=== PATIENT | female | born 1960 | race Caucasian/White ===

== ENCOUNTER 2019-04-14 18:55 | Emergency (ER) | payer SELFPAY ==
[2019-04-14 19:23] VITALS: BP 157/83; PULSE 76; RESP 16; TEMP 37; O2SAT 96; BMI 31.9
[2019-04-14 19:53] VITALS: BP 144/82; PULSE 73; RESP 16; TEMP 36.7; O2SAT 95
--- NOTE | 2019-04-14 19:58 | XR_ITS ---
WS: [id number] Chest with right rib detail, 04/14/2019 Clinical Data: pain, s/p injury Comparison: PA and lateral chest, 04/26/2013. Findings: The lungs show no nodules, masses, or effusions. The heart is normal. No pneumonia or pneumothorax is seen. The patient has had an anterior cervical disc fusion The ribs are intact. No rib fractures seen. No subcutaneous emphysema is present. The patient has had a posterior lumbar fusion with pedicle screws attached with rods at L5-S1. XR/XR ribs RT mn 3V w CXR1V [id number] Impression: Negative chest with right rib detail.
--- NOTE | 2019-04-14 20:11 | ED_ITS ---
HPI - Fall General: Chief Complaint: Fall Stated Complaint: RIB PAIN Time Seen by Provider: 04/14/19 19:45 Source: patient Mode of arrival: ambulatory Limitations: no limitations History of Present Illness: HPI Narrative: Patient comes in today with complaints of right anterior rib pain. Patient reports falling about 10 days ago while getting up to help her father. Patient reports landing on her right side. Patient reports the pain was significant but continues to persist so she was concerned that she may have a fractured rib and she should not be caring for her father the way she is. Patient appears well. Patient appears in mild pain at rest. Review of Systems General: Reports: 10 or more systems reviewed and unremarkable except in HPI and below Musc: Reports: other (right anterior rib pain) PFSH ED PFSH: Statuses (acute, chronic, etc) shown below reflect problem list status as previously entered and may not be historically accurate Social History Smoking and tobacco status: former smoker Physical Exam Const: COMMON NORMALS: no apparent distress and oriented x3 GENERAL APPEARANCE: cooperative HENMT: COMMON NORMALS: normocephalic, external ears normal, EAC's normal, TM's normal bilaterally and external nose normal HEAD & SCALP: normal to inspection and normocephalic FACE & SINUS: normal facial exam NOSE: external nose normal GENERAL EAR: hearing not grossly impaired EXTERNAL EAR: Yes external ears normal EXTERNAL AUDITORY CANAL: EAC's normal TYMPA [place] MEMBRANE: TM's normal bilaterally MOUTH: oral and palatal mucosa normal THROAT: posterior oropharynx normal Eye: COMMON NORMALS: PERRL and EOMs intact bilaterally PUPIL: Yes PERRL Neck/C-Spine: COMMON NORMALS: full ROM and no lymphadenopathy Lymph: LYMPHATIC: no lymphedema noted Chest: COMMONS NORMALS: inspection of chest normal CHEST: Yes symmetrical chest wall rise, No crepitus and Yes other (right anterior rib pain on palpation) Resp: COMMON NORMALS: normal respiratory effort and clear to auscultation bilaterally AUSCULTATION: clear to auscultation bilaterally Cardio: COMMON NORMALS: regular rate and regular rhythm RATE: regular rate RHYTHM: regular rhythm GI: COMMON NORMALS: normal to inspection, nondistended, normoactive bowel sounds and non-tender : COMMON NORMALS: Yes no CVA tenderness BLADDER/KIDNEY EXAM: Yes no CVA tenderness Back/Pelvis: COMMON NORMALS: no CVA tenderness and thoracic and lumbar spine normal to inspection Extremity: COMMON NORMALS: normal to inspection GENERAL: No edema Neuro: COMMON NORMALS: oriented x3, moves all extremities and no focal motor deficits Psych: COMMON NORMALS: mental status grossly normal and cooperative Skin: COMMON NORMALS: no rashes or lesions noted GENERAL SKIN EXAM: no rashes or lesions noted Course Vital Signs: Vital signs: Vital Signs Temperature 98.0 F 04/14/19 19:53 Pulse Rate 73 04/14/19 19:53 Respiratory Rate 16 04/14/19 19:53 Blood Pressure 144/82 04/14/19 19:53 Pulse Oximetry 95 04/14/19 19:53 MDM - Fall MDM Narrative: Medical decision making narrative: Patient comes in today with complaints of right rib pain. Patient is concerned that she may have a fracture there. Exam notes tenderness to the right lateral lower ribs. Differential diagnosis includes fracture, costochondritis, sprain. X-ray of the did no acute fracture that was obvious. Reviewed exam with patient with recommendations for treatment and follow-up. Patient reports understanding. Discharge Plan Discharge Patient Disposition: Home, Self-Care Clinical Impression: Contusion of rib on right side Qualifiers: Encounter type: initial encounter Qualified Code(s): S20.211A - Contusion of right front wall of thorax, initial encounter Condition: Stable Prescriptions: New naproxen 500 mg tablet 500 mg PO BID Qty: 30 RF: 0 Discharge Orders: Discharge Order (Routine); Ordered 04/14/19 Ordered By: Corey Paiz Discharge Diet: Usual diet Discharge Activity: Increase activity as tolerated Patient Instructions: Thoracic Pain (ED) Activity Restrictions/Additional Instructions: Activity as tolerated Drink plenty of water with medications Follow-up with primary care Return as needed for new concerns Coding Level of Care Code ED Security Sales Manager for Sulma Fwsandra Exam Problem Focused
[2019-04-14 21:12] VITALS: BP 177/93; PULSE 70; RESP 16; TEMP 36.9; O2SAT 100
== END 2019-04-14 21:13 | disposition home or self-care (01) ==
PROVIDERS: Emergency Provider Nurse Practitioner Family
DX: S20.211A Contusion of right front wall of thorax, initial encounter (principal); W19.XXXA Unspecified fall, initial encounter; Z87.891 Personal history of nicotine dependence
CPT/HCPCS: 71101; 99281

== ENCOUNTER 2019-10-28 14:12 | Outpatient (CLI) | payer SELFPAY ==
--- NOTE | 2019-10-28 14:29 | XR_ITS ---
WS: [id number] Right ankle, 3 views, 10/28/2019 Clinical Data: ANKLE PAIN Comparison: None. Findings: No fractures or dislocations are seen. The ankle mortise is normal. The talus and calcaneus are unrem arkable. No soft tissue swelling over the medial or lateral malleolus is seen. There is a small plantar spur and an Achilles spur. XR/XR ankle RT min 3V* [id number] Impression: Negative right ankle.
--- NOTE | 2019-10-28 14:29 | XR_ITS ---
WS: [id number] Right leg including the tibia and fibula, 10/28/2019 Clinical Data: LEG PAIN Comparison: None. Findings: No fractures or dislocations are seen. The tibia and fibula are intact. The soft tissues are normal. XR/XR tibia fibula RT 2V [id number] Impression: Negative for fracture.
== END 2019-10-28 14:13 | disposition home or self-care (01) ==
LOC: RADWPI 14:18
PROVIDERS: PCP Nurse Practitioner Family; Visit Provider Nurse Practitioner Family
DX: M79.604 Pain in right leg (principal); M25.571 Pain in right ankle and joints of right foot
CPT/HCPCS: 73590; 73610

== ENCOUNTER 2020-01-05 15:11 | Outpatient (CLI) | payer SELFPAY ==
--- NOTE | 2020-01-05 15:19 | MM_ITS ---
WS: [id number] BILATERAL DIGITAL SCREENING MAMMOGRAPHY WITH CAD CLINICAL INFORMATION: SCREENING HISTORY: 6 COMPARISON: January 13, 2017 TECHNIQUE: Bilateral CC and MLO views. FINDINGS: The breasts are composed of heterogeneous fibroglandular density tissue, which can limit the detectio n of small underlying mass lesions. No suspicious mass, asymmetry, calcifications, or architectural d istortion. No evidence of malignancy. Incidental axillary tail lymph nodes. A few punctate calcificat ions. Vascular calcification. MM/[place] [id number] IMPRESSION: BI-RADS: 2-Benign FOLLOW UP: 1 Year Follow-up Recommend return to annual screening mammography.
== END 2020-01-05 15:12 | disposition home or self-care (01) ==
LOC: RADSHAW 15:16
PROVIDERS: PCP Nurse Practitioner Family; Visit Provider Internal Medicine
DX: Z12.31 Encounter for screening mammogram for malignant neoplasm of breast (principal)
CPT/HCPCS: 77067

== ENCOUNTER 2020-01-05 15:30 | Outpatient (CLI) | payer SELFPAY ==
--- NOTE | 2020-01-05 15:45 | US_ITS ---
WS: [id number] Pelvic ultrasound, 01/05/2020 Clinical Data: DUB Comparison: None. Findings: The uterus measures 9.6 cm x 4.8 cm x 4.2 cm. There are small fibroids in the uterus. Largest measure s 1.31 x 1.81 x 1.96 cm. The endometrium is 0.8 cm. No intrauterine or abnormal intrauterin e mass is seen. The cervical length is 4.8 cm. The ovaries were not imaged. There is no fluid in the cul-de-sac. US/US pelvic with transvaginal Impression: 1. Uterine leiomyomas. 2. Thickened endometrium. 3. Ovaries not imaged.
== END 2020-01-05 15:31 | disposition home or self-care (01) ==
PROVIDERS: PCP Nurse Practitioner Family; Visit Provider Nurse Practitioner Family
DX: N93.9 Abnormal uterine and vaginal bleeding, unspecified (principal); D25.9 Leiomyoma of uterus, unspecified; R93.89 Abnormal findings on diagnostic imaging of other specified body structures
CPT/HCPCS: 76830; 76856

== ENCOUNTER → 2020-01-25 15:10 | Outpatient (BNVA) | payer SELFPAY | PROVIDERS: PCP Nurse Practitioner Family; Visit Provider Obstetrics & Gynecology | DX: R32 Unspecified urinary incontinence (principal); N95.0 Postmenopausal bleeding | CPT/HCPCS: 80053; 88305 ==

== ENCOUNTER → 2020-02-23 15:55 | Outpatient (BNVA) | payer OTHER, SELFPAY | PROVIDERS: PCP Internal Medicine; Visit Provider Nurse Practitioner Family | DX: Z20.828 Contact with and (suspected) exposure to other viral communicable diseases (principal); J06.9 Acute upper respiratory infection, unspecified; R43.0 Anosmia | CPT/HCPCS: 87635 ==

== ENCOUNTER 2020-02-27 13:56 | Outpatient (CLI) | payer SELFPAY ==
--- NOTE | 2020-02-27 14:00 | XR_ITS ---
WS: [id number] Chest 2 views, 02/27/2020 Clinical Data: COUGH Comparison: PA chest, 04/14/2019. Findings: No nodules, masses or effusions are seen. The heart is normal. The pulmonary vascularity is not increased. No pneumonia or pneumothorax is seen. The aortic arch shows minimal calcification. Th e patient has had an anterior cervical disc fusion. XR/XR chest 2V* [id number] Impression: Negative chest.
== END 2020-02-27 13:57 | disposition home or self-care (01) ==
LOC: RADWPI 13:58
PROVIDERS: PCP Internal Medicine; Visit Provider Nurse Practitioner Family
DX: R05 Cough (principal)
CPT/HCPCS: 71046

== ENCOUNTER → 2020-03-02 14:43 | Outpatient (BNVA) | payer SELFPAY | PROVIDERS: PCP Internal Medicine; Visit Provider Internal Medicine | DX: Z01.812 Encounter for preprocedural laboratory examination (principal); Z20.828 Contact with and (suspected) exposure to other viral communicable diseases | CPT/HCPCS: 87635 ==

== ENCOUNTER 2020-03-06 14:06 | Outpatient (CLI) | payer SELFPAY ==
--- NOTE | 2020-03-06 14:19 | CT_ITS ---
WS: [id number] LDCT LUNG CANCER SCREENING HISTORY: NICOTINE DEPENDENCE TECHNIQUE: Axial imaging performed from the apices to 1 cm below the costophrenic angles. Coronal and sagittal reformats are submitted with axial MIP series. All CT scans at [facility] use at least one of these dose optimization techniques: automated exposure control; mA and/or kV adjustment per patient size (includes targeted exams where dose is matched to clinical indication); or iterativ e reconstruction. DLP: 57.75 mGy.cm DIvol: 1.58 mGy COMPARISON: None available. Diagnostic quality: Limited by body habitus. Lung Nodules: Partially calcified 3 mm nodule medial LEFT upper lobe on image 61 of series 3. Otherwi se interstitial thickening bilaterally with thickening of the distal airways. No endobronchial lesion s. Lungs: Upper expanded lungs with emphysema. Heart: Mild enlargement of the heart. Other findings: Pulmonary artery size is slightly enlarged. Small hiatal hernia. CT/CT lung screening [id number] IMPRESSION: LUNG-RADS: 1-Negative FOLLOW UP: 12 Month: Continue annual screening with LDCT OTHER FINDINGS (S MODIFIER): None.
== END 2020-03-06 14:07 | disposition home or self-care (01) ==
LOC: RAD 14:15
PROVIDERS: PCP Internal Medicine; Visit Provider Internal Medicine
DX: Z12.2 Encounter for screening for malignant neoplasm of respiratory organs (principal); F17.200 Nicotine dependence, unspecified, uncomplicated; K44.9 Diaphragmatic hernia without obstruction or gangrene
CPT/HCPCS: G0297

== ENCOUNTER 2020-03-07 13:15 | Outpatient (CLI) | payer SELFPAY ==
--- NOTE | 2020-03-07 09:06 | PFTS_ITS ---
Date of Study:03/07/20 Date of Dictation: 03/07/20 MECHANICS: Forced vital capacity (FVC) is normal. Forced expiratory volume in one second (FEV1) is normal. FEV1/FVC is normal. FLOW VOLUME LOOP: normal. . LUNG VOLUMES: Not measured DIFFUSING CAPACITY FOR CARBON MONOXIDE: Not measured . INTERPRETATION: The spirometry is normal. MTDD
--- NOTE | 2020-03-07 14:36 | PFTS_ITS ---
Date of Study:03/07/20 Date of Dictation: MECHANICS: Forced vital capacity (FVC) is . Forced expiratory volume in one second (FEV1) is . FEV1/FVC is . FLOW VOLUME LOOP: . LUNG VOLUMES: Total lung capacity (TLC) is . Residual volume (RV) is . DIFFUSING CAPACITY FOR CARBON MONOXIDE: . INTERPRETATION: The pulmonary function tests are . mechanics and lung volumes. Gas exchange (DLCO) is . MTDD
== END 2020-03-07 13:16 | disposition home or self-care (01) ==
LOC: RT 13:16
PROVIDERS: PCP Internal Medicine; Visit Provider Internal Medicine
DX: R05 Cough (principal)
CPT/HCPCS: 94010

== ENCOUNTER → 2020-03-21 15:42 | Outpatient (BNVA) | payer SELFPAY | PROVIDERS: Absent Provider Internal Medicine; PCP Internal Medicine; Referring Provider Obstetrics & Gynecology; Visit Provider Nurse Practitioner Family | DX: N39.46 Mixed incontinence (principal) | CPT/HCPCS: 81003; 87086 ==

== ENCOUNTER → 2020-04-05 12:57 | Outpatient (BNVA) | payer SELFPAY | PROVIDERS: PCP Internal Medicine; Visit Provider Nurse Practitioner Family | DX: R32 Unspecified urinary incontinence (principal); N39.46 Mixed incontinence | CPT/HCPCS: 81003 ==

== ENCOUNTER 2020-04-25 11:27 | Outpatient (CLI) | payer SELFPAY ==
--- NOTE | 2020-04-25 11:33 | US_ITS ---
WS: [id number] ULTRASOUND RENAL TECHNIQUE: Ultrasound examination of both kidneys. CLINICAL INFORMATION: CKD STAGE 3 COMPARISON: None. FINDINGS: RIGHT: Right kidney is normal in size and appearance. Echogenicity: Normal. Cortical thickness: 1.5 cm; Normal. Hydronephrosis: None. Perinephric fluid: None. Right kidney measures: 10.6 cm x 5.8 cm x 4.8 cm. LEFT: Left kidney is normal in size and appearance. Echogenicity: Normal. Cortical thickness: 1.4 cm; Normal. Hydronephrosis: None. Perinephric fluid: None. Left kidney measures: 10.7 cm x 6.1 cm x 6.8 cm. Normal visualized aorta. US/US renal BI* [id number] IMPRESSION: Normal renal ultrasound
== END 2020-04-25 11:28 | disposition home or self-care (01) ==
LOC: US 11:29
PROVIDERS: PCP Internal Medicine; Visit Provider Registered Nurse
DX: N18.32 Chronic kidney disease, stage 3b (principal)
CPT/HCPCS: 76770

== ENCOUNTER 2020-04-26 14:16 | Outpatient (CLI) | payer SELFPAY ==
[2020-04-26 15:05] LABS: Basophils # 0.1 10^3/uL (0.0-0.1); Basophils % 0.9 %; Eosinophils # 0.2 10^3/uL (0.0-0.8); Eosinophils % 2.3 %; Hematocrit 42.3 % (37.0-47.0); Hemoglobin 13.8 g/dL (11.5-15.3); Lymphocytes # 2.3 10^3/uL (0.8-4.8); Lymphocytes % 30.4 %; Mean Corpuscular HGB Conc 32.6 g/dL (30.0-36.0); Mean Corpuscular Hemoglobin 32.1 pg (28.0-34.0); Mean Corpuscular Volume 98.4 fL (81-99); Mean Platelet Volume 9.7 fL (7.4-10.4); Monocytes # 0.5 10^3/uL (0.2-0.9); Monocytes % 6.9 %; Neutrophils # 4.54 10^3/uL (1.8-7.7); Neutrophils % 59.2 %; Nucleated Red Blood Cells % 0 %; Platelet Count 282 10^3/cmm (130-400); Red Cell Distribution Width 13.8 % (12.1-15.1); White Blood Count 7.7 10^3/uL (4.0-10.0)
[2020-04-26 15:16] LABS: Albumin Level 4.3 g/dL (3.5-5.2); Anion Gap 11.6 (5-19); Blood Urea Nitrogen 18 mg/dL (6-20); Calcium 9.7 mg/dL (8.5-10.5); Carbon Dioxide 29 mmol/L (22-29); Chloride 103 mmol/L (98-107); Glomerular Filtration Rate 73.4 mL/min (90-130); Glucose 166 mg/dL (65-115); Phosphorus 3.5 mg/dL (2.5-4.5); Potassium 4.6 mmol/L (3.5-5.1); Sodium 139 mmol/L (136-145)
== END 2020-04-26 14:17 | disposition home or self-care (01) ==
LOC: LAB 14:20
PROVIDERS: PCP Internal Medicine; Visit Provider Internal Medicine Nephrology
DX: N18.32 Chronic kidney disease, stage 3b (principal)
CPT/HCPCS: 36415; 80069; 85025

== ENCOUNTER → 2020-04-28 17:16 | Outpatient (BNVA) | payer OTHER, SELFPAY | PROVIDERS: PCP Internal Medicine; Visit Provider Nurse Practitioner | DX: Z20.828 Contact with and (suspected) exposure to other viral communicable diseases (principal); B34.9 Viral infection, unspecified | CPT/HCPCS: 87635 ==

== ENCOUNTER 2020-05-03 15:38 | Inpatient (IN) | payer SELFPAY ==
[2020-05-03] VITALS (8 sets, daily range): BP systolic 116–158; BP diastolic 63–82; PULSE 61–91; RESP 14–18; TEMP 36.7–37; O2SAT 91–98; BMI 30.4
--- NOTE | 2020-05-03 16:06 | ECG_ITS ---
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
--- NOTE | 2020-05-03 16:06 | XRR_ITS ---
PROCEDURE INFORMATION: Exam: XR Chest, 1 View Exam date and time: 05/03/2020 4:13 PM Age: 59 years old Clinical indication: Type not specified; Prior surgery; Surgery type: Breast; Patient HX: Central chest pain , achy pain in upper abd TECHNIQUE: Imaging protocol: XR of the chest Views: 1 view. COMPARISON: CR XR chest 2V* [id number] 02/27/2020 2:07 PM FINDINGS: Lungs: No consolidation. Pleural spaces: Unremarkable. No pleural effusion. No pneumothorax. Heart/Mediastinum: No cardiomegaly. Bones/joints: No acute fracture. Surgical hardware noted in the lower cervical spine. XR/XR chest 1V portable [id number] IMPRESSION: No acute findings.
[2020-05-03 16:30] LABS: Basophils # 0.1 10^3/uL (0.0-0.1); Basophils % 0.8 %; Eosinophils # 0.2 10^3/uL (0.0-0.8); Eosinophils % 2.1 %; Hematocrit 41.6 % (37.0-47.0); Hemoglobin 13.9 g/dL (11.5-15.3); Lymphocytes # 2.4 10^3/uL (0.8-4.8); Lymphocytes % 29.1 %; Mean Corpuscular HGB Conc 33.4 g/dL (30.0-36.0); Mean Corpuscular Volume 98.8 fL (81-99); Mean Platelet Volume 9.4 fL (7.4-10.4); Monocytes # 0.5 10^3/uL (0.2-0.9); Monocytes % 5.6 %; Neutrophils % 62.2 %; Nucleated Red Blood Cells % 0 %; Platelet Count 252 10^3/cmm (130-400); Red Blood Count 4.21 10^6/uL (4.1-5.3); Red Cell Distribution Width 13.7 % (12.1-15.1); White Blood Count 8.4 10^3/uL (4.0-10.0)
[2020-05-03] MEDS: aspirin 81 mg Chew Tablet 324 MG PO (16:33)
[2020-05-03 16:57] LABS: Alanine Aminotransferase 19 U/L (0-33); Albumin Level 4.2 g/dL (3.5-5.2); Alkaline Phosphatase 79 IU/L (35-105); Anion Gap 15.2 (5-19); Aspartate Amino Transferase 21 U/L (0-32); Blood Urea Nitrogen 19 mg/dL (6-20); Calcium 9.2 mg/dL (8.5-10.5); Carbon Dioxide 25 mmol/L (22-29); Chloride 103 mmol/L (98-107); Globulin 3.2 g/dL (1.3-4.6); Glomerular Filtration Rate 73.4 mL/min (90-130); Glucose 177 mg/dL (65-115); Osmolality Calculated 295 mOsm/kg (285-295); Potassium 4.2 mmol/L (3.5-5.1); Sodium 139 mmol/L (136-145); Total Bilirubin 0.5 mg/dL (0.15-1.2); Total Protein 7.4 g/dL (6.6-8.7)
[2020-05-03 16:58] LABS: Troponin(5th) Baseline 6 ng/L (0-10)
[2020-05-03 17:15] LABS: D Dimer 0.29 ug/mIFEU (0-0.59)
[2020-05-03 17:30] LABS: SARS Covid-2 Antigen Negative (Negative)
--- NOTE | 2020-05-03 17:49 | W.ED.CHESTPA ---
HPI - Chest Pain General: Chief Complaint: Chest Pain Stated Complaint: CHEST PAIN, SOB, MUSCLE ACHES Time Seen by Provider: 05/03/20 16:03 History of Present Illness: HPI narrative: This patient is a 59-year-old female who presents today with chest pain and shortness of breath. She reports that 8 days ago she started feeling poorly with cough, subjective fevers, chills, body aches. Thursday she felt worse and went to urgent care where she was tested for Covid. That was a PCR test and it was negative. She was put on a Z-Parker for presumed bronchitis. She is a smoker. She continues to not feel very well. 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 She was able to continue working and went to her next clients house where she developed chest pain. That prompted her to come to the ER. She said even starting a week ago she had pain across her lower ribs in the back which gradually spread across around the front of her chest. This chest pain today is similar but worse. She does have history of being a smoker but said she had some pulmonary function tests and a CT scan fairly recently that were normal. She does not have a history of cardiac disease. She does have a family history of heart disease. She also has high blood pressure and high cholesterol. MD complaint: chest pain Onset (ago): week(s) (1, chest pain for 1 day) Timing of current episode: episodic Prior episodes: No Onset: during exertion Pain location: left chest and right chest Pain radiation: back Severity: severe Quality: tightness, aching and heaviness Relieving factors: nothing Exacerbating factors: exertion and inspiration Context: recent illness Associated symptoms: Reports diaphoresis, dyspnea, fever(s) and nausea Treatment prior to arrival: none Review of Systems General: Reports: 10 or more systems reviewed and unremarkable except in HPI and below Const: Reports: fever(s) and diaphoresis Eyes: Denies: change in vision ENMT: Denies: odynophagia Card: Reports: chest pain, lightheadedness and dyspnea on exertion; Denies: swelling of feet/ankles Resp: Reports: dyspnea, productive cough and change in phlegm color; Denies: non-productive cough GI: Reports: nausea : Denies: flank pain or difficulty voiding Musc: Denies: neck pain or back pain Skin/Breast: Denies: rash Neuro: Denies: headache(s), numbness in extremities or weakness in extremities Dennis/Lymph: Denies: easy bruising or easy bleeding PFS ED PFSH: Medical History Anxiety Back pain, chronic Depression Hypercholesterolemia Hypertension Hypothyroidism Osteoarthritis Urinary incontinence, mixed Surgical History H/O left wrist surgery H/O Spinal surgery ALDF and ACDF. H/O vaginal surgery Urethral sling History of 2 sections S/P colonoscopy S/P excision of lipoma Right buttocks. S/P lumpectomy, left breast S/P tonsillectomy Family History Mother Anemia Alzheimer disease Father Heart disease Hypertension Kidney disease COPD (chronic obstructive pulmonary disease) Social History Smoking and tobacco status: current every day smoker cigarettes Packs smoked per day: 0.75 [ Other cigarette details: started age 15 ] and e-cigarettes E-Cigarette Details: vaporizer device Quit status (tobacco): has tried quititng Alcohol intake: current Alcohol intake frequency: 0-2 Drinks per Day Substance/Drug Use: never Physical Exam Const: COMMON NORMALS: patient oriented x3, no limitations and alert GENERAL APPEARANCE: cooperative and anxious NUTRITIONAL APPEARANCE: overweight ORIENTATION/CONSCIOUSNESS: Yes awake, Yes oriented to person, Yes oriented to place and Yes oriented to time HENMT: HEAD & SCALP: normal to inspection FACE & SINUS: normal facial exam Eye: GENERAL EYE: appearance normal, both eyes and all related structures Neck/C-Spine: COMMON NORMALS: supple, no meningeal signs and no JVD Chest: COMMONS NORMALS: normal inspection of the chest Resp: COMMON NORMALS: normal respiratory effort and No use of accessory muscles AUSCULTATION: crackles Laterality: bilateral Cardio: COMMON NORMALS: no JVD, regular rate, regular rhythm and No murmurs present (Cardio) RATE: regular rate RHYTHM: regular rhythm GI: COMMON NORMALS: Normal to inspection, nondistended, normoactive bowel sounds present, Soft to palpation and non-tender INSPECTION: Yes normal to inspection AUSCULTATION: Yes normoactive bowel sounds PALPATION: Yes Soft to palpation Back/Pelvis: COMMON NORMALS: thoracic and lumbar spine normal to inspection Extremity: COMMON NORMALS: normal to inspection Neuro: COMMON NORMALS: patient oriented x3, moves all extremities, no focal motor deficits and no sensory deficits noted SENSORIUM/ORIENTATION: Yes alert, Yes oriented to person, Yes oriented to place and Yes oriented to time MENINGEAL SIGNS: Yes no meningeal signs Psych: COMMON NORMALS: mental status grossly normal, cooperative and normal affect Skin: COMMON NORMALS: no rashes or lesions noted and turgor normal GENERAL SKIN EXAM: no rashes or lesions noted and turgor normal Course ED course: Patient presents with chest pain, shortness of breath. This was exertional but she also describes symptoms of a viral URI going on for about a week. She had a negative Covid test but I did repeat that here. The antigen was negative but I have sent a PCR as well. Chest x-ray and other work-up does not really suggest Covid. She has a left bundle branch block on her EKG and I do not have an old EKG for comparison. She tells me that in the past when she has had EKGs she has been told that they were completely normal. She does not have a PE. There is no evidence of pneumonia. She does have multiple risk factors for cardiac disease including cholesterol, hypertension, family history, smoking and she also had an elevated blood sugar today which she did not anticipate. She is never had a cardiac work-up. I think it is reasonable to bring her in to do that given the exertional nature of her chest pain and shortness of breath today. Vital Signs: Vital signs: Vital Signs Temperature 98.6 F 05/03/20 23:00 Pulse Rate 61 05/03/20 23:00 Respiratory Rate 18 05/03/20 23:00 Blood Pressure 147/68 05/03/20 23:00 Pulse Oximetry 96 05/03/20 23:00 MDM - Chest Pain MDM Narrative: Medical decision making narrative: Covid, viral URI, PE, pneumonia, bronchitis, NM, unstable angina, aortic dissection, dehydration, electrolyte abnormality. Lab Data: Labs: Lab Results 05/03/20 05/03/20 05/03/20 Range/Units 16:22 16:22 16:22 WBC 8.4 (4.0-10.0) 10^3/ uL RBC 4.21 (4.1-5.3) 10^6/u L Hgb 13.9 (11.5-15.3) g/dL Hct 41.6 (37.0-47.0) % MCV 98.8 (81-99) fL MCH 33.0 (28.0-34.0) pg MCHC 33.4 (30.0-36.0) g/dL RDW 13.7 (12.1-15.1) % Plt Count 252 (130-400) 10^3/c mm MPV 9.4 (7.4-10.4) fL Neut % (Auto) 62.2 % Lymph % (Auto) 29.1 % Wilkinson % (Auto) 5.6 % Eos % (Auto) 2.1 % Baso % (Auto) 0.8 % Neut # (Auto) 5.20 (1.8-7.7) 10^3/u L Lymph # (Auto) 2.4 (0.8-4.8) 10^3/u L Wilkinson # (Auto) 0.5 (0.2-0.9) 10^3/u L Eos # (Auto) 0.2 (0.0-0.8) 10^3/u L Baso # (Auto) 0.1 (0.0-0.1) 10^3/u L Nucleated RBC % (a uto) 0 % Nucleated RBCs # 0.0 /100WBC D-Dimer 0.29 (0-0.59) ug/mIFE U Sodium 139 (136-145) mmol/L Potassium 4.2 (3.5-5.1) mmol/L Chloride 103 (98-107) mmol/L Carbon Dioxide 25 (22-29) mmol/L Anion Gap 15.2 (5-19) BUN 19 (6-20) mg/dL Creatinine 0.8 (0.5-0.9) mg/dL GFR Calculation 73.4 L (90-130) mL/min Glucose 177 H (65-115) mg/dL Calculated Osmolal ity 295 (285-295) mOsm/k g Calcium 9.2 (8.5-10.5) mg/dL Total Bilirubin 0.5 (0.15-1.2) mg/dL AST 21 (0-32) U/L ALT 19 (0-33) U/L Alkaline Phosphata se 79 (35-105) IU/L Troponin T Baselin e (0-10) ng/L Troponin T 120 Min shaka (0-10) ng/L Delta Troponin T (0-10) ABS# Total Protein 7.4 (6.6-8.7) g/dL Albumin 4.2 (3.5-5.2) g/dL Globulin 3.2 (1.3-4.6) g/dL SARS-CoV-2 Ag (Rap id) (Negative) 05/03/20 05/03/20 05/03/20 Range/Units 16:22 16:36 18:15 WBC (4.0-10.0) 10^3/ uL RBC (4.1-5.3) 10^6/u L Hgb (11.5-15.3) g/dL Hct (37.0-47.0) % MCV (81-99) fL MCH (28.0-34.0) pg MCHC (30.0-36.0) g/dL RDW (12.1-15.1) % Plt Count (130-400) 10^3/c mm MPV (7.4-10.4) fL Neut % (Auto) % Lymph % (Auto) % Wilkinson % (Auto) % Eos % (Auto) % Baso % (Auto) % Neut # (Auto) (1.8-7.7) 10^3/u L Lymph # (Auto) (0.8-4.8) 10^3/u L Wilkinson # (Auto) (0.2-0.9) 10^3/u L Eos # (Auto) (0.0-0.8) 10^3/u L Baso # (Auto) (0.0-0.1) 10^3/u L Nucleated RBC % (a uto) % Nucleated RBCs # /100WBC D-Dimer (0-0.59) ug/mIFE U Sodium (136-145) mmol/L Potassium (3.5-5.1) mmol/L Chloride (98-107) mmol/L Carbon Dioxide (22-29) mmol/L Anion Gap (5-19) BUN (6-20) mg/dL Creatinine (0.5-0.9) mg/dL GFR Calculation (90-130) mL/min Glucose (65-115) mg/dL Calculated Osmolal ity (285-295) mOsm/k g Calcium (8.5-10.5) mg/dL Total Bilirubin (0.15-1.2) mg/dL AST (0-32) U/L ALT (0-33) U/L Alkaline Phosphata se (35-105) IU/L Troponin T Baselin e 6 (0-10) ng/L Troponin T 120 Min shaka 6.00 (0-10) ng/L Delta Troponin T 0 (0-10) ABS# Total Protein (6.6-8.7) g/dL Albumin (3.5-5.2) g/dL Globulin (1.3-4.6) g/dL SARS-CoV-2 Ag (Rap id) Negative (Negative) Discharge Plan Discharge Admit Provider: Salvatore Geronimo Coding Level of Care Code ED Medicaid Service Coordinator for Chg Fwd Exam Comprehensive
--- NOTE | 2020-05-03 18:06 | ECG_ITS ---
[facility] Test Date: 2020-05-03 Pat Name: Ryan Sanchez Department: Room: Gender: Female Visual Supervisor: : 1960 Requested By: Marquita Lima Order Number: [id number] Reading MD: WOODROW DOTY Measurements Intervals [place] Rate: 74 P: 62 TN: 146 QRS: 64 QRSD: 152 T: 46 QT: 424 QTc: 473 Interpretive Statements SINUS RHYTHM LEFT BUNDLE BRANCH BLOCK [120+ ms QRS DURATION, 80+ ms Q/S IN V1/V2, 85+ ms R IN I/aVL/V5/V6] Compared to ECG 05/03/2020 15:57:24 Left bundle-branch block now present Electronically Signed On 05-03-2020 18:19:01 HOMOGENIZER OPERATOR by WOODROW DOTY [id number]
--- NOTE | 2020-05-03 18:39 | CTR_ITS ---
PROCEDURE INFORMATION: Exam: CT Chest With Contrast; Diagnostic Exam date and time: 05/03/2020 7:12 PM Age: 59 years old Clinical indication: Prior surgery; Surgery type: Breast; Patient HX: Central chest pain, SOB TECHNIQUE: Imaging protocol: Diagnostic computed tomography of the chest with contrast. Radiation optimization: All CT scans at this facility use at least one of these dose optimization techniques: automated exposure control; mA and/or kV adjustment per patient size (includes targeted exams where dose is matched to clinical indication); or iterative reconstruction. Contrast material: OMNI 300; Contrast volume: 95 ml; Contrast route: INTRAVENOUS (IV); COMPARISON: CR XR chest 1V portable [id number] 05/03/2020 4:23 PM RADIATION DOSE METRICS: Total DLP (mGy-cm): 747.98 FINDINGS: There are degenerative changes of the spine. There is atelectasis and scarring within the lung bases. There is no focal consolidation. There is no pleural effusion. There is no pneumothorax. There are no suspicious pulmonary nodules. The central airways are normal in caliber. The thyroid gland is unremarkable. Prominent mediastinal lymph nodes are present. There is no hilar adenopathy. The aorta is normal in caliber with no evidence for aneurysm or dissection. The heart is normal in size. The upper abdominal structures are unremarkable. CT/CT chest w con* [id number] IMPRESSION: 1. The scarring atelectasis within the lung bases. No focal infiltrates. Findings appear similar to the recent CT lung cancer screening. 2. Prominent mediastinal lymph nodes similar to the old exam. Radiation Dose CTDIVOL = (mGy): DLP = 747.98 (mGy-cm)
[2020-05-03 18:44] LABS: Troponin 5 2HR Delta 0 ABS# (0-10)
[2020-05-03] MEDS: iohexol 300 mg/mL 100 mL Btl IV (19:25)
[2020-05-03] MEDS: aspirin 325 mg Tablet PO (21:37)
[2020-05-03] MEDS: HYDROcodone-acetaminophen 10-325 mg Tablet 1 TAB PO (21:38)
--- NOTE | 2020-05-03 21:41 | P.HP_ITS ---
Providers/Chief Complaint Primary Care Provider: Veronica Dial MD Chief Complaint: CHEST PAIN, SOB, MUSCLE ACHES History of Present Illness Ryan Sanchez is a 59 year old female who carries history of hypothyroidism, depression/anxiety presented today with chief complaint of chest discomfort. 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 She experienced diaphoresis with mild exertion however denied nausea, vomiting, diarrhea orthopnea and PND. She is describing her chest discomfort as constant which gets worse on movement. Diagnostics in the ER revealed normal CBC, BMP hemodynamics, troponin 6x2 Covid antigen negative, EKG showed new left bundle branch block, patient was chest pain-free at the time of my evaluation She is an active smoker smokes half pack to 1 pack a day, decision was made to admit her and do a stress test Review of Systems Const: Reports: body aches, fatigue and malaise; Denies: fever(s) Eyes: Denies: change in vision ENMT: Denies: throat pain Card: Reports: chest pain; Denies: edema, swelling of feet/ankles or orthopnea Resp: Denies: dyspnea GI: Denies: abdominal pain : Denies: flank pain Musc: Denies: neck pain Skin/Breast: Denies: rash Neuro: Denies: headache(s) Psych: Denies: anxiety Endo: Denies: polyuria Dennis/Lymph: Denies: easy bruising All/Imm: Denies: urticaria Medications/Allergies Home Medications Medication Instructions Recorded Confirmed Last Taken Type atorvastatin 40 mg tablet 40 mg PO .COMPLEX 01/16/20 04/05/20 Unknown History cyclobenzaprine 5 mg tablet See Rx Instructions PO TID PRN 01/16/20 04/05/20 Unknown History gabapentin 300 mg capsule 300 mg PO .COMPLEX PRN 01/16/20 04/05/20 Unknown History levothyroxine 75 mcg capsule 75 mcg PO DAILY 01/16/20 04/05/20 Unknown History sertraline 100 mg tablet 100 mg PO DAILY 01/16/20 04/05/20 Unknown History lorazepam 0.5 mg tablet 0.5 mg PO DAILY PRN 01/25/20 04/05/20 Unknown History amlodipine 2.5 mg tablet 2.5 mg PO DAILY 04/05/20 04/05/20 Unknown History azithromycin 250 mg tablet See Rx Instructions PO .COMPLEX #6 04/28/20 04/28/20 Unknown Rx tab meloxicam 15 mg tablet 15 mg PO DAILY 04/28/20 04/28/20 Unknown History Allergies Allergy/AdvReac Type Severity Reaction Status Date / Time No Known Allergies Allergy Verified 04/28/20 16:36 PFSH Acute PFSH: Medical History Anxiety Back pain, chronic Depression Hypercholesterolemia Hypertension Hypothyroidism Osteoarthritis Urinary incontinence, mixed Surgical History H/O left wrist surgery H/O Spinal surgery ALDF and ACDF. H/O vaginal surgery Urethral sling History of 2 sections S/P colonoscopy S/P excision of lipoma Right buttocks. S/P lumpectomy, left breast S/P tonsillectomy Family History Mother Anemia Alzheimer disease Father Heart disease Hypertension Kidney disease COPD (chronic obstructive pulmonary disease) Social History Smoking and tobacco status: current every day smoker cigarettes Packs smoked per day: 0.75 [ Other cigarette details: started age 15 ] and e-cigarettes E- Cigarette Details: vaporizer device Quit status (tobacco): has tried quititng Alcohol intake: current Alcohol intake frequency: 0-2 Drinks per Day Substance/Drug Use: never Vitals/I&O/Wt Last Vital Signs Temp 98.0 F 05/03/20 15:48 Pulse 78 05/03/20 20:22 Resp 16 05/03/20 20:22 BP 116/67 05/03/20 20:22 Pulse Ox 91 05/03/20 20:22 Weight last 48 hrs Weight 90.718 kg Physical Exam Narrative: EXAM NARRATIVE: Very pleasant middle-aged female No active chest pain shortness of breath Appears stated age No active CHF presentation S1, S2 no signs of murmur or CHF Abdomen soft nontender bowel sound present Bilateral breath sounds without adventitious rhonchi or crackles Bilateral lower extremity without any edema gangrene or ulcer Patient does depict signs of anxiety with pressured speech No neurological deficit awake alert oriented x3 GCS 15 No joint swelling Her pain is not reproducible Data : 05/03/20 16:22 05/03/20 16:22 A&P Assessment and plan (1) Unstable angina: Unstable angina with multiple risk factors for coronary disease such as smoking, age, hypothyroidism, hypertension Would request Lexiscan stress test in the morning Echo, serial troponin and EKG Patient is chest pain-free troponin 6x2 EKG showing new left bundle branch block D-dimer unremarkable, her pain is not reproducible She is also describing pain in her shoulders bilaterally We will keep her n.p.o. and follow-up with Lexiscan stress test results Follow-up with TSH Status: Acute Additional A&P Information Hypothyroidism: Continue levothyroxine 75 mcg, follow-up with TSH N.p.o., start cardiac diet after stress test DVT prophylaxis: Lovenox Full code Anxiety/depression: I am holding her cyclobenzaprine, sertraline and lorazepam for now. Attestations Medical Necessity Statement*: Anticipating discharge in less than 48 hours continued Lexiscan stress test to rule out coronary ischemia for unstable angina Time Spent in Patient Care: (>than 50% of time spent in counselling and/or direct pt care on unit) . 50mins Coding Level of Care Code Acute [employer] for Chg Fwd Diagnoses Unstable angina I20.0
[2020-05-03] MEDS: doxycycline 100 mg Tablet PO (21:43)
--- NOTE | 2020-05-03 22:06 | ECG_ITS ---
[facility] [place] Test Date: 2020-05-03 Pat Name: Ryan Sanchez Department: Room: 259 Gender: Female Clinic Md Associate: : 1960 Requested By: Marquita Lima Order Number: [id number] Nick MD: Divya Antonio M.D. Measurements Intervals [place] Rate: 70 P: 66 VA: 144 QRS: 47 QRSD: 151 T: 55 QT: 442 QTc: 477 Interpretive Statements SINUS RHYTHM LEFT BUNDLE BRANCH BLOCK [120+ ms QRS DURATION, 80+ ms Q/S IN V1/V2, 85+ ms R IN I/aVL/V5/V6] Compared to ECG 05/03/2020 16:33:16 No significant changes Electronically Signed On 05-04-2020 16:10:56 INSURANCE LICENSING SUPERVISOR by Divya Atnonio M.D. [email or web address]
[2020-05-04] VITALS (11 sets, daily range): BP systolic 101–137; BP diastolic 53–82; PULSE 62–78; RESP 18–20; TEMP 36.3–37; O2SAT 96–98
--- NOTE | 2020-05-04 02:12 | NMCV_ITS ---
NM omega perf SPECT r/s* [id number] Ryan Sanchez Age: 59 Gender: F : 1960 Exam Date: 05/04/2020 11:32 Ordering Phys: Salvatore Geronimo MD Technologist: SOFIE Burnett Exam Location: [facility] Indications: Chest pain, SOB, muscle aches STRESS TEST Please see separate stress test report in [facility] for full findings IMAGE PROTOCOL Rest/Stress 1 Lexiscan Day Radiopharmaceutical Dose (mCi) Administration Site Administered by Rest: Tc-99m 11.0 IV SOFIE Burnett Sestamibi Stress:Tc-99m 33.0 IV SOFIE Burnett Sestamibi Rest: 04-May-2020 60 Discovery 630 Stress: 04-May-2020 45 Discovery 630 0.4mg Lexiscan. Images obtained in supine and prone position. SPECT RESULTS Technical Quality: Good Raw Data Analysis: Breast attenuation Image Corrections: No attenuation or motion correction applied Summed Stress Score: 7 Summed Rest Score: 13 Summed Difference Score: 0 PERFUSION FINDINGS Large area of patchy reduced tracer uptake with fixed perfusion defect noted in basal to distal anterior wall suggestive of old myocardial infarction versus scarring in the LAD territory. Large area of fixed perfusion defect noted in basal inferior and inferio-septal wall suggestive of old myocardial infarction versus scarring in the RCA territory. No ischemia noted. FUNCTIONAL RESULTS (calculated via Gated SPECT) Stress Image LV EF (%): 30 Stress EDV (mL):144 TID: 1.05 Stress ESV (mL):101 Rest Image LV EF (%): 39 FUNCTIONAL FINDINGS: Anterior wall hypokinesis, inferior wall akinesis IMPRESSIONS Large area of patchy reduced tracer uptake with fixed perfusion defect noted in basal to distal anterior wall suggestive of old myocardial infarction versus scarring in the LAD territory. Large area of fixed perfusion defect noted in basal inferior and inferio-septal wall suggestive of old myocardial infarction versus scarring in the RCA territory. No ischemia noted. Salvatore Seay MD (Electronically Signed) Final Date: 04 May 2020 15:11 S
--- NOTE | 2020-05-04 02:12 | USCV_ITS ---
Ryan Sanchez Age: 59 Gender: F : 1960 Exam Date: 05/04/2020 06:04 Ordering Phys: Salvatore Geronimo MD Technologist: Yamilet Mercedes Exam Location: [facility] [place] Indication: UNSTABLE ANGINA BP: 128 / 73 HR: 69 Rhythm: Sinus Technical Quality: Adequate MEASUREMENTS (Male / Female) Normal Values 2D ECHO LV Diastolic Diameter PLAX 4.2 cm 4.2 - 5.9 / 3.9 - 5.3 cm LV Systolic Diameter PLAX 2.8 cm LV Chamber Size 2.6 cm IVS Diastolic Thickness 1.4 cm 0.6 - 1.0 / 0.6 - 0.9 cm IVS Systolic Thickness 1.8 cm LVPW Diastolic Thickness 2.1 cm 0.6 - 1.0 / 0.6 - 0.9 cm LVPW Systolic Thickness 2.0 cm RV Chamber Size 2.5 cm LVOT Diameter 2.0 cm LV Ejection Fraction 2D Teich 63.8 % LV Ejection Fraction MOD 2C 66.0 % LV Ejection Fraction 2C AL 65.2 % LA Diameter 3.3 cm LA Width 3.1 cm LA Height 4.5 cm RA Width 3.4 cm RA Height 3.9 cm M-MODE LV Diastolic Diameter MM 6.1 cm 4.2 - 5.9 / 3.9 - 5.3 cm LV Systolic Diameter MM 5.0 cm LV Ejection Fraction MM Teich 36.0 % IVS Diastolic Thickness MM 0.8 cm 0.6 - 1.0 / 0.6 - 0.9 cm IVS Systolic Thickness MM 1.4 cm LVPW Diastolic Thickness MM 1.0 cm 0.6 - 1.0 / 0.6 - 0.9 cm LVPW Systolic Thickness MM 1.3 cm Aortic Annulus Diameter 2.6 cm LA Ao Ratio MM 1.4 MV E Point Septal Separation 1.7 cm DOPPLER AV Peak Velocity 179.0 cm/s LVOT Peak Velocity 109.0 cm/s AV Area Cont Eq vti 1.8 cm squared AV Area Cont Eq pk 1.9 cm squared MV Area PHT 3.7 cm squared Mitral E to A Ratio 0.8 MV E' Velocity 60.0 cm/s Mitral E to MV E' Ratio 13.9 Mitral E to LV E' Lateral Ratio 12.7 Mitral E to LV E' Septal Ratio 15.2 TR Peak Velocity 108.0 cm/s TR Peak Gradient 4.7 mmHg TV Peak E Velocity 37.0 cm/s Right Atrial Pressure 3.0 mmHg Pulmonary Artery Systolic Pressu 7.7 mmHg PV Peak Velocity 66.0 cm/s RV Acceleration Time 0.1 s RV Ejection Time 0.4 s RV AcT/ET 0.3 FINDINGS Left Ventricle Mildly increased left ventricular cavity size. Moderately decreased left ventricular systolic function. Left ventricular ejection fraction is estimated at 35 %. There is hypokinesis of basal to mid anteroseptal, basal to mid inferoseptal and apical septal pulido. Abnormal septal motion consistent with conduction abnormality. Normal diastolic function. Right Ventricle Normal right ventricular size and systolic function. Right ventricular systolic pressure 7.7 mmHg. Right Atrium Normal right atrial size. Right atrial pressure estimated at 3 mm Hg. Left Atrium Normal left atrial size. Mitral Valve Structurally normal mitral valve. No mitral valve stenosis. Trace mitral valve regurgitation. Aortic Valve Aortic valve not well visualized. No aortic valve stenosis. No aortic valve regurgitation. Tricuspid Valve Structurally normal tricuspid valve. Trace tricuspid valve regurgitation. Pulmonic Valve Pulmonic valve not well visualized. Pericardium No pericardial effusion. Aorta Normal sized aortic root. Normal sized inferior vena cava with normal respiratory variation. CONCLUSIONS 1. Mildly increased left ventricular cavity size. Moderately decreased left ventricular systolic function. Left ventricular ejection fraction is estimated at 35 %. There is hypokinesis of basal to mid anteroseptal, basal to mid inferoseptal and apical septal pulido. Normal diastolic function. 2. Normal right ventricular size and systolic function. 3. No significant valvular abnormality. 4. No prior similar studies to compare. Roxy Fregoso MD (Electronically Signed) Final Date: 04 May 2020 19:10 S
[2020-05-04] MEDS: enoxaparin 40 mg/0.4 mL Syringe SUBCUT (02:50)
[2020-05-04 03:09] LABS: Thyroid Stimulating Hormone 3.86 uIU/mL (0.27-4.20)
[2020-05-04] MEDS: levothyroxine 75 mcg Tablet PO (06:26)
--- NOTE | 2020-05-04 07:10 | ECG_ITS ---
[facility] Test Date: 2020-05-04 Pat Name: Ryan Sanchez Department: Room: 259 Gender: Female Vice President Of Manufacturing: : 1960 Requested By: Salvatore Geronimo Order Number: [id number] Nick MD: SALVATORE DOTY Interpretive Statements NAME OF STUDY: LEXISCAN SESTAMIBI STRESS TEST INDICATION: Angina NOTE: Please note that this is the electrocardiogram portion of the Lexiscan/Sestamibi stress test. The perfusion scan will be documented separately. DATA: Baseline heart rate was 81 beats per minute. Baseline blood pressure was 113/53 millimeters of mercury. Target heart rate was 161. Maximum heart rate achieved was 90. which was 55 % of the predicted target heart rate. Maximum blood pressure was 113/60 millimeters of mercury. The reason for ending the test was completion of the protocol. The patient did not experience any symptoms. ELECTROCARDIOGRAM: BASELINE: Sinus rhythm. Right axis. Left bundle branch block. EXERCISE: After Lexiscan injection, no ST-T changes suggestive of ischemic noted. No arrhythmia noted. CONCLUSION: Please note due to baseline abnormality of the EKG specificity and sensitivity of the EKG portion of LexiScan MIBI stress test will be low 1. EKG not suggestive of ischemia 2. Lexiscan injection unremarkable. 3. Perfusion scan will be documented separately. Electronically Signed On 05-04-2020 16:53:15 SR COMMUNITY MANAGER by SALVATORE DOTY [id number]
[2020-05-04] MEDS: isosorbide mononitrate ER 30 mg Tablet PO (10:28)
[2020-05-04] MEDS: nitroglycerin 0.4 mg sublingual Tablet SUBLINGUAL (10:31)
[2020-05-04] MEDS: regadenoson 0.4 Mg/5 ml Syringe IVP (13:10)
--- NOTE | 2020-05-04 13:24 | PC.CHAP ---
Pastoral Care Encounter/Spiritual Assessment Type of Contact [] Declined elementary reading tutor visit [] Patient/Family/Request visit [] Outpatient visit [xx] Follow-up visit [] Physician referral [] Code/Alert [] Routine visit [] Staff referral [] Actively dying [] Patient sleeping [] Family support [] [] Out of room [] Palliative care [] [xx] Receiving care in room [] Pre-surgical visit [] Trauma [] Long length of stay [] ICU visit [] Other: Relational/Emotional Strength [] Patient feels connected with others/family/visitors/staff [] Distress [] Loneliness/isolation [] Abandonment Spirituality of Patient [] Person of Karen [] Attends Sabianist of their Karen [] Believes in Prayer [] Reads Bible or Sikh materials [] There are Spiritual issues to be addressed Reception Interviewer Interventions [] Prayer [] Active listening [] Non-anxious presence [] Spiritual/emotional support [] Crisis/trauma care [] Spiritual counseling [] Bereavement support [] Provided bereavement packet [] Provided Bible/devotional materials [] Provided toy/stuffed animal, coloring book to patient or family member [] Provided Communion [] Anointing/[place] [] Salvation [] Completed spiritual assessment [] Other: Impact on Illness or Injury [] Angry [] Fearful [] Anxious [] Often cries [] Exhaustion [] Unable to work [] Unable to attend muslim [] Unable to walk/stand [] Unable to read [] Unable to drive [] Unable to eat/drink [] Unable to sleep [] Unable to be with family [] Patient intubated [] Other: Summary Continuous medical involvement. Visit not possible at this time. Time spent with patient 2 minutes
--- NOTE | 2020-05-04 13:41 | PM.PN ---
Subjective Subjective: Interval history: Patient continues to complain of substernal as well as left-sided chest, radiating across the chest.He had a similar episode of chest pain today in the morning also. At that time she was started on nitro and Imdur, to which she responded fairly well. She denied any nausea vomiting, palpitation diaphoresis. Her other vitals and labs have been reviewed. Vitals/I&O/Wt Last Vital Signs Temp 97.4 F L 05/04/20 08:00 Pulse 66 05/04/20 13:15 Resp 20 H 05/04/20 08:00 BP 101/53 05/04/20 13:15 Pulse Ox 96 05/04/20 09:29 05/03/20 05/04/20 05/04/20 22:59 06:59 14:59 Intake Total 480 / 480 Balance 480 / 480 Weight last 48 hrs Weight 90.718 kg Physical Exam Const: COMMON NORMALS: patient oriented x3 HENMT: COMMON NORMALS: normocephalic, atraumatic, hearing grossly normal bilaterally and external ears normal HEAD & SCALP: normocephalic and atraumatic EXTERNAL EAR: Yes external ears normal Eye: COMMON NORMALS: no scleral icterus GENERAL EYE: appearance normal, both eyes and all related structures Chest: COMMONS NORMALS: normal inspection of the chest and normal palpation of entire chest wall CHEST: Yes Symmetrical chest wall rise Resp: COMMON NORMALS: normal respiratory effort, No retractions, No use of accessory muscles and clear to auscultation bilaterally EFFORT & INSPECTION: Yes symmetric chest movement AUSCULTATION: clear to auscultation bilaterally Cardio: COMMON NORMALS: regular rate, regular rhythm, S1 normal heart sound present, S2 normal heart sound present, No gallops present (Cardio), No murmurs present (Cardio), No rub (Cardio) and Peripheral pulses 2+ throughout RATE: regular rate RHYTHM: regular rhythm HEART SOUNDS: S1 normal heart sound present and S2 normal heart sound present PERIPHERAL PULSES: Peripheral pulses 2+ throughout GI: COMMON NORMALS: Normal to inspection, nondistended, normoactive bowel sounds present, Soft to palpation, non-tender, No hepatosplenomegaly present and no masses AUSCULTATION: Yes normoactive bowel sounds PALPATION: Yes Soft to palpation and Yes No hepatosplenomegaly present RECTAL EXAM: deferred Extremity: COMMON NORMALS: no clubbing, cyanosis or edema and no pedal edema Neuro: COMMON NORMALS: patient oriented x3 Data : 05/03/20 16:22 05/03/20 16:22 A&P Assessment and plan (1) Unstable angina: Patient clinical findings and presentation is consistent with unstable angina. 2D echo:1. Mildly increased left ventricular cavity size. Moderately decreased left ventricular systolic function. Left ventricular ejection fraction is estimated at 35 %. There is hypokinesis of basal to mid anteroseptal, basal to mid inferoseptal and apical septal pulido. Normal diastolic function. 2. Normal right ventricular size and systolic function. 3. No significant valvular abnormality. Nuclear stress test: Large area of patchy reduced tracer uptake with fixed perfusion defect noted in basal to distal anterior wall suggestive of old myocardial infarction versus scarring in the LAD territory. Large area of fixed perfusion defect noted in basal inferior and inferio-septal wall suggestive of old myocardial infarction versus scarring in the RCA territory. No ischemia noted. Aspirin 81 mg p.o. daily Plavix 75 mg p.o. daily Lovenox 90 mg every 12 hours daily Lipitor 40 mg p.o. daily IMDUR 30 mg p.o. daily Sublingual nitro Cardiology consult in a.m. Status: Acute (2) Hypertension: Status: Acute (3) Hypothyroidism: Status: Acute (4) Hypercholesterolemia: Status: Acute Additional A&P Information CODE STATUS: Full code DVT prophylaxsis: On Lovenox Attestations Medical Necessity Statement*: Patient needs to be in hospital for management of unstable angina. Coding Level of Care Code Acute Supervisor Treating And Pumping for Sulma Alonso Diagnoses Unstable angina I20.0 Hypertension I10 Hypothyroidism E03.9 Hypercholesterolemia E78.00
[2020-05-04 17:58] LABS: Coronavirus Lab Test PTC Negative
[2020-05-04] MEDS: enoxaparin 100 mg/mL Syringe 90 MG SUBCUT (21:30)
[2020-05-04] MEDS: HYDROmorphone 1 mg/mL INJ 1 mL IVP (21:41)
[2020-05-05] VITALS (29 sets, daily range): BP systolic 104–159; BP diastolic 56–85; PULSE 61–82; RESP 10–26; TEMP 36.6–36.8; O2SAT 83–100
[2020-05-05] MEDS: LORazepam 0.5 mg Tablet 0.25 MG PO (04:54)
[2020-05-05 05:00] LABS: Basophils # 0.1 10^3/uL (0.0-0.1); Basophils % 1.1 %; Eosinophils # 0.3 10^3/uL (0.0-0.8); Eosinophils % 3.2 %; Hematocrit 42.2 % (37.0-47.0); Hemoglobin 13.6 g/dL (11.5-15.3); Lymphocytes # 2.8 10^3/uL (0.8-4.8); Lymphocytes % 33.4 %; Mean Corpuscular HGB Conc 32.2 g/dL (30.0-36.0); Mean Corpuscular Hemoglobin 32.2 pg (28.0-34.0); Mean Platelet Volume 9.4 fL (7.4-10.4); Monocytes # 0.7 10^3/uL (0.2-0.9); Monocytes % 7.8 %; Neutrophils # 4.55 10^3/uL (1.8-7.7); Neutrophils % 54.3 %; Nucleated Red Blood Cells % 0 %; Platelet Count 241 10^3/cmm (130-400); Red Blood Count 4.22 10^6/uL (4.1-5.3); Red Cell Distribution Width 13.7 % (12.1-15.1); White Blood Count 8.4 10^3/uL (4.0-10.0)
[2020-05-05] MEDS: levothyroxine 75 mcg Tablet PO (06:38)
--- NOTE | 2020-05-05 09:24 | P.CONIM_ITS ---
Providers/Reason For Consult Consulting Physican/Specialty*: Dr. Fregoso, cardiology Reason for Consult*: Chest pain, abnormal stress test Attending Physician: Nixon Jordan MD Primary Care Provider: Veronica Dial MD History of Present Illness History of Present Illness Ryan Sanchez is a 59 year old female with past medical history of hypertension, obesity, obstructive sleep apnea on CPAP, hypothyroidism, chronic active smoker (1 pack/day since 15 years of age), anxiety/depression presented on 03 May 2020 with complaints of chest discomfort. 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 Patient states for the past few months she has been experiencing dyspnea on exertion as well as feeling of tired and fatigued. On the day of arrival she started having retrosternal chest discomfort described as sharp and stabbing about 6/10 in intensity that was different from intermittent back pain/pain of side of her ribs bilaterally for last few days. EKG on arrival showed sinus rhythm, normal axis and LBBB. No prior EKG to compare. She underwent stress test and echocardiogram yesterday. She continues to have some heaviness in her chest on and off since admission. She denies any URI or UTI-like symptoms. Review of Systems General: Reports: 10 or more systems reviewed and unremarkable except in HPI and below Const: Reports: diaphoresis Eyes: Denies: change in vision ENMT: Denies: odynophagia Card: Reports: chest pain, lightheadedness and dyspnea on exertion; Denies: swelling of feet/ankles Resp: Reports: dyspnea, productive cough and change in phlegm color; Denies: non-productive cough GI: Reports: nausea : Denies: flank pain or difficulty voiding Musc: Denies: neck pain or back pain Skin/Breast: Denies: rash Neuro: Denies: headache(s), numbness in extremities or weakness in extremities Dennis/Lymph: Denies: easy bruising or easy bleeding Meds/Allergies Home Medications and Allergies Home Medications Medication Instructions Recorded Confirmed Last Taken Type atorvastatin 40 mg tablet 40 mg PO DAILY@0730 01/16/20 05/04/20 05/03/20 History cyclobenzaprine 5 mg tablet 5 mg PO TID PRN 01/16/20 05/04/20 Unknown History gabapentin 300 mg capsule 300 mg PO TID@0730,22 PRN 01/16/20 05/04/20 05/03/20 History levothyroxine 75 mcg capsule 75 mcg PO DAILY@72901/16/20 05/04/20 05/03/20 History sertraline 100 mg tablet 100 mg PO DAILY@72901/16/20 05/04/20 05/02/20 History lorazepam 0.5 mg tablet 0.5 mg PO DAILY PRN 01/25/20 05/04/20 Unknown History amlodipine 2.5 mg tablet 2.5 mg PO DAILY@72904/05/20 05/04/20 05/03/20 History meloxicam 15 mg tablet 15 mg PO DAILY@72904/28/20 05/04/20 05/03/20 History One-A-Day Women's 50 Plus 1 tab PO DAILY@72905/04/20 05/04/20 05/03/20 History aspirin [Aspir-81] 81 mg PO DAILY@72905/04/20 05/04/20 05/03/20 History calcium carbonate-vitamin D3 1 tab PO DAILY@72905/04/20 05/04/20 05/03/20 History [Calcium + D] cinnamon bark [Cinnamon] 500 mg PO DAILY@72905/04/20 05/04/20 05/03/20 History turmeric 400 mg PO DAILY@72905/04/20 05/04/20 05/03/20 History vitamin B complex [Super B Complex] 1 tab PO DAILY@72905/04/20 05/04/20 05/03/20 History Allergies Allergy/AdvReac Type Severity Reaction Status Date / Time No Known Allergies Allergy Verified 04/28/20 16:36 Current Medications Current Medications Generic Name Dose Route Start Last Admin Trade Name Freq PRN Reason Stop Dose Admin Enoxaparin Sodium 90 mg 05/04/20 20:45 05/04/20 21:30 Enoxaparin 100 Mg/Ml Syringe SUBCUT 90 mg Q12H JANETT Administration Isosorbide Mononitrate 30 mg 05/04/20 10:00 05/04/20 10:28 Isosorbide Mononitrate Er 30 Mg Tablet PO 30 mg DAILY JANETT Administration Levothyroxine Sodium 75 mcg 05/04/20 06:00 05/05/20 06:38 Levothyroxine 75 Mcg Tablet PO 75 mcg QAM JANETT Administration Levothyroxine Sodium 75 mcg 05/05/20 07:30 05/05/20 08:49 Levothyroxine 75 Mcg Tablet PO Not Given DAILY@0730 [facility] Lorazepam 0.25 mg 05/04/20 02:15 05/05/20 04:54 Lorazepam 0.5 Mg Tablet PO 0.25 mg BID PRN Administration ANXIETY Nitroglycerin 0.4 mg 05/04/20 09:56 05/04/20 10:31 Nitroglycerin 0.4 Mg Sublingual Tablet SUBLINGUAL 0.4 tab Q5M PRN Administration CHEST PAIN Non-Formulary Medication 1 tab 05/05/20 07:30 05/05/20 08:47 Calcium Carbonate-Vitamin D3 PO Not Given DAILY@0730 [facility] Non-Formulary Medication 1 tab 05/05/20 07:30 05/05/20 09:04 Vitamin B Complex PO Not Given DAILY@0730 [facility] PFSH Acute PFSH: Medical History Anxiety Back pain, chronic Depression Hypercholesterolemia Hypertension Hypothyroidism Osteoarthritis Urinary incontinence, mixed Surgical History H/O left wrist surgery H/O Spinal surgery ALDF and ACDF. H/O vaginal surgery Urethral sling History of 2 sections S/P colonoscopy S/P excision of lipoma Right buttocks. S/P lumpectomy, left breast S/P tonsillectomy Family History Mother Anemia Alzheimer disease Father Heart disease Hypertension Kidney disease COPD (chronic obstructive pulmonary disease) Social History Smoking and tobacco status: current every day smoker cigarettes Packs smoked per day: 0.75 [ Other cigarette details: started age 15 ] and e-cigarettes E- Cigarette Details: vaporizer device Quit status (tobacco): has tried quititng Alcohol intake: current Alcohol intake frequency: 0-2 Drinks per Day Substance/Drug Use: never Vitals/I&O/Wt Last Vital Signs Temp 97.9 F 05/05/20 07:19 Pulse 65 05/05/20 07:19 Resp 18 05/05/20 07:19 BP 133/76 05/05/20 07:19 Pulse Ox 95 05/05/20 07:19 05/04/20 05/05/20 05/05/20 22:59 06:59 14:59 Intake Total 240 / 720 Balance 240 / 720 Weight last 48 hrs Weight 200 lb Physical Exam Narrative: EXAM NARRATIVE: GENERAL: Obese woman lying in bed in no acute distress HEENT: Extraocular movement intact. Pupils equal round reactive to light. No pallor or icterus. NECK: central trachea, No JVD. No carotid bruit. CARDIOVASCULAR SYSTEM: S1-S2 regular. No S3 or S4 present. No murmur rubs or gallops. RESPIRATORY SYSTEM: Chest clear to auscultation. No wheezes rhonchi or rubs heard. No use of accessory muscles. ABDOMEN: Soft, nontender and nondistended. Normal bowel sounds present. EXTREMITIES: No cyanosis or clubbing. No edema. No signs of chronic venous insufficiency. MDS COORDINATOR: Patient is alert oriented ?3. No focal neurological deficits. Cranial nerves intact. SKIN: Normal turgor and temperature. No breakdown, rash or nail changes noted. PSYCH: Normal insight and judgment. A&P Assessment and plan (1) Chest pain: Patient continues to have intermittent episodes of chest discomfort. She has multiple CAD risk factors. -Stress test with no ischemia but fixed defect in LAD and RCA territory. She also has left bundle branch block of unclear duration, newly diagnosed systolic congestive heart failure with LVEF~35%. -Intermittent episodes of chest discomfort possibly point out towards some viability in the area. -I think she would benefit from coronary angiogram to further delineate her coronary anatomy. -This was discussed with the patient in detail risk and benefit of left heart catheterization were discussed and plan is to proceed with the procedure later today. -Case was discussed with Dr. Land as well. -Continue current medications and further changes based on findings of coronary angiogram. Status: Acute Qualifiers: Chest pain type: unspecified Qualified Code(s): R07.9 - Chest pain, unspecified (2) LBBB (left bundle branch block): Status: Acute (3) CHF (NYHA class III, ACC/AHA stage C): Status: Acute (4) Hypercholesterolemia: Status: Acute (5) Hypertension: Status: Acute Qualifiers: Hypertension type: essential hypertension Qualified Code(s): I10 - Essential (primary) hypertension Additional A&P Information Chronic active smoker: Advised extensively on smoking cessation. Family history of CAD in father Obesity Obstructive sleep apnea on CPAP Hypothyroidism Thank you for allowing me to participate in patient's care. Please feel free to call with questions or concerns Consult Attestations Medical Necessity Statement: Needs hospital stay for management of chest pain, congestive heart failure Time Spent in Patient Care: Greater than 35 minutes (>than 50% of time spent in counselling and/or direct pt care on unit) . 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
--- NOTE | 2020-05-05 09:52 | XACV_ITS ---
Exam Room: [facility] Ht: 168 cm Wt: 91 kg BSA: 2.09 m2 Gender: Female : 1960 Any Known Allergies: No known allergies Exam Priority: Routine Procedure(s): Procedure Description: Diagnostic procedure Procedure Description: Left Heart Catheterization Procedure Description: Coronary Angiography Diagnostic Cath Status: Elective Diagnostic Findings * No significant disease noted in the Left Main, LAD, Circumflex, or RCA coronary arteries. * Coronary angiography shows right dominance. Conclusions 1. Non ischemic cardiomyopathy. 2. No significant disease noted in the Left Main, LAD, Circumflex, or RCA coronary arteries. Recommendations * Guideline directed medical therapy for heart failure. Interventional RX Recommendation: medical therapy and/or counseling Diagnostic RX Recommendation: medical therapy and/or counseling Anticoagulation: Heparin Pressures Phase:Rest AO : 113 / 62 ( 80 ) @ 5:50:00 AM 128 / 59 ( 84 ) @ 5:56:00 AM 124 / 58 ( 83 ) @ 5:56:00 AM 125 / 57 ( 82 ) @ 5:56:00 AM LV : 131 / -15 / @ 5:56:00 AM 132 / -15 / @ 5:56:00 AM Valves Phase:DefaultPhase AV : 3.0 @ 12:07:01 PM AV Mean Gradient: 12.0 @ 12:07:01 PM Clinical Evaluation EBL: 5mL-10mL Procedural Details Procedure Consent Obtained. Pre-Procedure Time Out. Identified patient by full name and date of as verbalized by the patient/guarantor. Does the consent match the physician's order: Yes. Accurate & Complete Informed Consent: Yes. Inpatient/Outpatient History & Physical on Chart: Yes. If H&P is completed, is and addenduem needed: No; If yes, is the addendum complete: N/A. Visualize and Verify Site with Patient/Guarantor: N/A. Relevant Radiology Images available: Yes. Pre-op teaching completed and patient verbalized understanding. The risks, benefits, and alternatives of sedation and/or procedure were discussed by physician. The patient agrees to continue. Procedure started. [facility] Clinical Fraility Score: 3: Managing Well. Radiology Equipment Servicer Indications: LV Dysfunction. Chest Pain Symptom Assessment: Atypical Angina. Correct patient, site and procedure confirmed by cath team. Current diagnosis: Chest Pain. PERRLA. Strong, equal hand sales and in home delivery specialist bilaterally. Lungs clear x 5 lobes. Current Diagnosis : Chest Pain. IV Site on Arrival: 20 gauge in the left anticubital. IV Fluids: 0.9% NaCl at KVO. 0 mL infused prior to laborer brush clearing. Pre Procedural Pulses: bilateral radial was 3+. Oxygen started at 2liters/min via nasal canula. bilateral groins was prepped with chloroprep then draped in the usual sterile fashion. right radial was prepped with chloroprep then draped in the usual sterile fashion. Physician arrived. Equipment: 6F - Radial. Cardiac Cath Pack. ACIST Manifold Kit Model BT 2000. Heparinized Saline (2 units/mL), 1000 mL bag. Baseline sample Acquired. HR: 68 BPM. Physician scrubbed in. Immediate Pre-Procedure Time Out. Correct Patient: Yes; Correct Procedure: Yes; Correct Site: Yes; Correct Patient Position: Yes; Correct Supplies: Yes; Dried Flammable Prep: Yes; Blood Products Available: N/A;. Lidocaine 1% infiltrated to the right radial. Arterial access obtained. A 5 lithuanian TIG catheter in over wire. Multiple views taken of left coronary artery. Catheter redirected to the RCA. Multiple views taken of right coronary artery. EDP Sample taken: LV 131/-16,6; HR: 76 BPM; SpO2: 95%. Pullback taken: LV 132/-16,6; AO 128/59(84); Mean: 12mmHg, Peak to Peak: 3mmHg, SEP: 20sec/min; HR: 75 BPM; SpO2: 95%. Catheter removed over the exchange wire. Physician scrubbed out. A TR Band was successful obtaining hemostatsis at the Right Radial artery insertion site. TR band placed. Hemostasis obtained. Post Procedure: Pulses reassessed and unchanged. PERRLA. Strong, equal hand sales and in home delivery specialist bilaterally. No VTE prophylaxis required. Medication's Wasted: Lidocaine 1% = 18 mL. Medication's Wasted: Nitro = 49.8 mg. Medication's Wasted: Heparin = 1000 units. Total IV fluids: 50 mL. Contrast type used: Omnipaque 300 mgI/mL, 500 mL bottle. Complications: none. Post-op diagnosis: non obstructive CAD. Estimated blood loss: 5mL-10mL. Procedure completed. Patient transferred by wheelchair to ICU. Vital chart was stopped. Access Site Site: Right Radial artery Sheath Size: 6 Fr Hemostasis Method: TR Band Hemostasis Success: Successful Procedure Medications Start: 11:45 AM Stop: 11:45 AM Medication: Versed Amount: 1 mg Route: I.V. Start: 11:45 AM Stop: 11:45 AM Medication: Fentanyl Amount: 50 mcg Route: I.V. Start: 11:47 AM Stop: 11:47 AM Medication: Versed Amount: 1 mg Route: I.V. Start: 11:47 AM Stop: 11:47 AM Medication: Fentanyl Amount: 50 mcg Route: I.V. Start: 11:50 AM Stop: 11:50 AM Medication: Heparin Amount: 5000 units Route: I.V. I, the attending physician, have reviewed and verified all procedure medications. Yes, all medications given per verbal order History/Risk Factors Hypertension: Yes Dyslipidemia: Yes Peripheral Arterial Disease (PAD): No Myocardial Infarction (UT): No Obesity: Yes Renal Disease: No Tobacco Use: Current/Recent(w/in 1 year) Prior Interventions PCI: No CABG: No Valve Surgery: No Report Signatures Finalized by Abdelrahman Land MD on 05/05/2020 12:36 PM
[2020-05-05] MEDS: diphenhydrAMINE 50 mg Capsule PO (10:55)
[2020-05-05] MEDS: aspirin 81 mg Chew Tablet 324 MG PO (10:55)
[2020-05-05] MEDS: sodium chloride 0.9% 1,000 ML 50 ML IV (10:56)
[2020-05-05 11:10] LABS: Alanine Aminotransferase 17 U/L (0-33); Albumin Level 4.1 g/dL (3.5-5.2); Alkaline Phosphatase 72 IU/L (35-105); Anion Gap 15.2 (5-19); Aspartate Amino Transferase 22 U/L (0-32); Blood Urea Nitrogen 17 mg/dL (6-20); Calcium 9.5 mg/dL (8.5-10.5); Carbon Dioxide 25 mmol/L (22-29); Chloride 104 mmol/L (98-107); Globulin 2.9 g/dL (1.3-4.6); Glomerular Filtration Rate 73.4 mL/min (90-130); Glucose 95 mg/dL (65-115); NT Pro B Type Natriuretic Pept 115 pg/mL (0-125); Osmolality Calculated 291 mOsm/kg (285-295); Potassium 4.2 mmol/L (3.5-5.1); Sodium 140 mmol/L (136-145); Total Bilirubin 0.5 mg/dL (0.15-1.2)
--- NOTE | 2020-05-05 11:41 | W.PM.OPSUD ---
Surgery/Procedure H&P Update DATE OF PROCEDURE: May 05, 2020 DATE H&P PERFORMED: 05/05/20 H&P UPDATE INFORMATION: I have reviewed H&P completed within last 30 days, I have examined patient prior to procedure and No changes to prior documentation PREOP DIAGNOSIS: Chest pain/ LV dysfunction PRIMARY INDICATION FOR PROCEDURE: Chest pain/LV dysfunction PLANNED PROCEDURE: Operation Date: 05/05/20 11:30 Proposed Procedures p Cardiac Catheterization(Not Applicable) - Abdelrahman Land M.D PATIENT REASSESSED PRIOR TO SEDATION, WITH NO CHANGE NOTED: No PHYSICAL EXAM: alert, oriented x 3 and clear to auscultation bilaterally AIRWAY EVAL/ANESTHESIA PLAN: ASA III, Risks, benefits & alternatives of sedation and/or procedure discussed and Patient agrees to continue as planned
--- NOTE | 2020-05-05 14:57 | PM.PN ---
Subjective Subjective: Interval history: Patient was complaining of substernal chest pain this morning. Her other vitals and labs have been reviewed. Medications: Reviewed: Yes Vitals/I&O/Wt Last Vital Signs Temp 98.2 F 05/05/20 14:53 Pulse 76 05/05/20 14:53 Resp 19 H 05/05/20 14:53 BP 138/65 05/05/20 14:53 Pulse Ox 84 L 05/05/20 14:53 05/04/20 05/05/20 05/05/20 22:59 06:59 14:59 Intake Total 240 / 720 200 / 200 Balance 240 / 720 200 / 200 Weight last 48 hrs Weight 90.718 kg Physical Exam Const: COMMON NORMALS: patient oriented x3 HENMT: COMMON NORMALS: normocephalic, atraumatic, hearing grossly normal bilaterally and external ears normal HEAD & SCALP: normocephalic and atraumatic EXTERNAL EAR: Yes external ears normal Eye: COMMON NORMALS: no scleral icterus GENERAL EYE: appearance normal, both eyes and all related structures Chest: COMMONS NORMALS: normal inspection of the chest and normal palpation of entire chest wall CHEST: Yes Symmetrical chest wall rise Resp: COMMON NORMALS: normal respiratory effort, No retractions, No use of accessory muscles and clear to auscultation bilaterally EFFORT & INSPECTION: Yes symmetric chest movement AUSCULTATION: clear to auscultation bilaterally Cardio: COMMON NORMALS: regular rate, regular rhythm, S1 normal heart sound present, S2 normal heart sound present, No gallops present (Cardio), No murmurs present (Cardio), No rub (Cardio) and Peripheral pulses 2+ throughout RATE: regular rate RHYTHM: regular rhythm HEART SOUNDS: S1 normal heart sound present and S2 normal heart sound present PERIPHERAL PULSES: Peripheral pulses 2+ throughout GI: COMMON NORMALS: Normal to inspection, nondistended, normoactive bowel sounds present, Soft to palpation, non-tender, No hepatosplenomegaly present and no masses AUSCULTATION: Yes normoactive bowel sounds PALPATION: Yes Soft to palpation and Yes No hepatosplenomegaly present RECTAL EXAM: deferred Extremity: COMMON NORMALS: no clubbing, cyanosis or edema and no pedal edema Neuro: COMMON NORMALS: patient oriented x3 Data : 05/05/20 04:50 05/05/20 04:50 A&P Assessment and plan (1) Unstable angina: Patient clinical findings and presentation is consistent with unstable angina. 2D echo:1. Mildly increased left ventricular cavity size. Moderately decreased left ventricular systolic function. Left ventricular ejection fraction is estimated at 35 %. There is hypokinesis of basal to mid anteroseptal, basal to mid inferoseptal and apical septal pulido. Normal diastolic function. 2. Normal right ventricular size and systolic function. 3. No significant valvular abnormality. Nuclear stress test: Large area of patchy reduced tracer uptake with fixed perfusion defect noted in basal to distal anterior wall suggestive of old myocardial infarction versus scarring in the LAD territory. Large area of fixed perfusion defect noted in basal inferior and inferio-septal wall suggestive of old myocardial infarction versus scarring in the RCA territory. No ischemia noted. Aspirin 81 mg p.o. daily Plavix 75 mg p.o. daily Lovenox 90 mg every 12 hours daily Lipitor 40 mg p.o. daily IMDUR 15 mg p.o. daily M.Succinate: 12.5 mg po daily Sublingual nitro Cardiac Cath Cardiology consult appreciated Status: Acute (2) Hypertension: Status: Acute Qualifiers: Hypertension type: essential hypertension Qualified Code(s): I10 - Essential (primary) hypertension (3) Hypothyroidism: Continue levothyroxine 75 mcg p.o. day Status: Acute (4) Hypercholesterolemia: Status: Acute Additional A&P Information CODE STATUS: Full code DVT prophylaxsis: On Lovenox Attestations Medical Necessity Statement*: Patient needs to be in hospital for management of unstable angina. Coding Level of Care Code Acute Front End Manager for [facility] Fwd Diagnoses Unstable angina I20.0 Hypertension I10 Hypertension type: essential hypertension Hypothyroidism E03.9 Hypercholesterolemia E78.00
[2020-05-05 17:15] LABS: Chol HDL Ratio 2.65 mg/dL (0.0-4.40); Cholesterol 164 mg/dL (0-200); Estmated Average Glucose 117; HDL Cholesterol 62 mg/dL (60-100); Hemoglobin A1C 5.7 % (4.0-6.0); LDL Cholesterol Calculated 84 mg/dL (50-129); LDL HDL Ratio 1.35 RATIO (0.00-3.22); Triglycerides 91 mg/dL (0-150)
[2020-05-05] MEDS: metoprolol succinate ER (24 HR) 25 mg Tablet 12.5 MG PO (17:47)
[2020-05-05] MEDS: acetaminophen 325 mg Tablet 650 MG PO (20:25)
[2020-05-05] MEDS: oxyCODONE 5 mg IR Tab/Cap PO (21:25)
[2020-05-05] MEDS: temazepam 15 mg Capsule PO (22:36)
[2020-05-06] VITALS (13 sets, daily range): BP systolic 126–163; BP diastolic 68–85; PULSE 53–71; RESP 12–33; TEMP 36.8–36.9; O2SAT 80–100
[2020-05-06 04:40] LABS: Basophils # 0.1 10^3/uL (0.0-0.1); Basophils % 1.1 %; Eosinophils # 0.3 10^3/uL (0.0-0.8); Eosinophils % 3.7 %; Lymphocytes # 2.3 10^3/uL (0.8-4.8); Lymphocytes % 32.4 %; Mean Corpuscular HGB Conc 31.8 g/dL (30.0-36.0); Mean Corpuscular Hemoglobin 31.9 pg (28.0-34.0); Mean Corpuscular Volume 100.2 fL (81-99); Mean Platelet Volume 10.5 fL (7.4-10.4); Monocytes # 0.6 10^3/uL (0.2-0.9); Monocytes % 7.9 %; Neutrophils # 3.86 10^3/uL (1.8-7.7); Neutrophils % 54.6 %; Nucleated Red Blood Cells % 0 %; Platelet Count 247 10^3/cmm (130-400); Red Blood Count 4.39 10^6/uL (4.1-5.3); Red Cell Distribution Width 13.4 % (12.1-15.1); White Blood Count 7.1 10^3/uL (4.0-10.0)
[2020-05-06 05:00] LABS: Alanine Aminotransferase 17 U/L (0-33); Albumin Level 3.9 g/dL (3.5-5.2); Alkaline Phosphatase 67 IU/L (35-105); Aspartate Amino Transferase 17 U/L (0-32); Blood Urea Nitrogen 15 mg/dL (6-20); Calcium 9.2 mg/dL (8.5-10.5); Carbon Dioxide 26 mmol/L (22-29); Chloride 104 mmol/L (98-107); Creatinine Clr Calc Pharmacy 101.9461; Glomerular Filtration Rate 85.6 mL/min (90-130); Glucose 98 mg/dL (65-115); Osmolality Calculated 289 mOsm/kg (285-295); Sodium 139 mmol/L (136-145); Total Bilirubin 0.5 mg/dL (0.15-1.2); Total Protein 6.9 g/dL (6.6-8.7)
[2020-05-06] MEDS: pantoprazole DR 40 mg Tablet PO (08:08)
[2020-05-06] MEDS: sertraline 100 mg Tablet PO (08:08)
[2020-05-06] MEDS: isosorbide mononitrate ER 30 mg Tablet 15 MG PO (08:08)
[2020-05-06] MEDS: levothyroxine 75 mcg Tablet PO (08:08)
[2020-05-06] MEDS: atorvastatin 40 mg Tablet PO (08:08)
[2020-05-06] MEDS: metoprolol succinate ER (24 HR) 25 mg Tablet 12.5 MG PO (08:09)
--- NOTE | 2020-05-06 09:30 | P.PN_ITS ---
Subjective Subjective: Interval history: She is upset with her daughter this morning. No chest pain or SOB. She underwent cardiac cathetarization yesterday with Dr. Land. Medications: Reviewed: Yes Medication Review Details: Current Medications Acetaminophen (Acetaminophen 325 Mg Tablet) 650 mg PO Q6H PRN PRN Reason: MILD PAIN Last Admin: 05/05/20 20:25 Dose: 650 mg Documented by: Al Hydrox/Mg Hydrox/Simethicone (Hfcc-Yiu-Yqnjlaphr-Merrick 30 Ml Udc) 30 ml PO Q15M PRN PRN Reason: INDIGESTION Alprazolam (Alprazolam 0.25 Mg Tablet) 0.25 mg PO TID PRN PRN Reason: ANXIETY Atorvastatin Calcium (Atorvastatin 40 Mg Tablet) 40 mg PO DAILY@729 [facility] Last Admin: 05/06/20 08:08 Dose: 40 mg Documented by: Atropine Sulfate (Atropine 1 Mg/Ml Sdv 1 Ml) 0.5 mg IVP PRN PRN PRN Reason: Symptomatic bradycardia Cyclobenzaprine HCl (Cyclobenzaprine 10 Mg Tablet) 5 mg PO TID PRN PRN Reason: muscle spasms Fentanyl (Fentanyl 50 Mcg/Ml Inj 2ml) 50 mcg IVP PRN PRN PRN Reason: Prior to sheath removal Gabapentin (Gabapentin 300 Mg Capsule) 300 mg PO TID@0730,, PRN PRN Reason: Pain Guaifenesin/Dextromethorphan (Guaifenesin-Dextromethorphan Udc 10 Ml) 10 ml PO Q4H PRN PRN Reason: COUGH Isosorbide Mononitrate (Isosorbide Mononitrate Er 30 Mg Tablet) 15 mg PO DAILY [facility] Last Admin: 05/06/20 08:08 Dose: 15 mg Documented by: Levothyroxine Sodium (Levothyroxine 75 Mcg Tablet) 75 mcg PO QAM [facility] Last Admin: 05/05/20 06:38 Dose: 75 mcg Documented by: Levothyroxine Sodium (Levothyroxine 75 Mcg Tablet) 75 mcg PO DAILY@0730 [facility] Last Admin: 05/06/20 08:08 Dose: 75 mcg Documented by: Lorazepam (Lorazepam 0.5 Mg Tablet) 0.25 mg PO BID PRN PRN Reason: ANXIETY Last Admin: 05/05/20 04:54 Dose: 0.25 mg Documented by: Lorazepam (Lorazepam 0.5 Mg Tablet) 0.5 mg PO DAILY PRN PRN Reason: unknown Magnesium Hydroxide (Magnesium Hydroxide 30 Ml Udc) 30 ml PO DAILY PRN PRN Reason: CONSTIPATION Metoprolol Succinate (Metoprolol Succinate Er (24 Hr) 25 Mg Tablet) 12.5 mg PO DAILY [facility] Last Admin: 05/06/20 08:09 Dose: 12.5 mg Documented by: Naloxone HCl (Naloxone 0.4 Mg/Ml Sdv) 0.1 mg IVP Q2M PRN PRN Reason: RESPIRATORY RATE < 8/MIN Nitroglycerin (Nitroglycerin 0.4 Mg Sublingual Tablet) 0.4 mg SUBLINGUAL Q5M PRN PRN Reason: CHEST PAIN Last Admin: 05/04/20 10:31 Dose: 0.4 tab Documented by: Nitroglycerin (Nitroglycerin 0.4 Mg Sublingual Tablet) 0.4 mg SUBLINGUAL Q5M PRN PRN Reason: CHEST PAIN Non-Formulary Medication (Calcium Carbonate-Vitamin D3) 1 tab PO DAILY@729 [facility] Last Admin: 05/06/20 08:23 Dose: Not Given Documented by: Non-Formulary Medication (Vitamin B Complex) 1 tab PO DAILY@729 [facility] Last Admin: 05/06/20 08:23 Dose: Not Given Documented by: Ondansetron HCl (Ondansetron 2 Mg/Ml Sdv 2 Ml) 4 mg IVP Q2M PRN PRN Reason: NAUSEA Oxycodone HCl (Oxycodone 5 Mg Ir Tab/Cap) 5 mg PO Q6H PRN PRN Reason: MODERATE PAIN Last Admin: 05/05/20 21:25 Dose: 5 mg Documented by: Pantoprazole Sodium (Pantoprazole Dr 40 Mg Tablet) 40 mg PO DAILY [facility] Last Admin: 05/06/20 08:08 Dose: 40 mg Documented by: Sertraline HCl (Sertraline 100 Mg Tablet) 100 mg PO DAILY@729 [facility] Last Admin: 05/06/20 08:08 Dose: 100 mg Documented by: Temazepam (Temazepam 15 Mg Capsule) 15 mg PO BEDTIME PRN PRN Reason: INSOMNIA Last Admin: 05/05/20 22:36 Dose: 15 mg Documented by: Vitals/I&O/Wt Last Vital Signs Temp 98.4 F 05/06/20 04:00 Pulse 70 05/06/20 09:00 Resp 24 H 05/06/20 09:00 BP 158/75 05/06/20 07:00 Pulse Ox 80 L 05/06/20 09:00 05/05/20 05/06/20 05/06/20 22:59 06:59 14:59 Intake Total 1450 / 1650 1800 / 3450 300 / 300 Output Total 1250 / 1250 1000 / 2250 Balance 200 / 400 800 / 1200 300 / 300 Physical Exam Narrative: EXAM NARRATIVE: GENERAL: Obese woman lying in bed in no acute distress HEENT: Extraocular movement intact. Pupils equal round reactive to light. No pallor or icterus. NECK: central trachea, No JVD. No carotid bruit. CARDIOVASCULAR SYSTEM: S1-S2 regular. No S3 or S4 present. No murmur rubs or gallops. RESPIRATORY SYSTEM: Chest clear to auscultation. No wheezes rhonchi or rubs heard. No use of accessory muscles. ABDOMEN: Soft, nontender and nondistended. Normal bowel sounds present. EXTREMITIES: No cyanosis or clubbing. No edema. No signs of chronic venous insufficiency. right wrist no hematoma or bruising. 2+ radial. TILE HELPER: Patient is alert oriented ?3. No focal neurological deficits. SKIN: Normal turgor and temperature. No breakdown, rash or nail changes noted. PSYCH: Normal insight and judgment. tearful and depressed Data : 05/06/20 03:01 05/06/20 03:01 Attestation for Other Data: I personally reviewed and interpreted the following: Other data: Coronary angiogram (05/05/20) Diagnostic Findings * No significant disease noted in the Left Main, LAD, Circumflex, or RCA coronary arteries. * Coronary angiography shows right dominance. Conclusions 1. Non ischemic cardiomyopathy. 2. No significant disease noted in the Left Main, LAD, Circumflex, or RCA coronary arteries. A&P Assessment and plan (1) Chest pain: Patient continues to have intermittent episodes of chest discomfort. She has multiple CAD risk factors. -Stress test with no ischemia but fixed defect in LAD and RCA territory. She also has left bundle branch block of unclear duration, newly diagnosed systolic congestive heart failure with LVEF~35%. -Intermittent episodes of chest discomfort possibly point out towards some viability in the area. -I think she would benefit from coronary angiogram to further delineate her coronary anatomy. -This was discussed with the patient in detail risk and benefit of left heart catheterization were discussed and plan is to proceed with the procedure later today. -Case was discussed with Dr. Land as well. -Continue current medications and further changes based on findings of coronary angiogram. 05/06/20 Non ischemic cardiomyopathy. Normal coronaries with LVEDP of 6. -chest pain not anginal in etiology. Emperically treat with protonix. Status: Acute Qualifiers: Chest pain type: unspecified Qualified Code(s): R07.9 - Chest pain, unspecified (2) CHF (NYHA class III, ACC/AHA stage C): newly diagnosed non ischemic cardiomyoapthy. -start on entresto and continue low dose metoprolol. -consider satrting on low dose aldactone basded on labs in 1 week. -stable to be discharged home today. -f/u in 1 week with Ms. Ruffin in 1 week. -BMP in 1 week -f/u with me in 4-6 week Status: Acute (3) LBBB (left bundle branch block): Status: Acute (4) Hypercholesterolemia: Status: Acute (5) Hypertension: Status: Acute Qualifiers: Hypertension type: essential hypertension Qualified Code(s): I10 - Essential (primary) hypertension Additional A&P Information Chronic active smoker: Advised extensively on smoking cessation. Family history of CAD in father Obesity Obstructive sleep apnea on CPAP Hypothyroidism Thank you for allowing me to participate in patient's care. Please feel free to call with questions or concerns Attestations Medical Necessity Statement*: stable to be discharged home. Time Spent in Patient Care: Greater than 35 minutes (>than 50% of time spent in counselling and/or direct pt care on unit) . Coding Level of Care Code Acute Jet Mechanic for Chg Fwd Diagnoses Chest pain R07.9 Chest pain type: unspecified CHF (NYHA class III, ACC/AHA stage C) I50.9 LBBB (left bundle branch block) I44.7 Hypercholesterolemia E78.00 Hypertension I10 Hypertension type: essential hypertension
--- NOTE | 2020-05-06 11:38 | PM.DCS ---
Discharge Providers Date of Admission: 05/04/20 13:41 Date of Discharge: May 06, 2020 Attending Provider at Admission: Salvatore Geronimo MD Attending Provider at Discharge: Nixon Jordan MD Primary Care Provider: Veronica Dial MD Diagnoses at Discharge Discharge Diagnosis (1) Chest pain: Status: Resolved Qualifiers: Chest pain type: unspecified Qualified Code(s): R07.9 - Chest pain, unspecified (2) LBBB (left bundle branch block): (3) CHF (NYHA class III, ACC/AHA stage C): Status: Chronic Permanent problem details: LVEF 35% (4) Hypercholesterolemia: (5) Hypertension: Qualifiers: Hypertension type: essential hypertension Qualified Code(s): I10 - Essential (primary) hypertension Reason for Visit Reason for Visit: CHEST PAIN, SOB, MUSCLE ACHES Hospital Course Hospital Course 59 year old female who carries history of hypothyroidism, depression/anxiety presented today with chief complaint of chest discomfort. 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 She experienced diaphoresis with mild exertion however denied nausea, vomiting, diarrhea orthopnea and PND. She is describing her chest discomfort as constant which gets worse on movement. Diagnostics in the ER revealed normal CBC, BMP hemodynamics, troponin 6x2 Covid antigen negative, EKG showed new left bundle branch block, patient was chest pain-free at the time of my evaluation She is an active smoker smokes half pack to 1 pack a day, decision was made to admit her and do a stress test. She was admitted for the management of chest pain, during the hospital stay Patient continued to have intermittent episodes of chest discomfort. She had multiple CAD risk factors.and hence underwent Stress test with no ischemia but fixed defect in LAD and RCA territory. She also has left bundle branch block of unclear duration, newly diagnosed systolic congestive heart failure with LVEF~35%. Intermittent episodes of chest discomfort possibly point out towards some viability in the area.Based on that cardiology was consulted and she underwent CAG and was diagnosed with Non ischemic cardiomyopathy. Normal coronaries with LVEDP of 6. chest pain not anginal in etiology. She was Emperically started on protonix as well as continued on imdur 15 .CHF (NYHA class III, ACC/AHA stage C): newly diagnosed non ischemic cardiomyoapthy. She was started on entresto and continued low dose metoprolol as well as . Cardiology will consider starting on low dose aldactone basded on labs in 1 week.She responded well to the above medical management and was discharged in stable condition to follow cardiology as outpatient. Physical Exam Const: COMMON NORMALS: patient oriented x3 HENMT: COMMON NORMALS: normocephalic, atraumatic, hearing grossly normal bilaterally and external ears normal HEAD & SCALP: normocephalic and atraumatic EXTERNAL EAR: Yes external ears normal Eye: COMMON NORMALS: no scleral icterus GENERAL EYE: appearance normal, both eyes and all related structures Chest: COMMONS NORMALS: normal inspection of the chest and normal palpation of entire chest wall CHEST: Yes Symmetrical chest wall rise Resp: COMMON NORMALS: normal respiratory effort, No retractions, No use of accessory muscles and clear to auscultation bilaterally EFFORT & INSPECTION: Yes symmetric chest movement AUSCULTATION: clear to auscultation bilaterally Cardio: COMMON NORMALS: regular rate, regular rhythm, S1 normal heart sound present, S2 normal heart sound present, No gallops present (Cardio), No murmurs present (Cardio), No rub (Cardio) and Peripheral pulses 2+ throughout RATE: regular rate RHYTHM: regular rhythm HEART SOUNDS: S1 normal heart sound present and S2 normal heart sound present PERIPHERAL PULSES: Peripheral pulses 2+ throughout GI: COMMON NORMALS: Normal to inspection, nondistended, normoactive bowel sounds present, Soft to palpation, non-tender, No hepatosplenomegaly present and no masses AUSCULTATION: Yes normoactive bowel sounds PALPATION: Yes Soft to palpation and Yes No hepatosplenomegaly present RECTAL EXAM: deferred Extremity: COMMON NORMALS: no clubbing, cyanosis or edema and no pedal edema Neuro: COMMON NORMALS: patient oriented x3 Discharge Data Data Completed and Pending: Completed Studies During Hospitalization Category Date Time Status CT chest w con* [id number] Urgent Cat Scan 05/03/20 18:39 Completed BUSINESS CONTROLLER request for service Urgent Exams 05/05/20 09:52 Completed Sestamibi Stress Test Request Routi ne Exams 05/04/20 07:10 Completed XR chest 1V bruno ble [id number] Stat Exams 05/03/20 16:06 Completed NM omega perf SPECT r/s* [id number] Routin e Nuc Med 05/04/20 02:12 Completed CV echo complete* [id number] Routine Ultrasound 05/04/20 02:12 Completed Pending at discharge Category Date Time Status Sestamibi Stress Test Request Routi ne Exams 05/05/20 06:00 Stop Req Complete Blood Co unt w/Auto AM LABS Lab 05/07/20 04:00 Ordered Comprehensive Met abolic Panel AM LA BS Lab 05/07/20 04:00 Ordered Labs from last 24 hours 05/06/20 05/06/20 05/05/20 03:01 03:01 04:50 WBC 7.1 RBC 4.39 Hgb 14.0 Hct 44.0 MCV 100.2 H MCH 31.9 MCHC 31.8 RDW 13.4 Plt Count 247 MPV 10.5 H Neut % (Auto) 54.6 Lymph % (Auto) 32.4 [place] % (Auto) 7.9 Eos % (Auto) 3.7 Baso % (Auto) 1.1 Neut # (Auto) 3.86 Lymph # (Auto) 2.3 [place] # (Auto) 0.6 Eos # (Auto) 0.3 Baso # (Auto) 0.1 Nucleated RBC % (a uto) 0 Nucleated RBCs # 0.0 Sodium 139 Potassium 4.0 Chloride 104 Carbon Dioxide 26 Anion Gap 13.0 BUN 15 Creatinine 0.7 GFR Calculation 85.6 L Glucose 98 Estimat Average Gl ucose Hemoglobin A1c Calculated Osmolal ity 289 Calcium 9.2 Total Bilirubin 0.5 AST 17 ALT 17 Alkaline Phosphata se 67 Total Protein 6.9 Albumin 3.9 Globulin 3.0 Triglycerides 91 Cholesterol 164 LDL Cholesterol, C alc 84 HDL Cholesterol 62 LDL/HDL Ratio 1.35 Cholesterol/HDL Ra nai 2.65 05/05/20 05/05/20 04:50 04:50 WBC RBC Hgb Hct MCV MCH MCHC RDW Plt Count MPV Neut % (Auto) Lymph % (Auto) [place] % (Auto) Eos % (Auto) Baso % (Auto) Neut # (Auto) Lymph # (Auto) [place] # (Auto) Eos # (Auto) Baso # (Auto) Nucleated RBC % (a uto) Nucleated RBCs # Sodium Potassium Chloride Carbon Dioxide Anion Gap BUN Creatinine GFR Calculation 73.4 L Glucose Estimat Average Gl ucose 117 Hemoglobin A1c 5.7 Calculated Osmolal ity Calcium Total Bilirubin AST ALT Alkaline Phosphata se Total Protein Albumin Globulin Triglycerides Cholesterol LDL Cholesterol, C alc HDL Cholesterol LDL/HDL Ratio Cholesterol/HDL Ra nai Vitals: Last Vital Signs Temp 98.4 F 05/06/20 04:00 Pulse 65 05/06/20 11:00 Resp 15 05/06/20 11:00 BP 158/75 05/06/20 07:00 Pulse Ox 96 05/06/20 11:00 Discharge Plan Discharge Patient Disposition: Home Condition: Stable Prescriptions: New Entresto 24-26 mg tablet 1 tab PO BID Qty: 60 RF: 0 Protonix 20 mg tablet,delayed release (DR/EC) 20 mg PO DAILY Qty: 30 RF: 0 Continued sertraline 100 mg tablet 100 mg PO DAILY@729 RF: 0 levothyroxine 75 mcg capsule 75 mcg PO DAILY@729 RF: 0 gabapentin 300 mg capsule 300 mg PO TID@729,, PRN (Reason: Pain) RF: 0 atorvastatin 40 mg tablet 40 mg PO DAILY@729 RF: 0 cyclobenzaprine 5 mg tablet 5 mg PO TID PRN (Reason: muscle spasms) RF: 0 lorazepam 0.5 mg tablet 0.5 mg PO DAILY PRN (Reason: unknown) RF: 0 meloxicam [Mobic] 15 mg tablet 15 mg PO DAILY@729 RF: 0 calcium carbonate-vitamin D3 600 mg(1,500mg) -200 unit Tablet 1 tab PO DAILY@729 RF: 0 aspirin 81 mg Tablet,Delayed Release (Dr/Ec) 81 mg PO DAILY@729 RF: 0 vitamin B complex Tablet 1 tab PO DAILY@729 RF: 0 Cinnamon 500 mg Capsule 500 mg PO DAILY@729 RF: 0 turmeric 400 mg Capsule 400 mg PO DAILY@729 RF: 0 One-A-Day Women's 50 Plus 1 tab PO DAILY@729 RF: 0 Discontinued amlodipine 2.5 mg tablet 2.5 mg PO DAILY@0730 RF: 0 No Action isosorbide mononitrate 20 mg tablet 20 mg PO BID Qty: 60 RF: 2 metoprolol succinate 25 mg tablet extended release 24 hr 12.5 mg PO DAILY Qty: 30 RF: 3 spironolactone 25 mg tablet 12.5 mg PO DAILY Qty: 30 RF: 3 Discharge Orders: Discharge Order (Routine); Ordered 05/06/20 Ordered By: Nixon Jordan Referrals: Kylee Ruffin FNP [Nurse Practitioner] - 1 week (please call [phone] to make a one week followup appt with Kylee Ruffin) Roxy Fregoso MD [Physician] - 1 month (please call [phone] to make a one month followup appt with Dr Fregoso) Discharge Diet: Low Salt Discharge Activity: Resume usual activity Patient Instructions: Metoprolol (By mouth), Isosorbide Mononitrate (By mouth), Pantoprazole (By mouth), Left Heart Catheterization (DC), Right Heart Catheterization (DC), Low Sodium Diet (DC) Discharge Attestations Time Spent in Discharge Care*: less than 30 min Specific Discharge Activities: educating patient, educating and/or supporting family/caregiver, discussing with pcp/other providers, discussing with nurse case management/social workers/dc planners, documenting/other paperwork and evaluating patient/reviewing data Status at Discharge: Cognitive status at discharge: cognitively intact, Behavioral status at discharge: cooperative, Functional status at discharge: independent ambulation Overall status at discharge: patient is back to baseline Quality Metrics Clinical Quality Measures During this hospital stay, did patient experience: None Coding Level of Care Code Acute 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
--- NOTE | 2020-05-07 18:03 | PC.RESP ---
Smoking Cessation information sent to patient.
== END 2020-05-06 12:45 | disposition home or self-care (01) | DRG 287 ==
LOC: ER 16:05 → MEDSURG 22:07 → ICU 05-05 22:50
PROVIDERS: Internal Medicine; Internal Medicine Cardiovascular Disease; Admitting Provider Internal Medicine; Emergency Provider Emergency Medicine; PCP Internal Medicine; Visit Provider Internal Medicine
PROC: 4A023N7 Measurement of Cardiac Sampling and Pressure, Left Heart, Percutaneous Approach (ICD-10-PCS; principal; 2020-05-05 11:30)
DX: I25.110 Atherosclerotic heart disease of native coronary artery with unstable angina pectoris (principal); I11.0 Hypertensive heart disease with heart failure; I44.7 Left bundle-branch block, unspecified; I42.8 Other cardiomyopathies; G47.33 Obstructive sleep apnea (adult) (pediatric); F17.210 Nicotine dependence, cigarettes, uncomplicated; E78.00 Pure hypercholesterolemia, unspecified; E66.9 Obesity, unspecified; Z68.30 Body mass index [BMI] 30.0-30.9, adult; E03.9 Hypothyroidism, unspecified; I50.9 Heart failure, unspecified; F41.8 Other specified anxiety disorders; G89.29 Other chronic pain; M54.9 Dorsalgia, unspecified; M19.90 Unspecified osteoarthritis, unspecified site; Z82.49 Family history of ischemic heart disease and other diseases of the circulatory system
CPT/HCPCS: 36415; 71045; 71260; 78452; 80053; 80061; 83036; 83735; 83880; 84443; 84484; 85025; 85378; 87426; 87635; 93005; 93017; 93306; 93452; 96372; 99285; A9500; C1769; C1887; C1894; G0378; J1170; J1644; J1650; J2250; J2785; J3010; J3490; J7030; Q0163; Q9967

== ENCOUNTER → 2020-05-14 12:15 | Outpatient (BNVA) | payer SELFPAY | PROVIDERS: PCP Internal Medicine; Visit Provider Nurse Practitioner Family | DX: I50.9 Heart failure, unspecified (principal); R07.9 Chest pain, unspecified | CPT/HCPCS: 80048 ==

== ENCOUNTER 2020-05-22 17:02 | Emergency (ER) | payer SELFPAY ==
[2020-05-22 17:06] VITALS: PULSE 73; RESP 18; TEMP 37.2; O2SAT 97; BMI 29.5
--- NOTE | 2020-05-22 17:35 | ED_ITS ---
HPI - Animal Bite General: Chief Complaint: Animal Bite Stated Complaint: animal bite, right arm, known animal Time Seen by Provider: 05/22/20 17:34 History of Present Illness: HPI narrative: Patient is a 59-year-old female comes to the ED with dog bite possibly getting infected. Patient says on May 20 she was getting a stick away from her dog and it bit at her right arm. Dog is fully vaccinated including rabies vaccination. Patient is up-to-date on all her shots and had tetanus shot last year. The bite campbell already have scabs forming over them but she is concerned because they are increasingly tender and the skin is red around them and warm. She was concerned that maybe there started to get infected. She denies any fever, chills or any other symptoms. Associated symptoms: Deny chills, fever(s) or headache(s) Review of Systems Const: Denies: fever(s), chills or fatigue Eyes: Denies: change in vision or eye discomfort ENMT: Denies: throat pain, odynophagia, nasal discharge or nasal congestion Card: Denies: chest pain, palpitations, edema, swelling of feet/ankles, dyspnea on exertion or orthopnea Resp: Denies: dyspnea, productive cough or non-productive cough GI: Denies: abdominal pain, nausea, vomiting, diarrhea, constipation or hematochezia : Denies: flank pain, dysuria or hematuria Musc: Denies: neck pain, back pain or extremity swelling Skin/Breast: Reports: new lesions (Multiple dog bite puncture wounds on right arm.); Denies: rash Neuro: Denies: headache(s), numbness in extremities or weakness in extremities [facility] ED PFSH: Medical History Anxiety Back pain, chronic Bronchitis Chest pain CHF (NYHA class III, ACC/AHA stage C) LVEF 35% Depression Hypercholesterolemia Hypertension Hypothyroidism LBBB (left bundle branch block) Osteoarthritis Unstable angina Urinary incontinence, mixed Surgical History H/O left wrist surgery H/O Spinal surgery ALDF and ACDF. H/O vaginal surgery Urethral sling History of 2 sections S/P colonoscopy S/P excision of lipoma Right buttocks. S/P lumpectomy, left breast S/P tonsillectomy Family History Mother Anemia Alzheimer disease Father Heart disease Hypertension Kidney disease COPD (chronic obstructive pulmonary disease) Social History Smoking and tobacco status: current every day smoker cigarettes Packs smoked per day: 0.75 [ Other cigarette details: started age 15 ] and e-cigarettes E- Cigarette Details: vaporizer device Quit status (tobacco): has tried quititng Alcohol intake: current Alcohol intake frequency: 0-2 Drinks per Day Physical Exam Const: COMMON NORMALS: no acute distress, patient oriented x3, healthy appearing and alert GENERAL APPEARANCE: cooperative and comfortable HENMT: COMMON NORMALS: normocephalic HEAD & SCALP: normocephalic MOUTH: Normal oral and palatal mucosa present THROAT: posterior oropharynx normal and uvula midline Neck/C-Spine: COMMON NORMALS: supple GENERAL: Yes normal visual inspection Resp: COMMON NORMALS: normal respiratory effort, No retractions, No use of accessory muscles and clear to auscultation bilaterally AUSCULTATION: clear to auscultation bilaterally Cardio: COMMON NORMALS: regular rate, regular rhythm, S1 normal heart sound present, S2 normal heart sound present, No gallops present (Cardio), No clicks present (Cardio), No murmurs present (Cardio) and Peripheral pulses 2+ throughout RATE: regular rate RHYTHM: regular rhythm HEART SOUNDS: S1 normal heart sound present and S2 normal heart sound present PERIPHERAL PULSES: Peripheral pulses 2+ throughout GI: COMMON NORMALS: Normal to inspection, nondistended, normoactive bowel sounds present, Soft to palpation, non-tender and no masses PALPATION: Yes Soft to palpation : COMMON NORMALS: Yes no CVA tenderness BLADDER/KIDNEY EXAM: Yes no CVA tenderness Back/Pelvis: COMMON NORMALS: no CVA tenderness Extremity: NARRATIVE EXTREMITY EXAM: Right arm?patient has multiple dog bite puncture wounds on right arm. They are all scabbed over and healing. All puncture wounds on right arm have a ring of erythema around them with some warmth and tenderness to palpation. No purulent drainage seen. Signs suggestive of cellulitis developing. GENERAL: Yes normal exam except as noted Neuro: COMMON NORMALS: patient oriented x3 and moves all extremities SENSORIUM/ORIENTATION: Yes alert Skin: NARRATIVE SKIN EXAM: Right arm?patient has multiple dog bite puncture wounds on right arm. They are all scabbed over and healing. All puncture wounds on right arm have a ring of erythema around them with some warmth and tenderness to palpation. No purulent drainage seen. Signs suggestive of cellulitis developing. GENERAL SKIN EXAM: dry skin Course Vital Signs: Vital signs: Vital Signs Temperature 98.9 F 05/22/20 17:06 Pulse Rate 73 05/22/20 17:06 Respiratory Rate 18 05/22/20 17:06 Pulse Oximetry 97 05/22/20 17:06 MDM - Animal Bite MDM Narrative: Medical decision making narrative: Patient is a 59-year-old female comes to the ED with dog bite puncture wounds on right arm that she is concerned to get infected. Patient said dog was fully vaccinated including rabies vaccination. Patient is up-to-date on her tetanus. Exam shows some developing cellulitis around the dog bite on right arm. Patient diagnosed with cellulitis and sent home with a prescription of Augmentin. Return to ED precautions given. Follow-up with PCP in 7 to 10 days for reevaluation. Patient understood and agreed with plan. Discharge Plan Discharge Patient Disposition: Home Clinical Impression: Cellulitis Qualifiers: Site of cellulitis: extremity Site of cellulitis of extremity: upper extremity Laterality: right Qualified Code(s): L03.113 - Cellulitis of right upper limb Condition: Stable Prescriptions: New Augmentin 500-125 mg tablet 1 tab PO BID 7 Days Qty: 14 RF: 0 No Action sertraline 100 mg tablet 100 mg PO DAILY@0730 RF: 0 levothyroxine 75 mcg capsule 75 mcg PO DAILY@0730 RF: 0 gabapentin 300 mg capsule 300 mg PO TID@07,,22 PRN (Reason: Pain) RF: 0 atorvastatin 40 mg tablet 40 mg PO DAILY@0730 RF: 0 cyclobenzaprine 5 mg tablet 5 mg PO TID PRN (Reason: muscle spasms) RF: 0 lorazepam 0.5 mg tablet 0.5 mg PO DAILY PRN (Reason: unknown) RF: 0 meloxicam [Mobic] 15 mg tablet 15 mg PO DAILY@0730 RF: 0 isosorbide mononitrate 20 mg tablet 20 mg PO BID Qty: 60 RF: 2 metoprolol succinate 25 mg tablet extended release 24 hr 12.5 mg PO DAILY Qty: 30 RF: 3 spironolactone 25 mg tablet 12.5 mg PO DAILY Qty: 30 RF: 3 calcium carbonate-vitamin D3 600 mg(1,500mg) -200 unit Tablet 1 tab PO DAILY@729 RF: 0 aspirin 81 mg Tablet,Delayed Release (Dr/Ec) 81 mg PO DAILY@729 RF: 0 vitamin B complex Tablet 1 tab PO DAILY@729 RF: 0 Cinnamon 500 mg Capsule 500 mg PO DAILY@729 RF: 0 turmeric 400 mg Capsule 400 mg PO DAILY@729 RF: 0 One-A-Day Women's 50 Plus 1 tab PO DAILY@729 RF: 0 Entresto 24-26 mg tablet 1 tab PO BID Qty: 60 RF: 0 Protonix 20 mg tablet,delayed release (DR/EC) 20 mg PO DAILY Qty: 30 RF: 0 Discharge Orders: Discharge ED (Routine); Ordered 05/22/20 Ordered By: Maximilian Abbott Referrals: Veronica Dial MD [Primary Care Provider] - Discharge Diet: Regular Discharge Activity: Resume usual activity Patient Instructions: Cellulitis (ED) Activity Restrictions/Additional Instructions: Follow-up with medical provider as directed in 7 to 10 days for reevaluation. Take medications as prescribed. Return to the ER or your medical provider if condition worsens. Please read and understand discharge instructions. If any q uestions, please ask. Coding Level of Care Code ED Sales Estimator for [facility] Fwd Exam Comprehensive
[2020-05-22] MEDS: amoxicillin-clav 500-125 mg Tablet 1 TAB PO (18:12)
== END 2020-05-22 18:14 | disposition home or self-care (01) ==
PROVIDERS: Emergency Provider Physician Assistant; PCP Internal Medicine
DX: L03.113 Cellulitis of right upper limb (principal); Z79.82 Long term (current) use of aspirin; I11.0 Hypertensive heart disease with heart failure; I50.9 Heart failure, unspecified; F17.210 Nicotine dependence, cigarettes, uncomplicated
CPT/HCPCS: 99282

== ENCOUNTER 2020-06-06 13:41 | Outpatient (CLI) | payer SELFPAY ==
[2020-06-06 14:31] LABS: Anion Gap 16.7 (5-19); Blood Urea Nitrogen 19 mg/dL (6-20); Calcium 10.1 mg/dL (8.5-10.5); Carbon Dioxide 28 mmol/L (22-29); Chloride 100 mmol/L (98-107); Glomerular Filtration Rate 73.4 mL/min (90-130); Glucose 127 mg/dL (65-115); Osmolality Calculated 294 mOsm/kg (285-295); Potassium 4.7 mmol/L (3.5-5.1); Sodium 140 mmol/L (136-145)
== END 2020-06-06 13:42 | disposition home or self-care (01) ==
LOC: LAB 13:48
PROVIDERS: PCP Family Medicine; Visit Provider Internal Medicine Nephrology
DX: N18.32 Chronic kidney disease, stage 3b (principal)
CPT/HCPCS: 80048

== ENCOUNTER → 2020-06-12 15:51 | Outpatient (BNVA) | payer SELFPAY | PROVIDERS: PCP Family Medicine; Visit Provider Family Medicine | DX: L03.317 Cellulitis of buttock (principal); M25.512 Pain in left shoulder | CPT/HCPCS: 87070; 87075; 87205 ==

== ENCOUNTER 2020-06-26 09:30 | Outpatient (CLI) | payer SELFPAY ==
--- NOTE | 2020-06-26 09:30 | MR_ITS ---
WS: [id number] MRI LEFT SHOULDER HISTORY: acute left shoulder pain COMPARISON: None available. TECHNIQUE: Multiplanar sequences of the shoulder joint are submitted. Severe hypertrophic changes involving the AC joint. Bony hypertrophy with edema in the distal clavicl e and adjacent acromion with osteophytes causing significant encroachment and deformity of the supras pinatus muscle and tendon. There is a small amount of fluid along the AC ligament. No os acromion. Bi ceps tendon is in normal position but there is thickening and increased fluid in the biceps tendon as it exits the capsule. There is a small amount of fluid in the subacromial and subdeltoid bursa. There is a large amount of edema in the humeral head and neck and a large subchondral cyst measuring 9.5 mm. Loss of the cartilage with cortical irregularity over a large portion of the posterior latera l humeral head. Mild tendinopathy of the supraspinatus tendon. Supraspinatus tendon attaches in the r egion of the large subchondral cyst. No definite tear is identified. There is no muscle atrophy or ed reagan in the rotator cuff muscles. There is a small amount of fluid in the subscapularis recess. No lab ral tears are identified. MR/MR shoulder LT wo con* [id number] IMPRESSION: 1. Severe AC joint arthritis. Hypertrophic changes causing significant encroac hment upon the supraspinatus muscle and tendon. 2. Thickening and increased fluid within the extracapsular biceps tendon. Cons istent with biceps tendinitis. 3. Edema with loss of cartilage over the posterior lateral humeral head. Suspi cious for healing fracture involving the humeral head without displacement. 4. No rotator cuff tear identified.
== END 2020-06-26 09:31 | disposition home or self-care (01) ==
LOC: RADSHAW 09:33
PROVIDERS: PCP Family Medicine; Visit Provider Family Medicine
DX: M13.812 Other specified arthritis, left shoulder (principal); R60.0 Localized edema
CPT/HCPCS: 73221

== ENCOUNTER 2020-07-18 15:41 | Outpatient (CLI) | payer SELFPAY ==
--- NOTE | 2020-07-18 16:00 | MR_ITS ---
WS: [id number] MRI CERVICAL SPINE NONCONTRAST TECHNIQUE: Sagittal T1, T2 and STIR imaging. Axial T2, gradient, and fiesta imaging. CLINICAL INFORMATION: neck pain radiating into left arm COMPARISON: None. FINDINGS: Normal cervical alignment. No high-grade central canal stenosis. Cord signal is normal. ACDF C3-C6. D isc bulging worse at C6-7. C2-C3: Mild left and no significant right foraminal narrowing. Spinal canal is patent. Mild facet art hropathy. C3-C4: Mild bilateral bony foraminal narrowing left greater than right. Spinal canal is patent. C4-C5: Postoperative changes ACDF. Mild left and no significant right foraminal narrowing. Mild facet arthropathy. C5-C6: ACDF. Mild bilateral bony foraminal narrowing right greater than left. Mild facet arthropathy. Mild central canal stenosis. C6-C7: Tiny shallow central protrusion. Slight effacement of ventral thecal sac. Spinal canal and for amen are patent. C7-T1: Disc osteophytic ridging eccentric the left with mild to moderate left bony foraminal narrowin g. Right foramen is patent. Spinal canal is patent Visualized brain stem structures: Normal. Prevertebral soft tissues: Normal. MR/MR cervical spin wo con* [id number] IMPRESSION: 1. Prior postoperative changes ACDF C3-C6. Cord signal is normal. 2. Multilevel bony foraminal narrowing worse at left C7-T1 with mild to modera te left bony foraminal narrowing. 3. Multilevel mild bony foraminal narrowing described above at bilateral C3-4, left C4-C5, right C5-C6. 4. Tiny shallow central protrusion C6-C7 with slight effacement of ventral the jessie sac.
== END 2020-07-18 15:42 | disposition home or self-care (01) ==
LOC: RADSHAW 15:42
PROVIDERS: PCP Family Medicine; Visit Provider Family Medicine
DX: M54.12 Radiculopathy, cervical region (principal); M50.223 Other cervical disc displacement at C6-C7 level; Z98.1 Arthrodesis status
CPT/HCPCS: 72141

== ENCOUNTER → 2020-07-27 08:38 | Outpatient (BNVA) | payer SELFPAY | PROVIDERS: PCP Family Medicine; Referring Provider Family Medicine; Visit Provider Anesthesiology Pain Medicine | DX: G89.29 Other chronic pain (principal); M19.012 Primary osteoarthritis, left shoulder; M54.12 Radiculopathy, cervical region; M47.812 Spondylosis without myelopathy or radiculopathy, cervical region; F17.210 Nicotine dependence, cigarettes, uncomplicated; Z79.891 Long term (current) use of opiate analgesic | CPT/HCPCS: 20610; 99205; J1030; J3490 ==

== ENCOUNTER 2020-08-03 09:50 | Outpatient (CLI) | payer SELFPAY ==
--- NOTE | 2020-08-03 10:15 | USCV_ITS ---
Ryan Sanchez Age: 60 Gender: F : 1960 Exam Date: 08/03/2020 10:02 Ordering Phys: Roxy Fregoso MD ([email or web address]) Technologist: Lou Rodriguez [place]am Location[place] [facility] [place] Indication: Congestive heart failure, left-ventricular function BP: 112 / 57 HR: 73 Rhythm: Sinus Technical Quality: Adequate MEASUREMENTS (Male / Female) Normal Values 2D ECHO LV Diastolic Diameter PLAX 5.0 cm 4.2 - 5.9 / 3.9 - 5.3 cm LV Systolic Diameter PLAX 3.7 cm IVS Diastolic Thickness 1.2 cm 0.6 - 1.0 / 0.6 - 0.9 cm IVS Systolic Thickness 1.6 cm LVPW Diastolic Thickness 0.8 cm 0.6 - 1.0 / 0.6 - 0.9 cm LVPW Systolic Thickness 0.9 cm LVOT Diameter 2.0 cm LV Ejection Fraction 2D Teich 49.4 % LV Ejection Fraction MOD 2C 66.0 % LV Ejection Fraction 2C AL 67.2 % LA Diameter 2.9 cm LA Width 3.0 cm LA Height 5.2 cm RA Width 2.7 cm RA Height 4.0 cm Aorta at Sinotubular Diameter 2.3 cm M-MODE LV Diastolic Diameter MM 6.1 cm 4.2 - 5.9 / 3.9 - 5.3 cm LV Systolic Diameter MM 4.3 cm LV Ejection Fraction MM Teich 54.1 % IVS Diastolic Thickness MM 0.8 cm 0.6 - 1.0 / 0.6 - 0.9 cm IVS Systolic Thickness MM 1.7 cm LVPW Diastolic Thickness MM 1.0 cm 0.6 - 1.0 / 0.6 - 0.9 cm LVPW Systolic Thickness MM 1.7 cm Aortic Annulus Diameter 3.2 cm LA Ao Ratio MM 1.0 MV E Point Septal Separation 0.3 cm FINDINGS Left Ventricle Normal left ventricular cavity size. Low normal left ventricular systolic function. Left ventricular ejection fraction is estimated at 50-55 %. No regional wall motion abnormalities. Abnormal septal motion consistent with conduction abnormality. Right Ventricle Normal right ventricular size and systolic function. Right Atrium Normal right atrial size. Right atrial pressure estimated at 3 mmHg. Left Atrium Mildly increased left atrial size. Mitral Valve Structurally normal mitral valve. Aortic Valve Aortic valve not well visualized. Tricuspid Valve Structurally normal tricuspid valve. Pulmonic Valve Pulmonic valve not well visualized. Pericardium No pericardial effusion. Aorta Normal-sized aortic root. Normal-sized inferior vena cava. CONCLUSIONS 1. This is a limited echocardiogram. 2. Normal left ventricular cavity size. Low normal left ventricular systolic function. Left ventricular ejection fraction is estimated at 50-55 %. No regional wall motion abnormalities. Abnormal septal motion consistent with conduction abnormality. 3. Normal right ventricular size and systolic function. 4. Mildly increased left atrial size. 5. When compared to previous echocardiogram dated 05/04/2020, left ventricle systolic function seems to have improved. Roxy Fregoso MD (Electronically Signed) Final Date: 06 Aug 2020 18:52 S
== END 2020-08-03 09:51 | disposition home or self-care (01) ==
PROVIDERS: PCP Family Medicine; Visit Provider Internal Medicine Cardiovascular Disease
DX: I50.9 Heart failure, unspecified (principal)
CPT/HCPCS: 93308

== ENCOUNTER 2020-08-15 06:00 | Outpatient (RCR) | payer SELFPAY | END 2020-09-12 23:59 | disposition home or self-care (01) | LOC: SPT 06:00 | PROVIDERS: PCP Family Medicine; Referring Provider Anesthesiology Pain Medicine; Visit Provider Anesthesiology Pain Medicine | DX: M19.019 Primary osteoarthritis, unspecified shoulder (principal); M54.12 Radiculopathy, cervical region; G89.29 Other chronic pain | CPT/HCPCS: 97110; 97140; 97161 ==

== ENCOUNTER → 2020-08-24 08:31 | Outpatient (BNVA) | payer SELFPAY | PROVIDERS: PCP Family Medicine; Visit Provider Anesthesiology Pain Medicine | DX: G89.29 Other chronic pain (principal); M54.12 Radiculopathy, cervical region; M47.812 Spondylosis without myelopathy or radiculopathy, cervical region; M25.512 Pain in left shoulder; M25.561 Pain in right knee; M25.562 Pain in left knee; F17.210 Nicotine dependence, cigarettes, uncomplicated; Z79.891 Long term (current) use of opiate analgesic | CPT/HCPCS: 99215 ==

== ENCOUNTER → 2020-09-03 12:59 | Outpatient (BNVA) | payer SELFPAY | PROVIDERS: PCP Family Medicine; Visit Provider Anesthesiology Pain Medicine | DX: M47.812 Spondylosis without myelopathy or radiculopathy, cervical region (principal); F17.210 Nicotine dependence, cigarettes, uncomplicated; Z79.891 Long term (current) use of opiate analgesic | CPT/HCPCS: 64490; 64491; 64492; J3490 ==

== ENCOUNTER 2020-09-06 16:18 | Emergency (ER) | payer SELFPAY ==
[2020-09-06 16:33] VITALS: BP 112/72; PULSE 63; RESP 16; TEMP 36.7; O2SAT 97; BMI 28.8
--- NOTE | 2020-09-06 16:48 | XRR_ITS ---
PROCEDURE INFORMATION: Exam: XR Chest Exam date and time: 09/06/2020 4:48 PM Age: 60 years old Clinical indication: Chest pressure; Patient HX: Sternal cp radiates up neck, right sided abd pain. Transient pain for weeks. ; Additional info: Cp and weakness TECHNIQUE: Imaging protocol: XR of the chest. Views: 1 view. COMPARISON: CT chest w con* [id number] 05/03/2020 7:38 PM FINDINGS: Lungs: Mild interstitial fibrosis. No consolidative pulmonary infiltrate noted. Pleural spaces: No pleural effusion. No pneumothorax. Heart/Mediastinum: No cardiomegaly. Vasculature: Mild atherosclerotic calcification in the aortic arch. Bones/joints: Postop change of the cervical spine. XR/XR chest 1V portable [id number] IMPRESSION: Mild interstitial fibrosis. No consolidative pulmonary infiltrate noted.
--- NOTE | 2020-09-06 16:49 | ECG_ITS ---
[facility] Test Date: 2020-09-06 Pat Name: Ryan Sanchez Department: Room: Gender: Female Tafe Registrar: : 1960 Requested By: Maximilian Abbott Order Number: [id number] Romero MD: Roxy Fregoso M.D. Measurements Intervals [place] Rate: 58 P: 64 MO: 150 QRS: 49 QRSD: 89 T: 78 QT: 399 QTc: 394 Interpretive Statements SINUS BRADYCARDIA Compared to ECG 05/03/2020 22:16:31 Sinus rhythm no longer present Left bundle-branch block no longer present Electronically Signed On 09-07-2020 14:15:57 CDT by Roxy Fregoso M.D. [email or web address]
--- NOTE | 2020-09-06 17:55 | ED_ITS ---
HPI - Chest Pain General: Chief Complaint: Chest Pain Stated Complaint: abdomen and chest pain Time Seen by Provider: 09/06/20 17:46 Source: patient Mode of arrival: ambulatory Limitations: no limitations History of Present Illness: HPI narrative: 60-year-old female who states she has just felt generally weak over the last 2 to 3 weeks. States that today roughly an hour before arrival started having some chest pain 2. States it is a sharp pain in the left chest. She denies any dyspnea. Denies any worsening previous factors. Denies any vomiting or diarrhea. Associated symptoms: Deny abdominal pain, dyspnea, fever(s), nausea or vomiting Review of Systems Const: Denies: fever(s), chills, body aches or change in appetite Eyes: Denies: blurry vision or eye discomfort ENMT: Denies: throat pain or dental pain Card: Reports: chest pain Resp: Denies: dyspnea GI: Denies: abdominal pain, nausea, vomiting or diarrhea : Denies: dysuria Musc: Denies: neck pain or back pain Skin/Breast: Denies: rash Neuro: Reports: weakness in extremities Psych: Denies: depression Dennis/Lymph: Denies: easy bruising All/Imm: Denies: urticaria PFSH ED PFSH: Medical History Anxiety Back pain, chronic CHF (NYHA class III, ACC/AHA stage C) LVEF 35% Depression History of rheumatic fever as a child Hypercholesterolemia Hypertension Hypothyroidism LBBB (left bundle branch block) Osteoarthritis Unstable angina Urinary incontinence, mixed Surgical History H/O left wrist surgery H/O Spinal surgery ALDF and ACDF. H/O vaginal surgery Urethral sling History of 2 sections S/P colonoscopy S/P excision of lipoma Right buttocks. S/P lumpectomy, left breast S/P tonsillectomy Family History Mother Anemia Alzheimer disease Father Heart disease Hypertension Kidney disease COPD (chronic obstructive pulmonary disease) Social History Smoking and tobacco status: current every day smoker cigarettes Packs smoked per day: 0.75 Years cigarettes smoked: 45 [ Other cigarette details: started age 15 ] and e-cigarettes E-Cigarette Details: vaporizer device Quit status (tobacco): has tried quititng Number of times tried to quit tobacco: 4 Second hand smoke exposure: Yes Alcohol intake: current Alcohol intake frequency: 0-2 Drinks per Day History of recent travel: No Physical Exam Const: COMMON NORMALS: no acute distress, patient oriented x3 and healthy appearing HENMT: COMMON NORMALS: normocephalic and atraumatic HEAD & SCALP: normocephalic and atraumatic Eye: COMMON NORMALS: Equal, round and reactive pupils present and EOMs intact bilaterally PUPIL: Yes Equal, round and reactive pupils present Neck/C-Spine: COMMON NORMALS: full ROM and supple Chest: COMMONS NORMALS: normal inspection of the chest and normal palpation of entire chest wall Resp: COMMON NORMALS: normal respiratory effort, No retractions, No use of accessory muscles and clear to auscultation bilaterally AUSCULTATION: clear to auscultation bilaterally Cardio: COMMON NORMALS: regular rate, regular rhythm and No murmurs present (Cardio) RATE: regular rate RHYTHM: regular rhythm GI: COMMON NORMALS: Normal to inspection, nondistended, normoactive bowel sounds present, Soft to palpation, non-tender and no masses PALPATION: Yes Soft to palpation Extremity: COMMON NORMALS: normal to inspection and full ROM Neuro: COMMON NORMALS: patient oriented x3, moves all extremities and no focal motor deficits Psych: COMMON NORMALS: mental status grossly normal, Normal thought process present and cooperative THOUGHT PROCESS: Normal thought process present Skin: COMMON NORMALS: no rashes or lesions noted and no wounds GENERAL SKIN EXAM: no rashes or lesions noted Course Vital Signs: Vital signs: Vital Signs Temperature 98.0 F 09/06/20 16:33 Pulse Rate 66 09/06/20 20:12 Respiratory Rate 21 H 09/06/20 20:12 Blood Pressure 119/65 09/06/20 20:12 Pulse Oximetry 96 09/06/20 20:12 MDM - Chest Pain MDM Narrative: Medical decision making narrative: Patient presents here with chest pain or some generalized weakness. She is well-appearing here blood work EKG and x-ray are all normal. She is stable for discharge to follow-up with PCP and return if worsening. Lab Data: Labs: Lab Results 09/06/20 09/06/20 09/06/20 Range/Units 17:53 17:53 17:53 WBC 10.2 H (4.0-10.0) 10^3/ uL RBC 4.38 (4.1-5.3) 10^6/u L Hgb 14.5 (11.5-15.3) g/dL Hct 44.9 (37.0-47.0) % MCV 102.5 H (81-99) fL MCH 33.1 (28.0-34.0) pg MCHC 32.3 (30.0-36.0) g/dL RDW 13.7 (12.1-15.1) % Plt Count 285 (130-400) 10^3/c mm MPV 9.5 (7.4-10.4) fL Neut % (Auto) 55.6 % Lymph % (Auto) 33.4 % [place] % (Auto) 7.4 % Eos % (Auto) 2.3 % Baso % (Auto) 1.0 % Neut # (Auto) 5.68 (1.8-7.7) 10^3/u L Lymph # (Auto) 3.4 (0.8-4.8) 10^3/u L [place] # (Auto) 0.8 (0.2-0.9) 10^3/u L Eos # (Auto) 0.2 (0.0-0.8) 10^3/u L Baso # (Auto) 0.1 (0.0-0.1) 10^3/u L Nucleated RBC % (a uto) 0 % Nucleated RBCs # 0.0 /100WBC Sodium 139 (136-145) mmol/L Potassium 4.7 (3.5-5.1) mmol/L Chloride 102 (98-107) mmol/L Carbon Dioxide 28 (22-29) mmol/L Anion Gap 13.7 (5-19) BUN 19 (8-23) mg/dL Creatinine 0.9 (0.5-0.9) mg/dL GFR Calculation Not Reportable Glucose 90 (65-115) mg/dL Calculated Osmolal ity 290 (285-295) mOsm/k g Calcium 9.5 (8.5-10.5) mg/dL Total Bilirubin 0.3 (0.15-1.2) mg/dL AST 20 (0-32) U/L ALT 15 (0-33) U/L Alkaline Phosphata se 84 (35-105) IU/L Troponin T Baselin e 6 (0-10) ng/L Troponin T 120 Min [place] (0-10) ng/L Delta Troponin T (0-10) ABS# NT-Pro-B Natriuret Pep 67 (0-125) pg/mL Total Protein 7.2 (6.6-8.7) g/dL Albumin 4.6 (3.5-5.2) g/dL Globulin 2.6 (1.3-4.6) g/dL Lipase 41 (13-60) U/L TSH 2.27 (0.27-4.20) uIU/ mL Urine Color (Yellow) Urine Appearance (CLEAR) Urine pH (5-7) Ur Specific Gravit y (1.005-1.030) Urine Protein (Negative) Urine Glucose (UA) (Normal) Urine Ketones (Negative) Urine Blood (Negative) Urine Nitrate (Negative) Urine Bilirubin (Negative) Prot Sulfosalicyli c Acd (Negative) Urine Urobilinogen (Negative) mg/dL Ur Leukocyte Vane ase (Negative) Urine RBC (0-2) /hpf Urine WBC (0-5) /hpf Ur Squamous Epith Cells (0-5) /hpf Amorphous Sediment Urine Bacteria (NONE) /hpf 09/06/20 09/06/20 Range/Units 18:07 20:15 WBC (4.0-10.0) 10^3/ uL RBC (4.1-5.3) 10^6/u L Hgb (11.5-15.3) g/dL Hct (37.0-47.0) % MCV (81-99) fL MCH (28.0-34.0) pg MCHC (30.0-36.0) g/dL RDW (12.1-15.1) % Plt Count (130-400) 10^3/c mm MPV (7.4-10.4) fL Neut % (Auto) % Lymph % (Auto) % [place] % (Auto) % Eos % (Auto) % Baso % (Auto) % Neut # (Auto) (1.8-7.7) 10^3/u L Lymph # (Auto) (0.8-4.8) 10^3/u L [place] # (Auto) (0.2-0.9) 10^3/u L Eos # (Auto) (0.0-0.8) 10^3/u L Baso # (Auto) (0.0-0.1) 10^3/u L Nucleated RBC % (a uto) % Nucleated RBCs # /100WBC Sodium (136-145) mmol/L Potassium (3.5-5.1) mmol/L Chloride (98-107) mmol/L Carbon Dioxide (22-29) mmol/L Anion Gap (5-19) BUN (8-23) mg/dL Creatinine (0.5-0.9) mg/dL GFR Calculation Glucose (65-115) mg/dL Calculated Osmolal ity (285-295) mOsm/k g Calcium (8.5-10.5) mg/dL Total Bilirubin (0.15-1.2) mg/dL AST (0-32) U/L ALT (0-33) U/L Alkaline Phosphata se (35-105) IU/L Troponin T Baselin e (0-10) ng/L Troponin T 120 Min [place] 6.02 (0-10) ng/L Delta Troponin T 0.02 (0-10) ABS# NT-Pro-B Natriuret Pep (0-125) pg/mL Total Protein (6.6-8.7) g/dL Albumin (3.5-5.2) g/dL Globulin (1.3-4.6) g/dL Lipase (13-60) U/L TSH (0.27-4.20) uIU/ mL Urine Color Straw (Yellow) Urine Appearance Clear (CLEAR) Urine pH 8 H (5-7) Ur Specific Gravit y 1.010 (1.005-1.030) Urine Protein Neg (Negative) Urine Glucose (UA) Norm (Normal) Urine Ketones Negative (Negative) Urine Blood Neg (Negative) Urine Nitrate Negative (Negative) Urine Bilirubin Neg (Negative) Prot Sulfosalicyli c Acd Negative (Negative) Urine Urobilinogen Norm (Negative) mg/dL Ur Leukocyte Vane ase Negative (Negative) Urine RBC None (0-2) /hpf Urine WBC None (0-5) /hpf Ur Squamous Epith Cells 0-4 H (0-5) /hpf Amorphous Sediment Not Reportable Urine Bacteria None (NONE) /hpf Imaging Data^: CXR: Attestation: I personally reviewed and interpreted this imaging study as follows: My impression: no acute abnormality EKG Data^: EKG 1: Attestation: I personally reviewed and interpreted this EKG as follows: EKG interpretation date: 09/06/20 EKG interpretation time: 16:44 Interpretation: nsr hr [address] or t wave abnormalities qrs 93 qtc 402 Discharge Plan Discharge Patient Disposition: Home Clinical Impression: Weakness Chest pain Qualifiers: Chest pain type: unspecified Qualified Code(s): R07.9 - Chest pain, unspecified Condition: Stable Prescriptions: No Action levothyroxine 75 mcg capsule 75 mcg PO DAILY@07 RF: 0 atorvastatin 40 mg tablet 40 mg PO DAILY@0730 RF: 0 cyclobenzaprine 5 mg tablet 5 mg PO TID PRN (Reason: muscle spasms) RF: 0 metoprolol succinate 25 mg tablet extended release 24 hr 12.5 mg PO DAILY Qty: 30 RF: 3 sertraline 100 mg tablet 150 mg PO DAILY Qty: 45 RF: 2 diazepam 10 mg tablet 10 mg PO ONCE PRN (Reason: anxiety) Qty: 2 RF: 0 hydrocodone-acetaminophen 5-325 mg tablet 1 tab PO DAILY PRN (Reason: pain) 5 Days Qty: 5 RF: 0 gabapentin 300 mg capsule 300 mg PO TID@0730,14,22 PRN (Reason: Pain) Qty: 90 RF: 0 spironolactone 25 mg tablet 12.5 mg PO DAILY Qty: 30 RF: 3 tramadol 50 mg tablet 50 mg PO BID PRN (Reason: pain) Qty: 46 RF: 0 isosorbide mononitrate 20 mg tablet 20 mg PO BID Qty: 60 RF: 2 calcium carbonate-vitamin D3 600 mg(1,500mg) -200 unit Tablet 1 tab PO DAILY@0730 RF: 0 aspirin 81 mg Tablet,Delayed Release (Dr/Ec) 81 mg PO DAILY@0730 RF: 0 vitamin B complex Tablet 1 tab PO DAILY@30 RF: 0 Cinnamon 500 mg Capsule 500 mg PO DAILY@30 RF: 0 turmeric 400 mg Capsule 400 mg PO DAILY@30 RF: 0 One-A-Day Women's 50 Plus 1 tab PO DAILY@0730 RF: 0 Entresto 24-26 mg tablet 1 tab PO BID Qty: 60 RF: 0 Discharge Orders: Discharge ED (Routine); Ordered 09/06/20 Ordered By: Michael Valentin Referrals: Mariaa Smith DO [Primary Care Provider] - 1-3 days Discharge Diet: Advance as tolerated Discharge Activity: Resume usual activity Patient Instructions: Chest Pain (ED) Coding Level of Care Code ED Vibratory Pile Driver for Chg Fwd Exam Comprehensive
[2020-09-06 18:12] LABS: Basophils # 0.1 10^3/uL (0.0-0.1); Eosinophils # 0.2 10^3/uL (0.0-0.8); Eosinophils % 2.3 %; Hematocrit 44.9 % (37.0-47.0); Hemoglobin 14.5 g/dL (11.5-15.3); Lymphocytes # 3.4 10^3/uL (0.8-4.8); Lymphocytes % 33.4 %; Mean Corpuscular HGB Conc 32.3 g/dL (30.0-36.0); Mean Corpuscular Hemoglobin 33.1 pg (28.0-34.0); Mean Corpuscular Volume 102.5 fL (81-99); Mean Platelet Volume 9.5 fL (7.4-10.4); Monocytes # 0.8 10^3/uL (0.2-0.9); Monocytes % 7.4 %; Neutrophils # 5.68 10^3/uL (1.8-7.7); Neutrophils % 55.6 %; Nucleated Red Blood Cells % 0 %; Platelet Count 285 10^3/cmm (130-400); Red Blood Count 4.38 10^6/uL (4.1-5.3); Red Cell Distribution Width 13.7 % (12.1-15.1); White Blood Count 10.2 10^3/uL (4.0-10.0)
[2020-09-06 18:23] LABS: Troponin(5th) Baseline 6 ng/L (0-10)
[2020-09-06 18:31] LABS: Blood Urine Neg (Negative); Glucose Urine UA Norm (Normal); Ketones Urine Negative (Negative); Protein Urine Neg (Negative); Sulfosalicylic Acid Urine Negative (Negative); Urine Appearance Clear (CLEAR); Urine Color Straw (Yellow); pH Urine 8 (5-7)
[2020-09-06 18:32] LABS: Bilirubin Urine Neg (Negative); Leukocyte Esterase Urine Negative (Negative); Nitrate Urine Negative (Negative); Urobilinogen Urine Norm (Negative)
[2020-09-06 18:33] LABS: Alanine Aminotransferase 15 U/L (0-33); Albumin Level 4.6 g/dL (3.5-5.2); Alkaline Phosphatase 84 IU/L (35-105); Anion Gap 13.7 (5-19); Aspartate Amino Transferase 20 U/L (0-32); Blood Urea Nitrogen 19 mg/dL (8-23); Calcium 9.5 mg/dL (8.5-10.5); Carbon Dioxide 28 mmol/L (22-29); Chloride 102 mmol/L (98-107); Globulin 2.6 g/dL (1.3-4.6); Glucose 90 mg/dL (65-115); Lipase 41 U/L (13-60); NT Pro B Type Natriuretic Pept 67 pg/mL (0-125); Osmolality Calculated 290 mOsm/kg (285-295); Potassium 4.7 mmol/L (3.5-5.1); Sodium 139 mmol/L (136-145); Thyroid Stimulating Hormone 2.27 uIU/mL (0.27-4.20); Total Bilirubin 0.3 mg/dL (0.15-1.2); Total Protein 7.2 g/dL (6.6-8.7)
[2020-09-06 18:46] LABS: Squamous Epithelial Cell Urine 0-4 /hpf (0-5)
[2020-09-06 18:59] VITALS: BP 132/60; PULSE 70; RESP 18; O2SAT 97
[2020-09-06 19:17] VITALS: BP 122/74; PULSE 65; RESP 18; O2SAT 97
[2020-09-06 20:12] VITALS: BP 119/65; PULSE 66; RESP 21; O2SAT 96
[2020-09-06 20:51] LABS: Troponin 5 2HR 6.02 ng/L (0-10); Troponin 5 2HR Delta 0.02 ABS# (0-10)
[2020-09-06 21:13] VITALS: PULSE 78; RESP 15; O2SAT 97
== END 2020-09-06 21:13 | disposition home or self-care (01) ==
PROVIDERS: Physician Assistant; Emergency Provider Emergency Medicine; PCP Family Medicine
DX: R53.1 Weakness (principal); R07.9 Chest pain, unspecified; Z79.82 Long term (current) use of aspirin; I11.0 Hypertensive heart disease with heart failure; I50.9 Heart failure, unspecified; F17.210 Nicotine dependence, cigarettes, uncomplicated
CPT/HCPCS: 71045; 80053; 81001; 83690; 83880; 84443; 84484; 85025; 93005; 99283

== ENCOUNTER 2020-09-13 06:00 | Outpatient (RCR) | payer SELFPAY | END 2020-10-13 23:59 | disposition home or self-care (01) | LOC: SPT 06:00 | PROVIDERS: PCP Family Medicine; Referring Provider Anesthesiology Pain Medicine; Visit Provider Anesthesiology Pain Medicine | DX: M19.019 Primary osteoarthritis, unspecified shoulder (principal); M54.12 Radiculopathy, cervical region; G89.29 Other chronic pain | CPT/HCPCS: 97110; 97140 ==

== ENCOUNTER → 2020-09-18 13:33 | Outpatient (BNVA) | payer SELFPAY | PROVIDERS: PCP Family Medicine; Visit Provider Anesthesiology Pain Medicine | DX: M47.812 Spondylosis without myelopathy or radiculopathy, cervical region (principal); F17.210 Nicotine dependence, cigarettes, uncomplicated; Z79.891 Long term (current) use of opiate analgesic | CPT/HCPCS: 64490; 64491; 64492; J3490 ==

== ENCOUNTER → 2020-10-02 10:26 | Outpatient (BNVA) | payer SELFPAY | PROVIDERS: PCP Family Medicine; Visit Provider Anesthesiology Pain Medicine | DX: G89.29 Other chronic pain (principal); M54.12 Radiculopathy, cervical region; M47.812 Spondylosis without myelopathy or radiculopathy, cervical region; M25.512 Pain in left shoulder; M19.019 Primary osteoarthritis, unspecified shoulder; M79.604 Pain in right leg; M79.605 Pain in left leg; F17.210 Nicotine dependence, cigarettes, uncomplicated; Z79.891 Long term (current) use of opiate analgesic | CPT/HCPCS: 99214 ==

== ENCOUNTER → 2020-10-09 14:23 | Outpatient (BNVA) | payer SELFPAY | PROVIDERS: PCP Family Medicine; Visit Provider Anesthesiology Pain Medicine | DX: M47.812 Spondylosis without myelopathy or radiculopathy, cervical region (principal); F17.210 Nicotine dependence, cigarettes, uncomplicated; Z79.891 Long term (current) use of opiate analgesic | CPT/HCPCS: 64633; 64634; J1030 ==

== ENCOUNTER → 2020-10-23 13:56 | Outpatient (BNVA) | payer MEDICAID, SELFPAY | PROVIDERS: PCP Family Medicine; Visit Provider Anesthesiology Pain Medicine | DX: G89.29 Other chronic pain (principal); M47.812 Spondylosis without myelopathy or radiculopathy, cervical region; M54.12 Radiculopathy, cervical region; M25.562 Pain in left knee; M25.512 Pain in left shoulder; M19.90 Unspecified osteoarthritis, unspecified site; M19.019 Primary osteoarthritis, unspecified shoulder | CPT/HCPCS: 20610; 99214; J1030; J3490 ==

== ENCOUNTER 2020-11-01 10:05 | Outpatient (CLI) | payer OTHER, SELFPAY ==
--- NOTE | 2020-11-01 10:14 | XR_ITS ---
WS: [id number] Lumbar spine, 3 views, 11/01/2020 Clinical Data: LUMBAR OSTEOARTHRITIS DDD Comparison: None. Findings: No compression fractures or subluxation is seen. There is a posterior lumbar fusion with bilateral pe dicle screws and connecting rods at L5-S1. There is artificial disc material at L5-S1. Minimal osteop hytes are seen at L1-L4.. The transverse processes and SI joints are normal. There is calcification in the wall of the abdominal aorta but no aneurysm. XR/XR lumbar spine 2-3V* [id number] Impression: 1. Intact posterior lumbar fusion at L5-S1. 2. Artificial disc material at L5-S1. 3. Minimal osteoarthritis L1-L4.
== END 2020-11-01 10:06 | disposition home or self-care (01) ==
LOC: RAD 10:11
PROVIDERS: PCP Family Medicine; Visit Provider Dermatology
DX: M47.816 Spondylosis without myelopathy or radiculopathy, lumbar region (principal); M51.36 Other intervertebral disc degeneration, lumbar region; M43.27 Fusion of spine, lumbosacral region
CPT/HCPCS: 72100

== ENCOUNTER 2020-11-06 15:59 | Outpatient (CLI) | payer MEDICAID, SELFPAY ==
--- NOTE | 2020-11-06 16:05 | XR_ITS ---
WS: [id number] Bilateral knees, upright. TECHNIQUE: Single upright AP films of the knees are obtained. COMPARISON: None. Very mild narrowing of the medial compartments. No loose bodies or fractures. No significant joint li ne osteophytes. XR/[place] [id number] IMPRESSION: Minimal medial compartment joint space narrowing.
== END 2020-11-06 16:00 | disposition home or self-care (01) ==
PROVIDERS: PCP Family Medicine; Visit Provider Anesthesiology Pain Medicine
DX: M19.90 Unspecified osteoarthritis, unspecified site (principal)
CPT/HCPCS: 73565

== ENCOUNTER → 2020-11-07 12:35 | Outpatient (BNVA) | payer MEDICAID, SELFPAY | PROVIDERS: PCP Family Medicine; Visit Provider Anesthesiology Pain Medicine | DX: M47.812 Spondylosis without myelopathy or radiculopathy, cervical region (principal); F17.210 Nicotine dependence, cigarettes, uncomplicated | CPT/HCPCS: 64633; 64634; J1030 ==

== ENCOUNTER → 2021-01-31 12:09 | Outpatient (BNVA) | payer MEDICAID, SELFPAY | PROVIDERS: PCP Family Medicine; Visit Provider Family Medicine | DX: I10 Essential (primary) hypertension (principal); E03.9 Hypothyroidism, unspecified; E78.00 Pure hypercholesterolemia, unspecified | CPT/HCPCS: 80053; 80061; 82043; 84443; 85025 ==

== ENCOUNTER 2021-03-06 11:27 | Outpatient (CLI) | payer MEDICAID, SELFPAY ==
--- NOTE | 2021-03-06 11:33 | XR_ITS ---
WS: [id number] LUMBAR SPINE TECHNIQUE: 5 views of the lumbar spine CLINICAL INFORMATION: M47.816 - Spondylosis without myelopathy or radiculopathy... COMPARISON: November 01, 2020 FINDINGS: Five [id number] lumbar vertebral bodies. Prior pedicle screw fixation L5-S1 with interconnecting rods. Hardware appears intact. Interbody fusion graft L5-S1. Trace retrolisthesis L4 on L5 is unchan ged. No acute compression fractures. Aortic calcification. No other significant changes compared to p revious XR/XR lumbar spine min 4V [id number] IMPRESSION: Stable postoperative changes L5-S1 with interbody fusion graft. Hardware appear s intact.
--- NOTE | 2021-03-06 11:33 | XR_ITS ---
WS: [id number] HIPS BILATERAL TECHNIQUE: 4 views, AP and lateral CLINICAL INFORMATION: M19.90 - Unspecified osteoarthritis, unspecified site COMPARISON: None. FINDINGS: Mild degenerative narrowing both hips. No acute fractures. Normal anatomic alignment. Normal visualiz ed pubic rami. Vascular calcification. Osteopenia. XR/XR hip BI 3-4V wo/w pel [id number] IMPRESSION: Mild degenerative arthritis both hips with joint space narrowing. Tonnis classification LEFT: grade 1: sclerosis of femoral head and acetabulum o r slight joint space narrowing or slight lippig at joint margins Tonnis classification RIGHT: grade 1: sclerosis of femoral head and acetabulum or slight joint space narrowing or slight lippig at joint margins
== END 2021-03-06 11:28 | disposition home or self-care (01) ==
PROVIDERS: PCP Family Medicine; Visit Provider Anesthesiology Pain Medicine
DX: M47.816 Spondylosis without myelopathy or radiculopathy, lumbar region (principal); M16.0 Bilateral primary osteoarthritis of hip
CPT/HCPCS: 72110; 73522

== ENCOUNTER 2021-03-27 16:41 | Outpatient (CLI) | payer MEDICAID, SELFPAY ==
--- NOTE | 2021-03-27 16:45 | MR_ITS ---
WS: [id number] MRI LEFT KNEE NONCONTRAST TECHNIQUE: Axial PD, coronal PD fat sat, coronal PD, sagittal PD, and sagittal PD fat-sat images obta ined. CLINICAL INFORMATION: M25.562 - Pain in left knee COMPARISON: None. FINDINGS: Distal quadriceps and patella tendons are intact. Hypertrophic patella. Normal ACL and PCL. Chronic t hinning of the medial and lateral meniscus. No acute appearing meniscal tears. Slight peripheral extr usion of the lateral meniscus. Moderate degenerative narrowing medial joint compartment with grade II to III chondromalacia. Small amount of subchondral cystic change involving the mid left tibial plate au near the tibial spines. Normal medial and lateral collateral ligaments. Normal popliteal fossa. Moderate chondromalacia [place]. Normal medial and lateral patellar retinaculum. MR/MR knee LT wo con* [id number] IMPRESSION: 1. Moderate tricompartmental degenerative arthritis worse in the medial joint compartment. 2. 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 No acute appearing meniscal tears. 3. Normal ACL and PCL. 4. Moderate chondromalacia patella. 5. Small amount of subchondral cystic change with edema involving the lateral tibial plateau near the tibial spines. Outbridge grading:
== END 2021-03-27 16:42 | disposition home or self-care (01) ==
LOC: RADSHAW 16:48
PROVIDERS: PCP Family Medicine; Visit Provider Anesthesiology Pain Medicine
DX: M17.12 Unilateral primary osteoarthritis, left knee (principal); M22.42 Chondromalacia patellae, left knee; R60.0 Localized edema
CPT/HCPCS: 73721

== ENCOUNTER → 2021-04-22 14:29 | Outpatient (BNVA) | payer SELFPAY | PROVIDERS: PCP Family Medicine; Visit Provider Registered Nurse Neonatal Intensive Care | DX: M54.9 Dorsalgia, unspecified (principal); M62.838 Other muscle spasm | CPT/HCPCS: 81000 ==

== ENCOUNTER → 2021-05-01 11:49 | Outpatient (BNVA) | payer OTHER, SELFPAY | PROVIDERS: PCP Family Medicine; Visit Provider Counselor Mental Health | DX: F41.1 Generalized anxiety disorder (principal); F43.12 Post-traumatic stress disorder, chronic; F33.2 Major depressive disorder, recurrent severe without psychotic features | CPT/HCPCS: 90834 ==

== ENCOUNTER → 2021-06-25 11:25 | Outpatient (BNVA) | payer MEDICAID, SELFPAY | PROVIDERS: PCP Family Medicine; Visit Provider Anesthesiology Pain Medicine | DX: G89.29 Other chronic pain (principal); M47.812 Spondylosis without myelopathy or radiculopathy, cervical region; M25.512 Pain in left shoulder; M54.50 Low back pain, unspecified; M16.0 Bilateral primary osteoarthritis of hip; M25.562 Pain in left knee; F17.210 Nicotine dependence, cigarettes, uncomplicated | CPT/HCPCS: 99214 ==

== ENCOUNTER → 2021-07-04 08:49 | Outpatient (BNVA) | payer MEDICAID, SELFPAY | PROVIDERS: PCP Family Medicine; Visit Provider Counselor Mental Health | DX: F41.1 Generalized anxiety disorder (principal); F43.12 Post-traumatic stress disorder, chronic; F33.2 Major depressive disorder, recurrent severe without psychotic features | CPT/HCPCS: 90791 ==

== ENCOUNTER → 2021-07-22 10:05 | Outpatient (BNVA) | payer MEDICAID, SELFPAY | PROVIDERS: PCP Family Medicine; Visit Provider Anesthesiology Pain Medicine | DX: G89.29 Other chronic pain (principal); M54.12 Radiculopathy, cervical region; M47.812 Spondylosis without myelopathy or radiculopathy, cervical region; M25.562 Pain in left knee; M25.512 Pain in left shoulder; M19.019 Primary osteoarthritis, unspecified shoulder; M16.0 Bilateral primary osteoarthritis of hip; M79.671 Pain in right foot; M79.641 Pain in right hand; F17.210 Nicotine dependence, cigarettes, uncomplicated | CPT/HCPCS: 99213 ==

== ENCOUNTER 2021-07-24 08:11 | Outpatient (CLI) | payer MEDICAID, SELFPAY ==
--- NOTE | 2021-07-24 08:29 | MM_ITS ---
WS: [id number] BILATERAL SCREENING DIGITAL BREAST TOMOSYNTHESIS MAMMOGRAM WITH CAD HISTORY: SCREENING COMPARISON: 01/05/2020, 01/13/2017 Bilateral CC and MLO views with tomosynthesis and synthetic mammography submitted. Computer aided det ection analyzed. Breast composition: The breasts are heterogeneously dense, which may obscure small masses. No suspici ous masses, microcalcifications or architectural distortion. MM/[place] [id number] IMPRESSION: BI-RADS: 2-Benign FOLLOW UP: 1 Year Follow-up
== END 2021-07-24 08:12 | disposition home or self-care (01) ==
PROVIDERS: PCP Family Medicine; Visit Provider Family Medicine
DX: Z12.31 Encounter for screening mammogram for malignant neoplasm of breast (principal)
CPT/HCPCS: 77063; 77067

== ENCOUNTER → 2021-07-26 12:42 | Outpatient (BNVA) | payer OTHER, SELFPAY | PROVIDERS: PCP Family Medicine; Visit Provider Psychiatry & Neurology Psychiatry | DX: F41.1 Generalized anxiety disorder (principal); F43.12 Post-traumatic stress disorder, chronic; F33.2 Major depressive disorder, recurrent severe without psychotic features; F17.200 Nicotine dependence, unspecified, uncomplicated | CPT/HCPCS: 99214 ==

== ENCOUNTER → 2021-07-30 12:08 | Outpatient (BNVA) | payer OTHER, SELFPAY | PROVIDERS: PCP Family Medicine; Visit Provider Family Medicine | DX: I10 Essential (primary) hypertension (principal); E03.9 Hypothyroidism, unspecified; E78.00 Pure hypercholesterolemia, unspecified; R73.9 Hyperglycemia, unspecified | CPT/HCPCS: 80053; 80061; 83036; 84443 ==

== ENCOUNTER → 2021-07-31 13:53 | Outpatient (BNVA) | payer OTHER, SELFPAY | PROVIDERS: PCP Family Medicine; Visit Provider Counselor Mental Health | DX: F41.9 Anxiety disorder, unspecified (principal); F32.9 Major depressive disorder, single episode, unspecified | CPT/HCPCS: 90834 ==

== ENCOUNTER → 2021-08-05 10:01 | Outpatient (BNVA) | payer MEDICAID, SELFPAY | PROVIDERS: PCP Family Medicine; Referring Provider Anesthesiology Pain Medicine; Visit Provider Specialist | DX: M54.9 Dorsalgia, unspecified (principal); G89.29 Other chronic pain; M54.50 Low back pain, unspecified; M79.605 Pain in left leg; M25.552 Pain in left hip | CPT/HCPCS: 73502; 99204 ==

== ENCOUNTER → 2021-08-13 10:28 | Outpatient (BNVA) | payer MEDICAID, SELFPAY | PROVIDERS: PCP Family Medicine; Visit Provider Orthopaedic Surgery | DX: M54.12 Radiculopathy, cervical region (principal); M54.50 Low back pain, unspecified; Z98.1 Arthrodesis status | CPT/HCPCS: 72050; 72110; 99204 ==

== ENCOUNTER → 2021-08-16 13:53 | Outpatient (BNVA) | payer OTHER, SELFPAY | PROVIDERS: PCP Family Medicine; Visit Provider Counselor Mental Health | DX: F32.9 Major depressive disorder, single episode, unspecified (principal); F41.9 Anxiety disorder, unspecified | CPT/HCPCS: 90791 ==

== ENCOUNTER 2021-08-22 06:00 | Outpatient (RCR) | payer MEDICAID, SELFPAY | END 2021-09-12 23:59 | disposition home or self-care (01) | LOC: SPT 06:00 | PROVIDERS: PCP Family Medicine; Referring Provider Orthopaedic Surgery; Visit Provider Orthopaedic Surgery | DX: G89.29 Other chronic pain (principal); M54.2 Cervicalgia; M54.9 Dorsalgia, unspecified | CPT/HCPCS: 97162 ==

== ENCOUNTER → 2021-09-04 14:10 | Outpatient (BNVA) | payer OTHER, SELFPAY | PROVIDERS: PCP Family Medicine; Visit Provider Counselor Mental Health | DX: F32.9 Major depressive disorder, single episode, unspecified (principal); F41.9 Anxiety disorder, unspecified | CPT/HCPCS: 90834 ==

== ENCOUNTER → 2021-09-11 09:06 | Outpatient (BNVA) | payer MEDICAID, SELFPAY | PROVIDERS: PCP Family Medicine; Visit Provider Anesthesiology Pain Medicine | DX: G89.29 Other chronic pain (principal); M54.12 Radiculopathy, cervical region; M47.812 Spondylosis without myelopathy or radiculopathy, cervical region; M25.512 Pain in left shoulder; M25.562 Pain in left knee; M19.012 Primary osteoarthritis, left shoulder; M16.0 Bilateral primary osteoarthritis of hip; F17.210 Nicotine dependence, cigarettes, uncomplicated | CPT/HCPCS: 99214 ==

== ENCOUNTER 2021-09-26 13:17 | Outpatient (CLI) | payer MEDICAID, SELFPAY ==
--- NOTE | 2021-09-26 13:00 | MR_ITS ---
WS: [id number] MRI HEAD WITH CONTRAST TECHNIQUE: Sagittal T1, T2 axial, T2 axial FLAIR, axial susceptibility weighted imaging, axial diffus ion weighted images, and coronal T2 images were obtained. Pre and post-T1 axial and post T1 coronal i mages. ADC and FSPGR images. CLINICAL INFORMATION: vision changes COMPARISON: None. FINDINGS: No evidence of restricted diffusion to suggest acute ischemia. Ventricular system and basal cisterns are patent. Mild small vessel changes. Mild parenchymal volume loss. Normal posterior fossa. Normal v ascular flow voids at the skull base. No extra-axial fluid collections. No evidence of mass or mass e ffect. Mild mucosal thickening ethmoid air cells. Mastoid air cells well aerated. Postoperative changes partially visualized in the upper cervical spine. Normal posterior nasopharynx. Normal parapharyngeal fat. No hemosiderin on the susceptibly weighted images. Normal optic chiasm an d pituitary infundibulum. Normal cavernous sinuses and Meckel's cave. No abnormal gadolinium enhancement. Normal dural venous sinuses. MR/MR head wo/w con [id number] IMPRESSION: 1. No evidence of restricted diffusion to suggest acute ischemia. 2. Mild small vessel changes with mild parenchymal volume loss. 3. No hemosiderin on susceptibly weighted images. 4. No abnormal gadolinium enhancement. 5. Normal optic chiasm and pituitary infundibulum. Normal cavernous sinuses an d Meckel's cave. 6. Mild mucosal thickening in the paranasal sinuses. 7. No other significant findings.
[2021-09-26] MEDS: gadobenate dimeglumine 20 mL vial IV (14:07)
== END 2021-09-26 13:18 | disposition home or self-care (01) ==
PROVIDERS: PCP Family Medicine; Visit Provider Family Medicine
DX: H53.9 Unspecified visual disturbance (principal)
CPT/HCPCS: 70553

== ENCOUNTER → 2021-10-01 14:24 | Outpatient (BNVA) | payer MEDICAID, SELFPAY | PROVIDERS: PCP Family Medicine; Visit Provider Anesthesiology Pain Medicine | DX: M54.16 Radiculopathy, lumbar region (principal); M54.2 Cervicalgia; F17.210 Nicotine dependence, cigarettes, uncomplicated; Z79.891 Long term (current) use of opiate analgesic | CPT/HCPCS: 64483; 64484; J1100; J3490 ==

== ENCOUNTER 2021-10-14 06:00 | Outpatient (RCR) | payer MEDICAID, SELFPAY | END 2021-11-13 23:59 | disposition home or self-care (01) | LOC: SPT 06:00 | PROVIDERS: PCP Family Medicine; Referring Provider Orthopaedic Surgery; Visit Provider Orthopaedic Surgery | DX: M25.512 Pain in left shoulder (principal); M54.12 Radiculopathy, cervical region | CPT/HCPCS: 97110 ==

== ENCOUNTER → 2021-10-15 10:03 | Outpatient (BNVA) | payer MEDICAID, SELFPAY | PROVIDERS: PCP Family Medicine; Visit Provider Anesthesiology Pain Medicine | DX: G89.29 Other chronic pain (principal); M54.50 Low back pain, unspecified; M54.12 Radiculopathy, cervical region; M19.012 Primary osteoarthritis, left shoulder; M16.0 Bilateral primary osteoarthritis of hip; M25.562 Pain in left knee; M47.812 Spondylosis without myelopathy or radiculopathy, cervical region; F17.210 Nicotine dependence, cigarettes, uncomplicated; Z79.891 Long term (current) use of opiate analgesic | CPT/HCPCS: 99214 ==

== ENCOUNTER → 2021-10-30 13:59 | Outpatient (BNVA) | payer MEDICAID, SELFPAY | PROVIDERS: PCP Family Medicine; Visit Provider Internal Medicine Cardiovascular Disease | DX: I11.0 Hypertensive heart disease with heart failure (principal); I50.9 Heart failure, unspecified; F17.219 Nicotine dependence, cigarettes, with unspecified nicotine-induced disorders | CPT/HCPCS: 99214 ==

== ENCOUNTER 2021-11-13 15:59 | Emergency (ER) | payer MEDICAID, SELFPAY ==
[2021-11-13 16:10] VITALS: BP 114/67; PULSE 107; RESP 14; TEMP 37.1; O2SAT 97; BMI 28.1
--- NOTE | 2021-11-13 16:17 | ECG_ITS ---
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 Measurements Intervals [place] Rate: 72 P: 67 WI: 138 QRS: 47 QRSD: 92 T: 65 QT: 374 QTc: 412 Interpretive Statements SINUS RHYTHM Compared to ECG 09/06/2020 17:33:17 Sinus bradycardia no longer present Electronically Signed On 11-13-2021 16:27:25 CDT by Roxy Fregoso M.D. [id number]
--- NOTE | 2021-11-13 16:18 | XRR_ITS ---
PROCEDURE INFORMATION: Exam: XR Chest Exam date and time: 11/13/2021 4:54 PM Age: 61 years old Clinical indication: Chest wall pain; Additional info: Chest pain TECHNIQUE: Imaging protocol: Radiologic exam of the chest. Views: 1 view. COMPARISON: CR XR chest 1V portable [id number] 09/06/2020 4:56 PM FINDINGS: Lungs: Unremarkable. No consolidation. Pleural spaces: Unremarkable. No pleural effusion. No pneumothorax. Heart/Mediastinum: Unremarkable. No cardiomegaly. Bones/joints: Unremarkable. XR/XR chest 1V portable [id number] IMPRESSION: No acute findings.
[2021-11-13] MEDS: aspirin 81 mg Chew Tablet 324 MG PO (16:54)
[2021-11-13 17:09] VITALS: BP 150/81; PULSE 75; RESP 13; O2SAT 97
[2021-11-13 17:30] LABS: Basophils # 0.1 10^3/uL (0.0-0.1); Eosinophils # 0.3 10^3/uL (0.0-0.8); Eosinophils % 2.6 %; Hematocrit 41.2 % (37.0-47.0); Hemoglobin 13.4 g/dL (11.5-15.3); Lymphocytes # 3.2 10^3/uL (0.8-4.8); Lymphocytes % 28.9 %; Mean Corpuscular HGB Conc 32.5 g/dL (30.0-36.0); Mean Corpuscular Hemoglobin 32.4 pg (28.0-34.0); Mean Corpuscular Volume 99.5 fl (81-99); Mean Platelet Volume 9.4 fL (7.4-10.4); Monocytes # 0.8 10^3/uL (0.2-0.9); Monocytes % 7.6 %; Neutrophils # 6.53 10^3/uL (1.8-7.7); Neutrophils % 59.5 %; Nucleated Red Blood Cells % 0 %; Platelet Count 324 10^3/cmm (130-400); Red Blood Count 4.14 10^6/uL (4.1-5.3); Red Cell Distribution Width 14.2 % (12.1-15.1)
--- NOTE | 2021-11-13 17:43 | ED_ITS ---
Documented by User: Benson Caputo DO 11/15/21 06:12 HPI - Chest Pain General: Chief Complaint: Chest Pain Stated Complaint: chest pains and abd pains Time Seen by Provider: 11/13/21 16:18 Source: patient Mode of arrival: ambulatory Limitations: no limitations History of Present Illness: 61-year-old female presents emergency room complaining of chest and abdominal discomfort. She was short of breath last night. She is had a little bit of chest discomfort today. No radiation of the pain. Patient had a cardiac stress test in April 2020 that showed evidence of old infarction but no current ischemia. On May 05, 2020 patient underwent angiogram which did not show any significant disease and was thought to have nonischemic cardiomyopathy. MD complaint: chest pain Onset (ago): hour(s) Timing of current episode: episodic Prior episodes: Yes Onset: during rest Pain location: substernal Pain radiation: none Severity: mild Quality: aching and heaviness Relieving factors: nothing Exacerbating factors: nothing Associated symptoms: Deny abdominal pain, diaphoresis, dyspnea, fever(s), leg edema, nausea, palpitations, sense of impending doom, syncope or vomiting Treatment prior to arrival: none Review of Systems Const: Reports: chills; Denies: fever(s), fatigue, malaise or diaphoresis ENMT: Denies: throat pain, ear or mastoid pain, nasal discharge or nasal congestion Card: Reports: chest pain and edema; Denies: palpitations or syncope Resp: Denies: dyspnea GI: Denies: abdominal pain, nausea or vomiting : Denies: flank pain, difficulty voiding, dysuria, urinary frequency or urinary urgency Skin/Breast: Denies: rash or pruritus PFSH ED PFSH: Medical History Anxiety Back pain, chronic CHF (NYHA class III, ACC/AHA stage C) LVEF 35% Depression History of rheumatic fever as a child Hypercholesterolemia Hypertension Hypothyroidism LBBB (left bundle branch block) Multiple sites, insect bite, nonvenomous Osteoarthritis Psychiatric care Unstable angina Urinary incontinence, mixed Surgical History H/O left wrist surgery H/O Spinal surgery ALDF and ACDF. H/O vaginal surgery Urethral sling History of 2 sections S/P colonoscopy S/P excision of lipoma Right buttocks. S/P lumpectomy, left breast S/P tonsillectomy Family History Mother Anemia Alzheimer disease Father Heart disease Hypertension Kidney disease COPD (chronic obstructive pulmonary disease) Social History Smoking and tobacco status: current every day smoker cigarettes Packs smoked per day: 1 Years cigarettes smoked: 46 [ Other cigarette details: started age 15] and e-cigarettes E-Cigarette Details: vaporizer device and with nicotine E- cig/vape details: Refill/2-3 weeks Quit status (tobacco): quit date established Planned quit date: 11/18/22 Second hand smoke exposure: Yes Smoking risk assessment/counseling performed?: No Alcohol intake: current Alcohol intake frequency: few times a week Alcohol type: hard liquor Desire information about alcohol rehabilitation?: No Counseling given: No Desire information about substance/drug rehabilitation?: No Counseling given: No History of recent travel: No Physical Exam Const: GENERAL APPEARANCE: cooperative and comfortable ORIENTATIO N/CONSCIOUSNESS: Yes awake, Yes oriented to person, Yes oriented to place and Yes oriented to time HENMT: COMMON NORMALS: normocephalic, atraumatic and hearing grossly normal bilaterally HEAD & SCALP: normocephalic and atraumatic Resp: COMMON NORMALS: normal respiratory effort, No retractions, No use of accessory muscles and clear to auscultation bilaterally AUSCULTATION: clear to auscultation bilaterally Cardio: COMMON NORMALS: regular rate, regular rhythm and No murmurs present (Cardio) RATE: regular rate RHYTHM: regular rhythm GI: COMMON NORMALS: Soft to palpation and No hepatosplenomegaly present AUSCULTATION: Yes normoactive bowel sounds PALPATION: Yes Soft to palpation, No Tenderness to palpation present (GI), No Guarding due to palpation present (GI) and Yes No hepatosplenomegaly present Extremity: COMMON NORMALS: normal to inspection, capillary refill normal, no clubbing, cyanosis or edema, no calf tenderness and no pedal edema Neuro: SENSORIUM/ORIENTATION: Yes oriented to person, Yes oriented to place and Yes oriented to time Skin: COMMON NORMALS: no rashes or lesions noted GENERAL SKIN EXAM: no rashes or lesions noted Course Vital Signs: Vital signs: Vital Signs Temperature 98.7 F 11/13/21 16:10 Pulse Rate 68 11/13/21 20:40 Respiratory Rate 12 11/13/21 20:40 Blood Pressure 141/82 11/13/21 20:40 Pulse Oximetry 95 11/13/21 20:40 Oxygen Delivery Me thod 11/13/21 17:09 MDM - Chest Pain Medical Decision Making Care signed out to Dr. Valentin at change of shift. See final notes for diagnosis and disposition. Patient presents for chest pains atypical in nature initial repeat troponins are negative patient is stable for discharge she is to follow-up with her PCP and return if worsening she understands agrees to plan. Lab Data : 11/13/21 17:20 11/13/21 17:20 Radiology Impressions Chest X-Ray 11/13/21 16:18 IMPRESSION: No acute findings. Laboratory Results WBC 11.0 10^3/uL (4.0-10.0) H 11/13/21 17:20 RBC 4.14 10^6/uL (4.1-5.3) 11/13/21 17:20 Hgb 13.4 g/dL (11.5-15.3) 11/13/21 17:20 Hct 41.2 % (37.0-47.0) 11/13/21 17:20 MCV 99.5 fl (81-99) H 11/13/21 17:20 MCH 32.4 pg (28.0-34.0) 11/13/21 17:20 MCHC 32.5 g/dL (30.0-36.0) 11/13/21 17:20 RDW 14.2 % (12.1-15.1) 11/13/21 17:20 Plt Count 324 10^3/cmm (130-400) 11/13/21 17:20 MPV 9.4 fL (7.4-10.4) 11/13/21 17:20 Neut % (Auto) 59.5 % 11/13/21 17:20 Lymph % (Auto) 28.9 % 11/13/21 17:20 [place] % (Auto) 7.6 % 11/13/21 17:20 Eos % (Auto) 2.6 % 11/13/21 17:20 Baso % (Auto) 1.0 % 11/13/21 17:20 Neut # (Auto) 6.53 10^3/uL (1.8-7.7) 11/13/21 17:20 Lymph # (Auto) 3.2 10^3/uL (0.8-4.8) 11/13/21 17:20 [place] # (Auto) 0.8 10^3/uL (0.2-0.9) 11/13/21 17:20 Eos # (Auto) 0.3 10^3/uL (0.0-0.8) 11/13/21 17:20 Baso # (Auto) 0.1 10^3/uL (0.0-0.1) 11/13/21 17:20 Nucleated RBC % (auto) 0 % 11/13/21 17:20 Nucleated RBCs # 0.0 /100WBC 11/13/21 17:20 Sodium 136 mmol/L (136-145) 11/13/21 17:20 Potassium 4.8 mmol/L (3.5-5.1) 11/13/21 17:20 Chloride 102 mmol/L (98-107) 11/13/21 17:20 Carbon Dioxide 21 mmol/L (22-29) L 11/13/21 17:20 Anion Gap 17.8 (5-19) 11/13/21 17:20 BUN 25 mg/dL (8-23) H 11/13/21 17:20 Creatinine 1.0 mg/dL (0.5-0.9) H 11/13/21 17:20 GFR Calculation 56.4 mL/min (90-130) L 11/13/21 17:20 Glucose 96 mg/dL (65-115) 11/13/21 17:20 Calculated Osmolality 286 mOsm/kg (285-295) 11/13/21 17:20 Calcium 9.5 mg/dL (8.5-10.5) 11/13/21 17:20 Troponin T Baseline 6 ng/L (0-10) 11/13/21 17:20 Troponin T 120 Minute 7.32 ng/L (0-10) 11/13/21 19:04 Delta Troponin T 1.32 ABS# (0-10) 11/13/21 19:04 Discharge Plan Discharge Patient Disposition: Home Clinical Impression: Chest pain Condition: Stable Prescriptions: No Action mupirocin 2 % ointment 1 applic topical BID Qty: 22 1RF Rx Instructions: to open areas on arms,legs until healed nitroglycerin 0.4 mg tablet, sublingual 0.4 mg sublingual Q5M PRN (Reason: chest pain) Qty: 25 2RF Rx Instructions: do not exceed 3 doses per episode spironolactone 25 mg tablet 12.5 mg PO DAILY PRN (Reason: weight gain) Qty: 45 1RF cyclobenzaprine 7.5 mg tablet 7.5 mg PO TID Qty: 15 0RF nicotine [Nicoderm CQ] 21 mg/24 hr patch 24 hour 1 patch transdermal DAILY Qty: 28 2RF levothyroxine 75 mcg tablet 75 mcg PO DAILY 30 Days Qty: 30 5RF atorvastatin 80 mg tablet 80 mg PO DAILY Qty: 30 5RF dexamethasone sodium phos (PF) 10 mg/mL solution 8 mg Infiltration ONCE Qty: 0.8 0RF cyclobenzaprine 10 mg tablet 10 mg PO TID PRN (Reason: muscle spasm) Qty: 60 0RF isosorbide mononitrate 10 mg tablet 5 mg PO BID Rx Instructions: take doses 7 hrs apart sertraline 100 mg tablet 200 mg PO DAILY Qty: 60 2RF hydroxyzine HCl 50 mg tablet 50 mg PO QID PRN (Reason: anxiety) Qty: 120 2RF bupropion HCl [Wellbutrin XL] 150 mg tablet extended release 24 hr 150 mg PO QAM Qty: 30 2RF (DME) turmeric/curcumin capsule 0 .Route .MEDSUPPLY Entresto 24-26 mg tablet 1 tab PO BID Qty: 180 2RF tramadol 50 mg tablet 50 mg PO BID PRN (Reason: pain) Qty: 45 0RF gabapentin 300 mg capsule See Rx Instructions .ROUTE .COMPLEX Qty: 90 0RF Dose Instruction: TAKE 1 CAPSULE BY MOUTH THREE TIMES DAILY NEEDED FOR PAIN (730AM, 2PM, 10PM) Rx Instructions: TAKE 1 CAPSULE BY MOUTH THREE TIMES DAILY NEEDED FOR PAIN (730AM, 2PM, 10PM) metoprolol succinate 25 mg tablet extended release 24 hr 12.5 mg PO DAILY Qty: 45 2RF calcium carbonate-vitamin D3 600 mg(1,500mg) -200 unit Tablet 1 tab PO DAILY@0730 aspirin 81 mg Tablet,Delayed Release (Dr/Ec) 81 mg PO DAILY@0730 vitamin B complex Tablet 1 tab PO DAILY@0730 One-A-Day Women's 50 Plus 1 tab PO DAILY@0730 Discharge Orders: Discharge ED (Routine); Ordered 11/13/21 Ordered By: Michael Valentin Referrals: Mariaa Smith DO [Primary Care Provider] - 1-3 days Discharge Diet: Advance as tolerated Discharge Activity: Resume usual activity Patient Instructions: Chest Pain (ED) Coding Level of Care Code ED Sales Service Assistant for Chg Fwd Exam Detailed Documented by User: Michael Valentin MD 11/13/21 20:10 HPI - Chest Pain General: Chief Complaint: Chest Pain Stated Complaint: chest pains and abd pains Time Seen by Provider: 11/13/21 16:18 PFSH ED PFSH: Medical History Anxiety Back pain, chronic CHF (NYHA class III, ACC/AHA stage C) LVEF 35% Depression History of rheumatic fever as a child Hypercholesterolemia Hypertension Hypothyroidism LBBB (left bundle branch block) Multiple sites, insect bite, nonvenomous Osteoarthritis Psychiatric care Unstable angina Urinary incontinence, mixed Surgical History H/O left wrist surgery H/O Spinal surgery ALDF and ACDF. H/O vaginal surgery Urethral sling History of 2 sections S/P colonoscopy S/P excision of lipoma Right buttocks. S/P lumpectomy, left breast S/P tonsillectomy Family History Mother Anemia Alzheimer disease Father Heart disease Hypertension Kidney disease COPD (chronic obstructive pulmonary disease) Social History Smoking and tobacco status: current every day smoker cigarettes Packs smoked per day: 1 Years cigarettes smoked: 46 [ Other cigarette details: started age 15] and e-cigarettes E-Cigarette Details: vaporizer device and with nicotine E- cig/vape details: Refill/2-3 weeks Quit status (tobacco): quit date established Planned quit date: 11/18/22 Second hand smoke exposure: Yes Smoking risk assessment/counseling performed?: No Alcohol intake: current Alcohol intake frequency: few times a week Alcohol type: hard liquor Desire information about alcohol rehabilitation?: No Counseling given: No Desire information about substance/drug rehabilitation?: No Counseling given: No History of recent travel: No Course Vital Signs: Vital signs: Vital Signs Temperature 98.7 F 11/13/21 16:10 Pulse Rate 68 11/13/21 20:40 Respiratory Rate 12 11/13/21 20:40 Blood Pressure 141/82 11/13/21 20:40 Pulse Oximetry 95 11/13/21 20:40 Oxygen Delivery Me thod 11/13/21 17:09 MDM - Chest Pain Medical Decision Making Patient presents for chest pains atypical in nature initial repeat troponins are negative patient is stable for discharge she is to follow-up with her PCP and return if worsening she understands agrees to plan. Lab Data : 11/13/21 17:20 11/13/21 17:20 Radiology Impressions Chest X-Ray 11/13/21 16:18
[2021-11-13 17:50] LABS: Troponin(5th) Baseline 6 ng/L (0-10)
[2021-11-13 17:51] LABS: Anion Gap 17.8 (5-19); Blood Urea Nitrogen 25 mg/dL (8-23); Calcium 9.5 mg/dL (8.5-10.5); Carbon Dioxide 21 mmol/L (22-29); Chloride 102 mmol/L (98-107); Glomerular Filtration Rate 56.4 mL/min (90-130); Glucose 96 mg/dL (65-115); Osmolality Calculated 286 mOsm/kg (285-295); Potassium 4.8 mmol/L (3.5-5.1); Sodium 136 mmol/L (136-145)
--- NOTE | 2021-11-13 18:18 | ECG_ITS ---
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 Measurements Intervals [place] Rate: 60 P: 67 [place]: 155 QRS: 56 QRSD: 90 T: 62 QT: 404 QTc: 405 Interpretive Statements SINUS RHYTHM Compared to ECG 11/13/2021 16:17:12 No significant changes Electronically Signed On 11-14-2021 6:09:39 CDT by Roxy Fregoso M.D. [id number]
[2021-11-13 19:42] LABS: Troponin 5 2HR 7.32 ng/L (0-10); Troponin 5 2HR Delta 1.32 ABS# (0-10)
[2021-11-13 20:30] VITALS: BP 141/82; PULSE 68; RESP 12; O2SAT 95
[2021-11-13 20:40] VITALS: BP 141/82; PULSE 68; RESP 12; O2SAT 95
== END 2021-11-13 20:41 | disposition home or self-care (01) ==
PROVIDERS: Family Medicine; Emergency Provider Emergency Medicine; PCP Family Medicine
DX: R07.9 Chest pain, unspecified (principal); F17.210 Nicotine dependence, cigarettes, uncomplicated; I11.0 Hypertensive heart disease with heart failure; I50.9 Heart failure, unspecified
CPT/HCPCS: 71045; 80048; 84484; 85025; 93005; 99285

== ENCOUNTER 2021-11-14 06:00 | Outpatient (RCR) | payer MEDICAID, SELFPAY | END 2021-12-13 23:59 | disposition home or self-care (01) | LOC: SPT 06:00 | PROVIDERS: PCP Family Medicine; Visit Provider Orthopaedic Surgery | DX: M25.112 Fistula, left shoulder (principal); M54.12 Radiculopathy, cervical region | CPT/HCPCS: 97110 ==

== ENCOUNTER → 2021-11-26 10:49 | Outpatient (BNVA) | payer MEDICAID, SELFPAY | PROVIDERS: PCP Family Medicine; Visit Provider Nurse Practitioner Family | DX: D48.9 Neoplasm of uncertain behavior, unspecified (principal); L57.0 Actinic keratosis; L82.0 Inflamed seborrheic keratosis; F42.4 Excoriation (skin-picking) disorder; Z85.828 Personal history of other malignant neoplasm of skin; L81.4 Other melanin hyperpigmentation; L82.1 Other seborrheic keratosis; D18.01 Hemangioma of skin and subcutaneous tissue; R20.0 Anesthesia of skin; R20.2 Paresthesia of skin | CPT/HCPCS: 36415; 82607; 82746; 85651 ==

== ENCOUNTER → 2022-04-24 11:57 | Outpatient (BNVA) | payer MEDICAID, SELFPAY | PROVIDERS: PCP Family Medicine; Visit Provider Family Medicine | DX: E03.9 Hypothyroidism, unspecified (principal); I10 Essential (primary) hypertension | CPT/HCPCS: 80053; 84443 ==

== ENCOUNTER 2022-05-09 13:51 | Outpatient (CLI) | payer MEDICAID, SELFPAY ==
--- NOTE | 2022-05-09 13:45 | MR_ITS ---
WS: [id number] MRI LUMBAR SPINE NONCONTRAST HISTORY: low back pain/BLE weakness, numbness, prior lumbar surgery. COMPARISON: No similar studies. TECHNIQUE: Sagittal and axial multisequence imaging is submitted. Prior anterior cervical fusion hardware. Mild increase in thoracic kyphosis. Posterior lumbar alignment is normal. Posterior lumbar fusion with interbody spacer at L5-S1. No migr ation of the interbody spacer. Very minimal disc desiccation throughout the lumbar spine. No fractures or marrow edema. Conus terminates normally at L1-2 disc level. L1-L2: Normal. L2-L3: Moderate ligamentum flavum and facet arthritis. Mild encroachment into the subarticular recess es and foramina. No high-grade stenosis or disc protrusion. L3-L4: Moderate ligamentum flavum and facet arthritis. Facet disease encroaches into the subarticular recesses and foramina. Mild bilateral foraminal narrowing and subarticular recess stenosis. Slightly greater on the RIGHT. Mild central stenosis. L4-L5: Mild annular disc bulging with ligamentum flavum and facet arthritis. Moderate central, bilate ral subarticular recess and foraminal stenosis. L5-S1: Osteophytic ridging and mild facet arthritis. No disc protrusion. Mild bilateral foraminal sonya nosis. Paravertebral soft tissues are normal. MR/MR lumbar spine wo con* [id number] IMPRESSION: 1. Moderate central, bilateral subarticular recess and foraminal stenosis at L 4-5. 2. Posterior lumbar fusion with interbody spacer at L5-S1 is intact. No compli cations are evident. 3. Mild central, bilateral foraminal and subarticular recess stenosis at L3-4.
== END 2022-05-09 13:52 | disposition home or self-care (01) ==
PROVIDERS: PCP Family Medicine; Visit Provider Orthopaedic Surgery
DX: M48.061 Spinal stenosis, lumbar region without neurogenic claudication (principal)
CPT/HCPCS: 72148

== ENCOUNTER 2022-05-16 11:56 | Outpatient (CLI) | payer MEDICAID, SELFPAY ==
--- NOTE | 2022-05-16 12:00 | CT_ITS ---
WS: [id number] LDCT LUNG CANCER SCREENING HISTORY: screening TECHNIQUE: Axial imaging performed from the apices to 1 cm below the costophrenic angles. Coronal and sagittal reformats are submitted with axial MIP series. All CT scans at [facility] use at least one of these dose optimization techniques: automated exposure control; mA and/or kV adjustment per patient size (includes targeted exams where dose is matched to clinical indication); or iterativ e reconstruction. DLP: 77.49 mGy.cm DIvol: Mean CTDIvol: 1.60 (mGy) COMPARISON: 03/06/2020, 05/03/2020 Diagnostic quality: Satisfactory Lungs: New spiculated 14 mm mass in the anterior RIGHT middle lobe. Lungs are hyperinflated with cent rilobular emphysema. Interstitial thickening and mild nodularity in the periphery of the upper and lo wer lung lemus. There are small peripheral micronodules. Heart: Normal size heart with no pericardial effusion. Mild coronary artery atherosclerosis. Other findings: Mediastinal and hilar lymph nodes are similar to prior studies. Not significantly enl arged. Small hiatal hernia. No adrenal mass. CT/CT lung screening [id number] IMPRESSION: LUNG-RADS: 4A-Probably Suspicious FOLLOW UP: 3 Month LDCT PET/CT may also be of value at this time. OTHER FINDINGS (S MODIFIER): None.
== END 2022-05-16 11:57 | disposition home or self-care (01) ==
LOC: RAD 12:00
PROVIDERS: PCP Family Medicine; Visit Provider Family Medicine
DX: Z12.2 Encounter for screening for malignant neoplasm of respiratory organs (principal); F17.219 Nicotine dependence, cigarettes, with unspecified nicotine-induced disorders
CPT/HCPCS: 71271

== ENCOUNTER 2022-05-30 | Day surgery (SDC) | payer MEDICAID, SELFPAY ==
[2022-05-30 10:29] VITALS: BMI 29.2
--- NOTE | 2022-05-30 10:36 | ECG_ITS ---
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
[2022-05-30 11:44] LABS: Basophils # 0.1 10^3/uL (0.0-0.1); Basophils % 1.2 %; Eosinophils # 0.3 10^3/uL (0.0-0.8); Eosinophils % 3.1 %; Hematocrit 43.2 % (37.0-47.0); Hemoglobin 13.9 g/dL (11.5-15.3); Lymphocytes # 3.2 10^3/uL (0.8-4.8); Lymphocytes % 31.5 %; Mean Corpuscular HGB Conc 32.2 g/dL (30.0-36.0); Mean Corpuscular Hemoglobin 30.8 pg (28.0-34.0); Mean Corpuscular Volume 95.6 fl (81-99); Mean Platelet Volume 9.7 fL (7.4-10.4); Monocytes # 0.6 10^3/uL (0.2-0.9); Monocytes % 6.4 %; Neutrophils # 5.77 10^3/uL (1.8-7.7); Neutrophils % 57.5 %; Nucleated Red Blood Cells % 0 %; Platelet Count 311 10^3/cmm (130-400); Red Blood Count 4.52 10^6/uL (4.1-5.3); Red Cell Distribution Width 12.5 % (12.1-15.1)
[2022-05-30 11:47] LABS: Alanine Aminotransferase 26 U/L (0-33); Albumin Level 4.1 g/dL (3.5-5.2); Alkaline Phosphatase 72 U/L (35-105); Aspartate Amino Transferase 23 U/L (0-32); Blood Urea Nitrogen 21 mg/dL (8-23); Calcium 9.5 mg/dL (8.5-10.5); Carbon Dioxide 26 mmol/L (22-29); Chloride 104 mmol/L (98-107); Globulin 3.3 g/dL (1.3-4.6); Glomerular Filtration Rate 56.4 mL/min (90-130); Glucose 91 mg/dL (65-115); Osmolality Calculated 293 mOsm/kg (285-295); Sodium 140 mmol/L (136-145); Total Bilirubin 0.2 mg/dL (0.15-1.2); Total Protein 7.4 g/dL (6.6-8.7)
--- NOTE | 2022-05-30 14:18 | P.ANESASSM_ITS ---
Pre-Anesthetic Assessment Height/Weight: Height 1.73 m Weight 87.09 kg Preop Diagnosis: Chest pain/ LV dysfunction Operation Date: 06/06/22 07:10 Proposed Procedures p Open Spine Decompression:RT L3/4 L4/5 Decompression [id number](Right) - Price Martin DO Familial anesthetic complications: none Was Beta Christian taken within 24 hours: Yes Was Clonidine taken within 24 hours: N/A Social Tobacco and No alcohol Exam alert, oriented x 3 and regular rate & rhythm rhonchi Airway Submandibular: within normal limits Cervical ROM: Other (very limited ROM with extension) Mallampati: Class II Dentition: full Pulmonary Chronic Obstructive Pulmonary Disease Lung CA CV/HEM Coronary Artery Disease, Congestive Heart Failure and Myocardial Infarction CONCLUSIONS ?1.? This is a limited echocardiogram. ?2.? Normal left ventricular cavity size. Low normal left ?ventricular systolic function. Left ventricular ejection ?fraction is estimated at 50-55 %. No regional wall motion ?abnormalities. Abnormal septal motion consistent with conduction ?abnormality. ?3. Normal right ventricular size and systolic function. ?4. Mildly increased left atrial size. ?5.? When compared to previous echocardiogram dated 05/04/2020, ?left ventricle systolic function seems to have improved. ?Roxy Fregoso MD ?(Electronically Signed) ?Final Date:? ? ? 06 Aug 2020 18:5 Chronic Renal Insufficiency Metabolic Thyroid Disease [facility] [place] Lower Back Pain and Osteoarthritis/DJD Neuropsych Anxiety, Depression and Neuropathy Anesthetic Plan ASA status: 3 Anesthesia: General Medications/Allergies Home Medications Medication Instructions Recorded Confirmed Last Taken Type One-A-Day Women's 50 Plus 1 tab PO DAILY@72905/04/20 05/30/22 05/03/20 History aspirin 81 mg tablet,delayed 81 mg PO DAILY@72905/04/20 05/30/22 05/03/20 History release calcium carbonate 600 mg-vitamin 1 tab PO DAILY@72905/04/20 05/30/22 05/03/20 History D3 5 mcg (200 unit) tablet vitamin B complex 1 tab PO DAILY@72905/04/20 05/30/22 05/03/20 History nitroglycerin 0.4 mg sublingual 0.4 mg sublingual Q5M PRN chest 10/01/20 05/30/22 Unknown Rx tablet pain #25 tabs spironolactone 25 mg tablet 12.5 mg PO DAILY PRN weight gain 05/02/21 05/30/22 Unknown Rx #45 tabs turmeric/curcumin 07/26/21 05/28/22 Unknown History nicotine 21 mg/24 hr daily 1 patch transdermal DAILY #28 ea 10/24/21 05/28/22 Unknown Rx transdermal patch (Nicoderm CQ) isosorbide mononitrate 10 mg tablet 5 mg PO BID 10/31/21 05/30/22 Unknown Histor y metoprolol succinate 25 mg 12.5 mg PO DAILY #45 tabs 11/11/21 05/30/22 Unknown Rx tablet,extended release 24 hr mupirocin 2 % topical ointment 1 applic topical BID #22 grams 11/25/21 05/30/22 Unknown Rx sacubitril 24 mg-valsartan 26 mg 1 tab PO BID #180 tabs 12/09/21 05/30/22 Unknown Rx tablet (Entresto) cyclobenzaprine 10 mg tablet 10 mg PO TID PRN muscle spasm #60 04/02/22 05/30/22 Unknown Rx tabs tramadol 50 mg tablet 50 mg PO BID PRN pain #45 tabs 04/02/22 05/30/22 Unknown Rx bupropion HCl 300 mg 24 hr tablet, 300 mg PO QAM #30 tabs 04/23/22 05/30/22 Unknown Rx extended release (Wellbutrin XL) hydroxyzine HCl 50 mg tablet 50 mg PO QID PRN anxiety #120 tabs 04/23/22 05/30/22 Unknown Rx sertraline 100 mg tablet 200 mg PO DAILY #60 tabs 04/23/22 05/30/22 Unknown Rx atorvastatin 80 mg tablet 80 mg PO DAILY #30 tabs 04/25/22 05/30/22 Unknown Rx levothyroxine 75 mcg tablet 75 mcg PO DAILY 30 days #30 tabs 04/25/22 05/30/22 Unknown Rx gabapentin 300 mg capsule See Rx Instructions .Route 04/28/22 05/30/22 Unknown Rx .COMPLEX #90 caps Allergies Allergy/AdvReac Type Severity Reaction Status Date / Time No Known Allergies Allergy Verified 05/28/22 11:24 [facility] Anesthesia Medical History Anxiety Back pain, chronic CHF (NYHA class III, ACC/AHA stage C) LVEF 35% Depression History of rheumatic fever as a child Hypercholesterolemia Hypertension Hypothyroidism LBBB (left bundle branch block) Multiple sites, insect bite, nonvenomous Osteoarthritis Psychiatric care Unstable angina Urinary incontinence, mixed Surgical History H/O left wrist surgery H/O Spinal surgery ALDF and ACDF. H/O vaginal surgery Urethral sling History of 2 sections S/P colonoscopy S/P excision of lipoma Right buttocks. S/P lumpectomy, left breast S/P tonsillectomy Family History Mother Anemia Alzheimer disease Father Heart disease Hypertension Kidney disease COPD (chronic obstructive pulmonary disease) Social History Smoking and tobacco status: never smoked Quit status (tobacco): has quit using tobacco Year quit tobacco: 2021 Second hand smoke exposure: Yes Smoking risk assessment/counseling performed?: No Alcohol intake: current Alcohol intake frequency: few times a week Alcohol type: hard liquor Desire information about alcohol rehabilitation?: No Counseling given: Yes Other alcohol counseling details: Alcohol & medications don't mix. Desire information about substance/drug rehabilitation?: No Counseling given: No Data Anesthesia 05/30/22 11:00 05/30/22 11:00 Short CBC 05/30/22 Range/Units 11:00 WBC 10.0 (4.0-10.0) 10^3/uL Hgb 13.9 (11.5-15.3) g/dL Hct 43.2 (37.0-47.0) % MCV 95.6 (81-99) fl Plt Count 311 (130-400) 10^3/cmm Neut % (Auto) 57.5 % Neut # (Auto) 5.77 (1.8-7.7) 10^3/uL BMP 05/30/22 11:00 Sodium 140 Potassium 5.0 Chloride 104 Carbon Dioxide 26 BUN 21 Creatinine 1.0 H Glucose 91 Calcium 9.5 Liver Function 05/30/22 Range/Units 11:00 Total Bilirubin 0.2 (0.15-1.2) mg/dL AST 23 (0-32) U/L ALT 26 (0-33) U/L Alkaline Phosphatase 72 (35-105) U/L Albumin 4.1 (3.5-5.2) g/dL Cardiac Studies: Echocardiogram Limited Views 08/03/20 Echocardiogram Ultrasound 05/04/20 Sestamibi Stress Test (Cardiology) 05/04
== END 2022-05-30 23:00 | disposition home or self-care (01) ==
PROVIDERS: Anesthesiology; PCP Family Medicine; Visit Provider Orthopaedic Surgery
DX: Z01.818 Encounter for other preprocedural examination (principal); C34.92 Malignant neoplasm of unspecified part of left bronchus or lung; J44.9 Chronic obstructive pulmonary disease, unspecified; I25.10 Atherosclerotic heart disease of native coronary artery without angina pectoris; I50.9 Heart failure, unspecified; I25.2 Old myocardial infarction; N18.9 Chronic kidney disease, unspecified; F41.9 Anxiety disorder, unspecified; F32.A Depression, unspecified; G62.9 Polyneuropathy, unspecified; Z79.82 Long term (current) use of aspirin
CPT/HCPCS: 80053; 85025; J1100; J2250; J2370; J2405; J2704; J3010

== ENCOUNTER 2022-05-30 11:29 | Outpatient (CLI) | payer MEDICAID, SELFPAY | END 2022-05-30 11:30 | disposition home or self-care (01) | LOC: RT 06-03 11:30 | PROVIDERS: PCP Family Medicine; Visit Provider Orthopaedic Surgery | DX: Z13.6 Encounter for screening for cardiovascular disorders (principal) | CPT/HCPCS: 93005 ==

== ENCOUNTER 2022-06-06 05:48 | Day surgery (SDC) | payer MEDICAID, SELFPAY ==
[2022-06-04 12:40] VITALS: BMI 29.6
[2022-06-06] VITALS (10 sets, daily range): BP systolic 88–130; BP diastolic 51–73; PULSE 69–82; RESP 15–18; TEMP 36.1–36.2; O2SAT 91–98
[2022-06-06] MEDS: sodium chloride 0.9% 1,000 ML 30 ML IV (06:13)
--- NOTE | 2022-06-06 06:58 | W.PM.OPSUD ---
Surgery/Procedure H&P Update DATE OF PROCEDURE: June 06, 2022 DATE H&P PERFORMED: 06/03/22 CHANGES TO PREVIOUS DOCUMENTATION: None PREOP DIAGNOSIS: Chest pain/ LV dysfunction PRIMARY INDICATION FOR PROCEDURE: PET/CT active mediastinal and hilar lymphadenopathy-suspicious for malignancy PLANNED PROCEDURE: Operation Date: 06/06/22 07:00 Proposed Procedures p EBUS [id number], 81406, 25673, 99705, 83685, 64131, R91.8(Not Applicable) - Jamir Fregoso DatarMD
--- NOTE | 2022-06-06 07:03 | ANES.PAUD2 ---
Pre-Anesthetic Update Pre-Anesthetic Assessment: Date of Surgery/Procedure: 06/06/22 Preop Diagnosis: Chest pain/ LV dysfunction Proposed Procedure: Operation Date: 06/06/22 07:00 Proposed Procedures p EBUS 81580, 90437, 67725, 58374, 14584, 19017, R91.8(Not Applicable) - Jamir Fregoso DatarMD Any changes to Pre-Anesthetic Assessment?: No Last Intake: Intake Last Liquid Date 06/05/22 Last Liquid Time 22:00 Last Solid Date 06/05/22 Last Solid Time 19:00 Vitals: Temperature 97.1 F L 06/06/22 06:06 Temperature Source Temporal Artery S can 06/06/22 06:06 Pulse Rate 80 06/06/22 06:06 Respiratory Rate 16 06/06/22 06:06 Blood Pressure 88/51 06/06/22 06:06 Blood Pressure Kasey n 63 06/06/22 06:06 Pulse Oximetry 95 06/06/22 06:06 Oxygen Delivery Me thod 06/06/22 06:06 Exam: Pre-Anes Outpt Exam: alert, oriented x 3 and clear to auscultation bilaterally Cardiac Studies: Echocardiogram Limited Views 08/03/20 Echocardiogram Ultrasound 05/04/20 Sestamibi Stress Test (Cardiology) 05/04/20
[2022-06-06 07:11] LABS: Anion Gap 13.3 (5-19); Blood Urea Nitrogen 24 mg/dL (8-23); Calcium 8.5 mg/dL (8.5-10.5); Carbon Dioxide 24 mmol/L (22-29); Chloride 106 mmol/L (98-107); Glomerular Filtration Rate 50.5 mL/min (90-130); Glucose 96 mg/dL (65-115); Osmolality Calculated 292 mOsm/kg (285-295); Potassium 4.3 mmol/L (3.5-5.1); Sodium 139 mmol/L (136-145)
[2022-06-06] MEDS: lidocaine 1% INJ 10 mL (per mL) XX (07:45)
--- NOTE | 2022-06-06 07:46 | PC.NURSE ---
4 ml of lidocaine given
[2022-06-06] MEDS: sodium chloride 0.9% 1,000 ML 100 ML IV (08:05)
--- NOTE | 2022-06-06 09:01 | P.OP_ITS ---
Operative Report Date of procedure: June 06, 2022 Pre-op diagnosis: Preop Diagnosis PET active right middle lobe nodule as well as bilateral hilar and mediastinal lymph nodes-suspicious for malignancy Post-op diagnosis: Possible malignancy Procedure done: 59560:Bronchoscopy w/ therapeutic aspiration of the tracheobronchial tree (clearance of airway secretions, removal of mucus plugs) 16458:EBUS Sampling 1/2 nodes Surgeon: Jamir Song MD [facility] Brief History: Ms. Glenis Sanchez is a 61-year-old female with past medical history of chronic smoking, hypothyroidism,, hypertension, hypercholesterolemia, CHF NYHA III class III,? generalized anxiety disorder, PTSD referral per abnormal low- dose CT. Patient has? smoked 1 ppd x 33 years. smoking 5-7 per day now and sometimes vaping She underwent low-dose lung cancer screening on 05/16/2022 which showed a new spiculated 14 mm lesion in the anterior right middle lobe.? There was some mediastinal and hilar lymph nodes which appears similar to previous studies.? S ubsequently she underwent PET/CT scan yesterday 06/02/2022-which showed 1.9 cm hypermetabolic spiculated lesion inferior anterior right lower lobe with SUV 12.23, 6 mm left upper lobe nodule SUV max 5.39.? There were hypermetabolic bilateral hilar dory conglomerate difficult to accurately measure with SUV max 12.62 on the right and 11.80 on the left.? Hypermetabolic 4 cm subcarinal dory conglomerate SUV max 7.89.? There were numerous hypermetabolic mediastinal nodes present. No evidence of metastatic disease below the diaphragm.? There was hypermetabolic uptake in cervical spine along the right C6 through which could suggest loosening/motion or infection.? Similar findings seen as L5-S1 asymmetric to the left.? Although radiology reported with this appears less likely mild osseous metastasis Today she is scheduled for bronchoscopic evaluation as well as endobronchial ultrasound-guided biopsies of mediastinal and hilar lymph nodes Procedure: 93024:Bronchoscopy w/ therapeutic aspiration of the tracheobronchial tree (clearance of airway secretions, removal of mucus plugs) 89387:EBUS Sampling 1/2 nodes 11372: Diagnostic EBUS Indication: PET active right middle lobe as well as bilateral hilar and mediastinal lymphadenopathy suspicious for malignancy Anesthesia: General anesthesia. Local anesthesia: The sonja in the right and left mainstem bronchi were anesthetized with 1% lidocaine, 3 mL. Description of the procedure: The procedure was explained to the patient and the consent was obtained. The patient was brought to the OR. The patient underwent induction for general anesthesia and received paralytic rocuronium for endotracheal intubation however she had a difficult airway and so rocuronium was reversed with sugammadex and proceeded with laryngeal mask airway placement, LMA.. The bronchoscope was advanced through the LMA. The vocal cords are mobile and normal. 1% lidocaine 1 mL is instilled for local anesthesia. The scope was advanced through the vocal cords into the trachea. Tracheal mucosa appeared normal, no endotracheal lesion was seen. The sonja was sharp. 1 mL each of 1% lidocaine was instilled in the trachea the right and left mainstem bronchi for local anesthesia. There were thick mucus which gave a sense of abnormal mucosa but after suctioning the mucous plugs-mucosa appeared normal..(96275) In a systematic manner bilateral bronchial tree was then examined. The bronchoscope was advanced into the left mainstem bronchus. The mucosa appeared normal with no endobronchial lesions. The left upper lobe, lingula and left lower lobe bronchi were examined up to the third subsegmental level and no abnormalities were identified. Again noted thick mucus which gave a sense of abnormal mucosa but after suctioning mucosa appeared normal with no endobronchial lesion. The bronchoscope was then introduced into the right mainstem bronchus. The right upper lobe, right middle lobe and right lower lobe bronchi were examined up to the third subsegmental level and no abnormalities were identified. Again noted thick mucus which gave a sense of abnormal mucosa but after suctioning the mucous plugs-mucosa appeared normal..(30877)The mucosa appeared normal with no endobronchial lesions, active bleeding or mucous plugs. After initial inspection, bronchoscope was retracted and endobronchial ultrasound (94971 ) was introduced. Identified a several lymph nodes at station 4R, 11 R, station 7, 4L, 2L. Decision was made to take biopsies from farthest lymph node station 2L. Using [id number] were taken from station 2L (55528)-prepared 1 touch prep for rapid onsite evaluation. Pathology determined seeing definite malignancy. After taking 3 passes and confirming with pathology that we have enough tissue for molecular testing, procedure was terminated. The remaining tissue was placed in formalin for histopathology review. After biopsies there was no active bleeding. Patient then desaturated to 82, prompting to retract endobronchial ultrasound as well as LMA. She received bag mask ventilation with jaw retraction and her sats improved to 93 instantaneously. As we already saw definite malignancy from contralateral mediastinal lymph node and have enough tissue sample-and patient had desaturation-I have terminated the procedure and hence could not collect any bronchoalveolar lavage. Samples: 1. Station 2L-FNA C 1. Total of 3 passes were made using needle aspiration(64245); placed in formalin for histopathology Complications: None.The patient was extubated and brought to the PACU in stable condition. Disposition: Patient can be discharged home in stable condition. Pt, and his accompanying family are aware that I am going to call them to update final biopsy results once available. . Related Problem List Diagnoses (1) Suspected lung cancer: (2) Mediastinal lymphadenopathy:
--- NOTE | 2022-06-06 12:41 | ANE.PACU2 ---
Inpatient post-anesthesia follow up: Airway intact: Yes Vital signs: Temperature 97 F Pulse Rate 69 Respiratory Rate 16 Blood Pressure 130/73 Pulse Oximetry 96 Oxygen Delivery Me thod Room Air Oxygen Flow Rate Fraction of Inspir ed Oxygen Hydration adequate: Yes Nausea and vomiting: No Pain level: 1 Mental status: Baseline
== END 2022-06-06 10:10 | disposition home or self-care (01) ==
PROVIDERS: Anesthesiology; PCP Family Medicine; Visit Provider Internal Medicine Pulmonary Disease
PROC: 0BJ08ZZ Inspection of Tracheobronchial Tree, Via Natural or Artificial Opening Endoscopic (ICD-10-PCS; CPT 31622; principal; 2022-06-06 07:00)
PROC: BB4BZZZ Ultrasonography of Pleura (ICD-10-PCS; 2022-06-06 07:00)
DX: R91.8 Other nonspecific abnormal finding of lung field (principal); F17.210 Nicotine dependence, cigarettes, uncomplicated; I10 Essential (primary) hypertension; E03.9 Hypothyroidism, unspecified; F41.9 Anxiety disorder, unspecified; J43.9 Emphysema, unspecified
CPT/HCPCS: 31645; 31652; 31654; 36415; 80048; 80503; 88305; 88342; J1100; J2250; J2370; J2405; J2704; J3010; J7030

== ENCOUNTER 2022-06-17 08:16 | Day surgery (SDC) | payer MEDICAID, SELFPAY ==
[2022-06-16 08:42] VITALS: BMI 29.6
[2022-06-17] VITALS (12 sets, daily range): BP systolic 102–130; BP diastolic 52–73; PULSE 71–76; RESP 17–24; TEMP 36.1–36.5; O2SAT 91–100
--- NOTE | 2022-06-17 08:19 | CT_ITS ---
WS: [id number] CT chest ION (PULM ONLY) 59231 HISTORY: For robotic bronchoscopy in patient with PET active RML TECHNIQUE: Axial imaging performed through the thorax. CONTRAST: None DLP: 283.02 mGy-cm. COMPARISON: None available. Spiculated mass in the RIGHT middle lobe is identified measuring 17 x 17 mm. No interval change since 05/16/2022. Background of emphysema. No pneumothorax. No additional mass or nodule. Atherosclerosis aorta. Calcification extends into the proximal great arteries. Heart size is normal. CT/CT chest ION (PULM ONLY) 69786 IMPRESSION: No change spiculated mass RIGHT middle lobe prior to bronchoscopy.
--- NOTE | 2022-06-17 08:52 | W.PM.OPSUD ---
Surgery/Procedure H&P Update DATE OF PROCEDURE: June 17, 2022 DATE H&P PERFORMED: 06/03/22 CHANGES TO PREVIOUS DOCUMENTATION: None PREOP DIAGNOSIS: Chest pain/ LV dysfunction PRIMARY INDICATION FOR PROCEDURE: PET positive right middle lobe lesion and hilar/mediastinal lymphadenopathy PLANNED PROCEDURE: Operation Date: 06/17/22 10:10 Proposed Procedures p ION robotic bronch with EBUS; 12521, 13273, 87750, 41651, 30367, 68456, 85454, 83482, 62938, 97941, 36706, 40932, 33119(Not Applicable) - Jamir Song MD s Ebus(Not Applicable) - Jamir Song MD
--- NOTE | 2022-06-17 08:54 | P.ANESASSM_ITS ---
Pre-Anesthetic Assessment Height/Weight: Height 1.73 m Weight 88.451 kg Temp Pulse Resp BP Pulse Ox O2 Del Method 97.7 F 72 18 102/52 95 06/17/22 08:49 06/17/22 08:49 06/17/22 08:49 06/17/22 08:49 06/17/22 08:49 06/17/22 08:49 Preop Diagnosis: Chest pain/ LV dysfunction Operation Date: 06/17/22 10:10 Proposed Procedures p ION robotic bronch with EBUS; 81288, 40750, 26300, 87712, 09535, 79342, 86240, 30764, 03938, 03625, 72091, 39017, 73291(Not Applicable) - Jamir Song MD s Ebus(Not Applicable) - Jamir LopezrMD Familial anesthetic complications: None Was Beta Christian taken within 24 hours: N/A (taken /) Was Clonidine taken within 24 hours: N/A Last intake: > 8hrs Social Tobacco and No alcohol Exam alert, oriented x 3, clear to auscultation bilaterally and regular rate & rhythm Airway Mallampati: Class II Dentition: full Pulmonary Chronic Obstructive Pulmonary Disease CV/HEM Congestive Heart Failure (EF 55% on last echo) and Hypertension hx LBBB Chronic Renal Insufficiency [facility] [place] hx rheumatic fever as child Anesthetic Plan ASA status: 4 Anesthesia: General Risk of > 500 ml blood loss (7ml/kg in children): No Medications/Allergies Home Medications Medication Instructions Recorded Confirmed Last Taken Type One-A-Day Women's 50 Plus 1 tab PO DAILY@72905/04/20 06/16/22 06/15/22 History aspirin 81 mg tablet,delayed 81 mg PO DAILY@72905/04/20 06/16/22 3 Weeks Ago History release ~05/26/22 calcium carbonate 600 mg-vitamin 1 tab PO DAILY@72905/04/20 06/16/22 06/15/22 History D3 5 mcg (200 unit) tablet vitamin B complex 1 tab PO DAILY@72905/04/20 06/16/22 06/15/22 History nitroglycerin 0.4 mg sublingual 0.4 mg sublingual Q5M PRN chest 10/01/20 06/16/22 3 Months Ago Rx tablet pain #25 tabs ~03/18/22 spironolactone 25 mg tablet 12.5 mg PO DAILY PRN weight gain 05/02/21 06/16/22 06/15/22 Rx #45 tabs turmeric/curcumin 07/26/21 06/16/22 06/15/22 History nicotine 21 mg/24 hr daily 1 patch transdermal DAILY #28 ea 10/24/21 06/16/22 06/15/22 Rx transdermal patch (Nicoderm CQ) isosorbide mononitrate 10 mg tablet 5 mg PO BID 10/31/21 06/16/22 06/15/22 History metoprolol succinate 25 mg 12.5 mg PO DAILY #45 tabs 11/11/21 06/16/22 06/15/22 Rx tablet,extended release 24 hr mupirocin 2 % topical ointment 1 applic topical BID #22 grams 11/25/21 06/16/22 06/15/22 Rx sacubitril 24 mg-valsartan 26 mg 1 tab PO BID #180 tabs 12/09/21 06/16/22 06/15/22 Rx tablet (Entresto) cyclobenzaprine 10 mg tablet 10 mg PO TID PRN muscle spasm #60 04/02/22 06/16/22 06/15/22 Rx tabs tramadol 50 mg tablet 50 mg PO BID PRN pain #45 tabs 04/02/22 06/16/22 06/15/22 Rx atorvastatin 80 mg tablet 80 mg PO DAILY #30 tabs 04/25/22 06/16/22 06/15/22 Rx levothyroxine 75 mcg tablet 75 mcg PO DAILY 30 days #30 tabs 04/25/22 06/16/22 06/15/22 Rx lorazepam 0.5 mg tablet (Ativan) 0.5 mg PO TID PRN anxiety #21 tabs 06/03/22 06/16/22 06/15/22 Rx tiotropium bromide 1.25 2 puff inhalation DAILY #4 grams 06/03/22 06/16/22 06/15/22 Rx mcg/actuation mist for inhalation (Spiriva Respimat) gabapentin 300 mg capsule 300 mg PO TID #240 caps 06/09/22 06/16/22 06/15/22 Rx bupropion HCl 300 mg 24 hr tablet, 300 mg PO QAM #30 tabs 06/12/22 06/16/22 06/15/22 Rx extended release (Wellbutrin XL) hydroxyzine HCl 50 mg tablet 50 mg PO QID PRN anxiety #120 tabs 06/12/22 06/16/22 06/15/22 Rx sertraline 100 mg tablet 200 mg PO DAILY #60 tabs 06/12/22 06/16/22 06/15/22 Rx Allergies Allergy/AdvReac Type Severity Reaction Status Date / Time No Known Allergies Allergy Verified 06/17/22 08:47 [facility] Anesthesia Medical History Anxiety Back pain, chronic CHF (NYHA class III, ACC/AHA stage C) LVEF 35% Depression History of nonmelanoma skin cancer History of rheumatic fever as a child Hypercholesterolemia Hypertension Hypothyroidism LBBB (left bundle branch block) Multiple sites, insect bite, nonvenomous Osteoarthritis Psychiatric care Unstable angina Urinary incontinence, mixed Surgical History H/O left wrist surgery H/O Spinal surgery ALDF and ACDF. H/O vaginal surgery Urethral sling History of 2 sections S/P colonoscopy S/P excision of lipoma Right buttocks. S/P lumpectomy, left breast S/P tonsillectomy Family History Mother Anemia Alzheimer disease Father Heart disease Hypertension Kidney disease COPD (chronic obstructive pulmonary disease) Social History Smoking and tobacco status: never smoked Quit status (tobacco): has quit using tobacco Year quit tobacco: 2021 Second hand smoke exposure: Yes Smoking risk assessment/counseling performed?: No Alcohol intake: current Alcohol intake frequency: few times a week Alcohol type: hard liquor Desire information about alcohol rehabilitation?: No Counseling given: Yes Other alcohol counseling details: Alcohol & medications don't mix. Desire information about substance/drug rehabilitation?: No Counseling given: No Data Anesthesia Cardiac Studies: Echocardiogram Limited Views 08/03/20 Echocardiogram Ultrasound 05/04/20 Sestamibi Stress Test (Cardiology) 05/04
--- NOTE | 2022-06-17 09:47 | ECG_ITS ---
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 Measurements Intervals Dudley Rate: 66 P: 61 MN: 155 QRS: 36 QRSD: 85 T: 44 QT: 396 QTc: 416 Interpretive Statements SINUS RHYTHM Compared to ECG 05/30/2022 11:06:10 No significant changes Electronically Signed On 06-17-2022 11:52:56 CDT by Abedlrahman Land M.D. [email or web address]
--- NOTE | 2022-06-17 10:16 | SC_ITS ---
WS: [id number] EXAMINATION: C-arm FL for Bronchoscopy ORDER DATE: 06/17/2022 10:16 AM REASON FOR EXAM: ION COMPARISON: None available. FLUOROSCOPY TIME: 674 seconds # OF SPOT FILMS: 1 FINDINGS: Bronchoscope through the endotracheal tube into left mainstem bronchus. SC/C-arm FL for Bronchoscopy IMPRESSION: Fluoroscopic assistance for bronchoscopy as above.
[2022-06-17] MEDS: lidocaine 1% INJ 10 mL (per mL) XX (10:22)
[2022-06-17] MEDS: sodium chloride 0.9% 1,000 ML 30 ML IV (10:30)
[2022-06-17 11:50] LABS: Cyto Order Verification Order Verified
[2022-06-17] MEDS: EPINEPHrine 1 mg/mL INJ XX (12:08)
--- NOTE | 2022-06-17 12:29 | XRR_ITS ---
PROCEDURE INFORMATION: Exam: XR Chest Exam date and time: 06/17/2022 11:33 AM Age: 61 years old Clinical indication: Device placement; Other: Post ion procedure; Additional info: Post ion procedure, PT in pacu/recovery TECHNIQUE: Imaging protocol: Radiologic exam of the chest. Views: 1 view. COMPARISON: CT chest ION (PULM ONLY) [id number] 06/17/2022 8:30 AM FINDINGS: Lungs: Unremarkable. No consolidation. Pleural spaces: Unremarkable. No pleural effusion. No pneumothorax. Heart/Mediastinum: Unremarkable. No cardiomegaly. Bones/joints: Unremarkable. XR/XR chest 1V portable [id number] IMPRESSION: No acute findings.
[2022-06-17 12:33] LABS: Apprearance, Bronch Wash Bloody (CLEAR); Color, Bronc Wash Red
[2022-06-17 12:34] LABS: Bronch Source Right Middle Lobe; PATH Referral Yes
[2022-06-17 12:59] LABS: Total Cells Counted Bronch 200
--- NOTE | 2022-06-17 13:10 | P.OP_ITS ---
Operative Report Date of procedure: June 17, 2022 Pre-op diagnosis: Preop Diagnosis Chest pain/ LV dysfunction Brief History: Ms. Glenis Sanchez is a 61-year-old female with past medical history of chronic smoking, hypothyroidism,, hypertension, hypercholesterolemia, CHF NYHA III class III,? generalized anxiety disorder, PTSD referral per abnormal low- dose CT. Patient has? smoked 1 ppd x 33 years. smoking 5-7 per day now and sometimes vaping She underwent low-dose lung cancer screening on 05/16/2022 which showed a new spiculated 14 mm lesion in the anterior right middle lobe.? There was some mediastinal and hilar lymph nodes which appears similar to previous studies.? Subsequently she underwent PET/CT scan yesterday 06/02/2022-which showed 1.9 cm hypermetabolic spiculated lesion inferior anterior right lower lobe with SUV 12.23, 6 mm left upper lobe nodule SUV max 5.39.? There were hypermetabolic bilateral hilar dory conglomerate difficult to accurately measure with SUV max 12.62 on the right and 11.80 on the left.? Hypermetabolic 4 cm subcarinal dory conglomerate SUV max 7.89.? There were numerous hypermetabolic mediastinal nodes present. No evidence of metastatic disease below the diaphragm.? There was hypermetabolic uptake in cervical spine along the right C6 through which could suggest loosening/motion or infection.? Similar findings seen as L5-S1 asymmetric to the left.? Although radiology reported with this appears less likely mild osseous metastasis Initially scheduled for EBUS guided lymph node biopsies on 06/06/2022 as she has extensive PET active lesions. Accordingly an LMA was placed and with the help of EBUS identified several lymph nodes at station 4R, 11 R, station 7, 4L, 2L.? Decision was made to take biopsies from farthest lymph node station 2L. Using [id number] were taken from?station 2L (05804)-prepared 1 touch prep? f or rapid onsite evaluation.? Pathology reported seeing definite malignancy.? Took 3 passes and confirmed with pathology that we have enough tissue for histopathology and molecular testing. Meanwhile patient desaturated and we had to terminate the procedure. I could not obtain BAL. Final pathology reported station 2-negative for malignancy. Multiple epithelioid noncaseating granulomas identified. She was again scheduled today for navigational guided biopsy of right middle lobe lesion as well as endobronchial ultrasound-guided biopsies of several hilar/mediastinal lymph nodes. Procedure: Procedure: 73507? ? Dx Bronchoscope w/Washings or airway inspection 61001 DX Bronchoscope w/Brushings or protected brushings 58879? ? Dx Bronchoscope w/BAL 84382? ? Bronch with computer image guided Navigational Bronchoscopy 18459? ? Bronchoscopy w/Transbronchial lung biopsy(s), single lobe 15373? ? Bronchoscopy w/Transbronchial needle aspiration biopsy(s), tracheal, main stem, and/or lobar bronchus 93557? ? Bronchoscopy w/ therapeutic aspiration of the tracheobronchial tree (clearance of airway secretions, removal of mucus plugs) 05886? ? EBUS Sampling 3 nodes 19324? ? EBUS Diag or Interven Peripheral lesion (radial EBUS) Indication:? Description of the procedure: The procedure was explained to the patient and the consent was obtained.? The patient was brought to the OR.? Anesthesia: The patient underwent endotracheal intubation for general anesthesia. Local anesthesia: The distal trachea-Erika, right and left mainstem bronchi were anesthetized with 1% lidocaine, 3 mL. Following induction of general anesthesia, the flexible bronchoscope was advanced through the? ET tube.? The? lower trachea mucosa appeared normal, no endotracheal lesion was seen.? The erika was sharp.? The erika, the right and left mainstem bronchi are anesthetized with 1% lidocaine.? In a systematic manner bilateral bronchial tree was then examined. ? The bronchoscope was then introduced into the right mainstem bronchus.? The right upper lobe, right middle lobe and right lower lobe bronchi were examined up to the third subsegmental level and no abnormalities were identified. ? There were significant thick mucus secretions which were suctioned right away. The bronchoscope was advanced into the left mainstem bronchus.? The mucosa appeared normal with no endobronchial lesions.? The left upper lobe, lingula and left lower lobe bronchi were examined up to the third subsegmental level and no abnormalities were identified.? Mucosa appeared normal with no endobronchial lesion, active bleeding or mucous plug.? There were significant thick mucus secretions in both upper lobes and lower lobes-which were suctioned right away. After initial inspection as well as?airway clearance with flexible bronchoscope(69578),?ION robotic assisted navigational bronchoscope (29655)?was introduced-and right middle lobe lesion was accessed.? There was significant amount of CT divergence and we used radial EBUS (59747). I can only see a weak signal and so under the fluoroscopy guidance? -we were able to obtain biopsies using fine-needle, forceps, brush. 1 pass with forceps and fine-needle were used for touch prep and sent for rapid onsite evaluation-pathology reported negative for malignancy.? Targeting the same area, 3 additional passes were made with fine-needle and 3 passes were made with forceps and 1 pass with Cytobrush- all the samples were placed in formalin for histopathology examination. Bronchoscope was wedged at the entrance of the medial segment of right middle, 10 mL of saline was instilled and returned 6 mL of bronchoalveolar lavage (76301).? The fluid was mixed with blood and specks of tissue. There was some evidence of grade 2 bleeding-cold saline was instilled and after making sure there is no active bleeding, ION robotic assisted navigational bronchoscope was retracted and?introduced Endobronchial ultrasound EBUS(07239). ? With the help of EBUS, identified a lymph node at station 7.??Fine-needle aspiration biopsies? were performed from station 4L, station 7, station 11 R (85519).There was some evidence of bleeding-cold saline was instilled. ?After making sure there is no active bleeding EBUS was retracted and procedure terminated. ? Samples: Left upper lobe lesion 1.? Total of 4 passes were made?using needle aspiration(02076);?first pass used for touch prep - reported negative for malignancy; remaining 3 passes were placed in formalin for histopathology 2.? Targeting the same area 4 passes were?made using forceps (65154); first pass used for touch prep -pathology reported seeing atypical clusters; remaining 3 passes were placed in formalin for histopathology 3.Targeting the same area 4 passes were?made using Cytobrush (17059); specimen was placed in formalin for histopathology review 4.Bronchoscope was wedged at the entrance of the medial segment of right middle, 10 mL of saline was instilled and returned 6 mL of bronchoalveolar lavage (42411).? The fluid was mixed with blood and specks of tissue. Sample was sent for cell count, cultures, cytology. EBUS guided biopsies of 3 lymph nodes-station 4L, station 7, station 11 R (55336). 1.? Total of 4 passes were made?using needle aspiration from station 4L;?first pass used for touch prep -pathology reported seeing lymphoid material with debris;?remaining 3 passes were placed in formalin for histopathology 2.? Total of 4 passes were made?using needle aspiration from station 7:?1 pass was placed in RPMI, 1 pass was placed with normal saline for cultures, remaining specimen placed in formalin for histopathology 3.? Total of 3 passes were made?using needle aspiration from station 11 R;?all the material from 2 passes were placed in formalin for histopathology ? Complications: None.The patient was extubated and brought to the PACU in stable condition. Postprocedure chest x-ray: No evidence of pneumothorax Disposition: Patient can be discharged home in stable condition. ? Pt, and his her are aware that I am going to call them? to update final biopsy results once available.
[2022-06-20 14:13] LABS: Lymphoma Profile (BBPL) See Report
== END 2022-06-17 14:06 | disposition home or self-care (01) ==
PROVIDERS: PCP Family Medicine; Visit Provider Internal Medicine Pulmonary Disease
PROC: 0BJ08ZZ Inspection of Tracheobronchial Tree, Via Natural or Artificial Opening Endoscopic (ICD-10-PCS; CPT 31622; principal; 2022-06-17 09:50)
PROC: BB4BZZZ Ultrasonography of Pleura (ICD-10-PCS; 2022-06-17 09:50)
DX: R91.8 Other nonspecific abnormal finding of lung field (principal); R07.9 Chest pain, unspecified; E03.9 Hypothyroidism, unspecified; E78.00 Pure hypercholesterolemia, unspecified; I11.0 Hypertensive heart disease with heart failure; I50.9 Heart failure, unspecified; F41.1 Generalized anxiety disorder; F17.200 Nicotine dependence, unspecified, uncomplicated; J44.9 Chronic obstructive pulmonary disease, unspecified; Z79.82 Long term (current) use of aspirin; J43.9 Emphysema, unspecified
CPT/HCPCS: 31623; 31624; 31627; 31628; 31629; 31645; 31653; 31654; 71045; 71250; 76000; 80503; 87015; 87070; 87102; 87116; 87205; 87206; 87801; 88112; 88184; 88185; 88305; 88309; 89050; 93005; J0171; J1100; J2250; J2405; J2704; J3010; J3490; J7030

== ENCOUNTER 2022-06-23 13:28 | Outpatient (CLI) | payer OTHER, SELFPAY ==
[2022-06-23 15:55] LABS: Add Urine Microscopic? NO; Charge for UA Resulting for Rev
[2022-06-23 16:07] LABS: Bilirubin Urine Neg (Negative); Blood Urine Neg (Negative); Glucose Urine UA Norm (Normal); Ketones Urine Negative (Negative); Leukocyte Esterase Urine Negative (Negative); Nitrate Urine Negative (Negative); Protein Urine Neg (Negative); Specific Gravity, Urine 1.005 (1.005-1.030); Urine Appearance Clear (CLEAR); Urine Color Yellow (Yellow); Urobilinogen Urine Neg (Negative); pH Urine 7 (5-7)
[2022-06-24 12:54] LABS: CENTROMERE B ANTIBODY <1.0 NEG AI (<1.0 NEG); JO-1 ANTIBODY <1.0 NEG AI (<1.0 NEG); RNP ANTIBODY <1.0 NEG AI (<1.0 NEG); SCL-70 ANTIBODY <1.0 NEG AI (<1.0 NEG); SJOGREN'S ANTIBODY (SS-A) <1.0 NEG AI (<1.0 NEG); SM ANTIBODY <1.0 NEG AI (<1.0 NEG); SS-B <1.0 NEG AI (<1.0 NEG)
[2022-06-24 15:55] LABS: THYROID PEROXIDASE ANTIBODIES <1 IU/mL (<9)
[2022-06-25 12:04] LABS: COMPLEMENT COMPONENT C3C 147 mg/dL (83-193); COMPLEMENT COMPONENT C4C 27 mg/dL (15-57)
[2022-06-25 12:39] LABS: Quantiferon Mitogen >10.00 IU/mL; Quantiferon Nil 0.01 IU/mL; Quantiferon TB Gold NEGATIVE (NEGATIVE)
[2022-06-25 13:06] LABS: Angiotensin Converting Enzyme 43 U/L (9-67); COMPLEMENT, TOTAL (CH50) 59 U/mL (31-60)
[2022-06-25 13:20] LABS: ANA SCREEN, IFA POSITIVE (NEGATIVE)
[2022-06-25 13:24] LABS: ANA TITER 1:40 titer
[2022-06-26 02:04] LABS: ANCA Screen NEGATIVE (NEGATIVE); DNA AB (DS) CRITHIDIA,IFA NEGATIVE (NEGATIVE)
[2022-06-28 23:50] LABS: Histoplasma Galactomannan Ag <0.2 ng/mL
[2022-06-29 14:49] LABS: Blastomyces AB Immunodiffusion Negative (Negative); Blastomyces Dermatitidis AB <1:8 titer (<1:8)
[2022-06-29 21:55] LABS: Coccidioides AB CF Serum <1:2
== END 2022-06-23 13:29 | disposition home or self-care (01) ==
PROVIDERS: PCP Family Medicine; Visit Provider Internal Medicine Pulmonary Disease
DX: R59.0 Localized enlarged lymph nodes (principal); L92.9 Granulomatous disorder of the skin and subcutaneous tissue, unspecified
CPT/HCPCS: 36415; 81003; 82164; 86036; 86160; 86162; 86235; 86255; 86376; 86480; 86612; 86635; 87385

== ENCOUNTER → 2022-07-01 16:06 | Outpatient (BNVA) | payer MEDICAID, SELFPAY | PROVIDERS: PCP Family Medicine; Visit Provider Internal Medicine Pulmonary Disease | DX: R76.8 Other specified abnormal immunological findings in serum (principal); R91.8 Other nonspecific abnormal finding of lung field | CPT/HCPCS: 36415 ==

== ENCOUNTER → 2022-07-05 13:23 | Outpatient (BNVA) | payer MEDICAID, SELFPAY | PROVIDERS: PCP Family Medicine; Visit Provider Nurse Practitioner | DX: J02.9 Acute pharyngitis, unspecified (principal) | CPT/HCPCS: 87071; 87880 ==

== ENCOUNTER 2022-07-15 18:51 | Emergency (ER) | payer MEDICAID, SELFPAY ==
--- NOTE | 2022-07-15 18:58 | XRR_ITS ---
PROCEDURE INFORMATION: Exam: XR Chest Exam date and time: 07/15/2022 7:17 PM Age: 62 years old Clinical indication: Pain; Chest pressure; Prior surgery; Surgery date: 6+ months; Surgery type: Lumpectomy; Additional info: Cp TECHNIQUE: Imaging protocol: Radiologic exam of the chest. Views: 1 view. COMPARISON: CR XR chest 1V portable [id number] 06/17/2022 11:33 AM FINDINGS: Lungs: Small focal opacity noted in the left lung base. Pleural spaces: Unremarkable. No pleural effusion. No pneumothorax. Heart/Mediastinum: Unremarkable. No cardiomegaly. Bones/joints: ACDF hardware noted in the cervical spine. Visualized osseous structures are intact. XR/XR chest 1V portable [id number] IMPRESSION: Small focal opacity noted in the left lung base, possible infiltrate.
[2022-07-15 19:02] VITALS: BP 119/70; PULSE 71; RESP 18; TEMP 36.7; O2SAT 94; BMI 30.2
--- NOTE | 2022-07-15 19:06 | ECG_ITS ---
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 Measurements Intervals [place] Rate: 70 P: 142 MO: 141 QRS: 82 QRSD: 86 T: 120 QT: 379 QTc: 410 Interpretive Statements ECTOPIC ATRIAL RHYTHM POSSIBLE LEFT ATRIAL ENLARGEMENT [-0.1mV P-WAVE IN V1/V2] LATERAL MYOCARDIAL INFARCTION , OF INDETERMINATE AGE [40+ ms Q WAVE AND/OR ST/T ABNORMALITY IN I/aVL/V5/V6] INTERPRETATION BASED ON A DEFAULT AGE OF 40 YEARS Compared to ECG 06/17/2022 09:47:56 Ectopic atrial rhythm now present Myocardial infarct finding now present Sinus rhythm no longer present Electronically Signed On 07-16-2022 0:22:49 CDT by Divya Antonio M.D. [id number]
[2022-07-15 20:14] LABS: Basophils # 0.1 10^3/uL (0.0-0.1); Basophils % 0.9 %; Eosinophils # 0.3 10^3/uL (0.0-0.8); Hematocrit 42.9 % (37.0-47.0); Hemoglobin 13.9 g/dL (11.5-15.3); Lymphocytes # 4.3 10^3/uL (0.8-4.8); Mean Corpuscular HGB Conc 32.4 g/dL (30.0-36.0); Mean Corpuscular Hemoglobin 30.7 pg (28.0-34.0); Mean Corpuscular Volume 94.7 fl (81-99); Mean Platelet Volume 9.1 fL (7.4-10.4); Monocytes # 0.8 10^3/uL (0.2-0.9); Monocytes % 5.6 %; Neutrophils # 8.37 10^3/uL (1.8-7.7); Neutrophils % 59.9 %; Nucleated Red Blood Cells % 0 %; Platelet Count 317 10^3/cmm (130-400); Red Blood Count 4.53 10^6/uL (4.1-5.3); Red Cell Distribution Width 13.4 % (12.1-15.1)
[2022-07-15 20:29] LABS: INR 0.85 (0.8-1.2)
[2022-07-15 20:38] LABS: Troponin(5th) Baseline 6 ng/L (0-10)
[2022-07-15 20:39] LABS: Alanine Aminotransferase 22 U/L (0-33); Albumin Level 4.4 g/dL (3.5-5.2); Alkaline Phosphatase 99 U/L (35-105); Anion Gap 17.6 (5-19); Aspartate Amino Transferase 22 U/L (0-32); Blood Urea Nitrogen 22 mg/dL (8-23); Calcium 9.7 mg/dL (8.5-10.5); Carbon Dioxide 23 mmol/L (22-29); Chloride 101 mmol/L (98-107); Globulin 3.4 g/dL (1.3-4.6); Glomerular Filtration Rate 41.5 mL/min (90-130); Glucose 95 mg/dL (65-115); Osmolality Calculated 287 mOsm/kg (285-295); Potassium 4.6 mmol/L (3.5-5.1); Sodium 137 mmol/L (136-145); Total Bilirubin 0.2 mg/dL (0.15-1.2); Total Protein 7.8 g/dL (6.6-8.7)
[2022-07-15 20:40] LABS: Creatinine Clr Calc Pharmacy 52.7326
[2022-07-15 21:25] VITALS: BP 127/46; PULSE 65; RESP 16; O2SAT 97; O2SAT 98
[2022-07-15 21:40] VITALS: BP 116/65; PULSE 68; RESP 18; O2SAT 94
--- NOTE | 2022-07-15 21:40 | ECG_ITS ---
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 Measurements Intervals [place] Rate: 66 P: 63 [place]: 151 QRS: 52 QRSD: 89 T: 57 QT: 397 QTc: 417 Interpretive Statements SINUS RHYTHM Compared to ECG 06/17/2022 09:47:56 No significant changes Electronically Signed On 07-16-2022 14:21:25 CDT by Deshaun Suarez M.D. [email or web address] Resourcesgre[facility] [email or web address] Systemsk[facility] [id number]
--- NOTE | 2022-07-15 21:45 | ED_ITS ---
HPI - Chest Pain General: Chief Complaint: Chest Pain Stated Complaint: sent by [facility] e[facility] Time Seen by Provider: 07/15/22 21:21 History of Present Illness: Did woundPatient presents to the ER with complaints of substernal chest pain rating up into her neck. She was over at urgent care. Dr. Perkins performed an EKG which the patient says was abnormal and sent her over here for further evaluation. By the time the patient got over here the pain had resolved. Patient has had this pain once in the past several years ago. MD complaint: chest pain Onset (ago): hour(s) (Couple hours ago) Prior episodes: Yes Onset: during rest Pain location: substernal Pain radiation: neck Severity: moderate Quality: sharp and shooting Relieving factors: nothing Exacerbating factors: nothing Associated symptoms: Deny abdominal pain, dyspnea, fever(s), nausea, palpitations or vomiting Treatment prior to arrival: nitroglycerin Review of Systems General: Reports: 10 or more systems reviewed and unremarkable except in HPI and below Const: Denies: fever(s) or chills Eyes: Denies: change in vision or photophobia ENMT: Denies: throat pain or odynophagia Card: Reports: chest pain; Denies: palpitations or irregular heart rhythm Resp: Denies: dyspnea, productive cough or non-productive cough GI: Denies: abdominal pain, nausea or vomiting : Denies: flank pain, difficulty voiding or dysuria PFS ED PFSH: Medical History Anxiety Back pain, chronic CHF (NYHA class III, ACC/AHA stage C) LVEF 35% Depression History of nonmelanoma skin cancer History of rheumatic fever as a child Hypercholesterolemia Hypertension Hypothyroidism LBBB (left bundle branch block) Multiple sites, insect bite, nonvenomous Osteoarthritis Psychiatric care Unstable angina Urinary incontinence, mixed Surgical History H/O left wrist surgery H/O Spinal surgery ALDF and ACDF. H/O vaginal surgery Urethral sling History of 2 sections S/P colonoscopy S/P excision of lipoma Right buttocks. S/P lumpectomy, left breast S/P tonsillectomy Family History Mother Anemia Alzheimer disease Father Heart disease Hypertension Kidney disease COPD (chronic obstructive pulmonary disease) Social History Smoking and tobacco status: current every day smoker cigarettes Packs smoked per day: 1 Years cigarettes smoked: 46 [ Other cigarette details: started age 15] and e-cigarettes E-Cigarette Details: vaporizer device and with nicotine E- cig/vape details: Refill/2 weeks. Quit status (tobacco): has quit using tobacco Year quit tobacco: 2021 Second hand smoke exposure: Yes Smoking risk assessment/counseling performed?: No Alcohol intake: current Alcohol intake frequency: few times a week Alcohol type: hard liquor Desire information about alcohol rehabilitation?: No Counseling given: Yes Other alcohol counseling details: Alcohol & medications don't mix. Substance/Drug Use: never Desire information about substance/drug rehabilitation?: No Counseling given: No Physical Exam Const: COMMON NORMALS: no acute distress, average body habitus, patient oriented x3, no limitations, healthy appearing, alert and well nourished HENMT: COMMON NORMALS: atraumatic, hearing grossly normal bilaterally, external ears normal, Normal external nose present and moist oral mucous membranes HEAD & SCALP: atraumatic NOSE: Normal external nose present EXTERNAL EAR: Yes external ears normal Eye: COMMON NORMALS: Equal, round and reactive pupils present, EOMs intact bilaterally, conjunctivae normal and no scleral icterus CONJUNCTIVA: Yes conjunctivae normal PUPIL: Yes Equal, round and reactive pupils present Neck/C-Spine: COMMON NORMALS: full ROM, no lymphadenopathy, supple, no meningeal signs, no JVD and Thyroid normal THYROID: Thyroid normal Lymph: LYMPHATIC: no lymphadenopathy noted Chest: COMMONS NORMALS: normal inspection of the chest and normal palpation of entire chest wall Resp: COMMON NORMALS: normal respiratory effort, No retractions, No use of accessory muscles and clear to auscultation bilaterally AUSCULTATION: clear to auscultation bilaterally Cardio: COMMON NORMALS: no JVD, regular rate, regular rhythm, S1 normal heart sound present, S2 normal heart sound present, No gallops present (Cardio), No clicks present (Cardio), No murmurs present (Cardio) and No rub (Cardio) RATE: regular rate RHYTHM: regular rhythm HEART SOUNDS: S1 normal heart sound present and S2 normal heart sound present GI: COMMON NORMALS: Normal to inspection, nondistended, normoactive bowel sounds present, Soft to palpation, non-tender, No hepatosplenomegaly present and no masses PALPATION: Yes Soft to palpation and Yes No hepatosplenomegaly present Neuro: COMMON NORMALS: patient oriented x3 SENSORIUM/ORIENTATION: Yes alert MENINGEAL SIGNS: Yes no meningeal signs Course Vital Signs: Vital signs: Vital Signs Temperature 98.0 F 07/15/22 19:02 Pulse Rate 68 07/15/22 21:40 Respiratory Rate 18 07/15/22 21:40 Blood Pressure 116/65 07/15/22 21:40 Pulse Oximetry 94 07/15/22 21:40 Oxygen Delivery Me thod Room Air 07/15/22 21:40 MDM - Chest Pain Medical Decision Making Patient presents to the ER with substernal chest pain rating up into her neck. Patient was pain-free upon her arrival here but was sent over for further work- up from the urgent care. Patient had serial EKGs as well as serial lab work which was benign in nature with a delta troponin of 0. Patient will be discharged with a diagnosis of atypical chest pain and instructed to follow-up with her family practitioner for more further work-up. Differential Diagnosis Unlikely acute massive pulmonary embolism, acute respiratory failure, acute myocardial infarction, cardiac arrest or sudden cardiac Medical Records I reviewed the patient's medical records. Lab Data I reviewed the patient's lab results. 07/15/22 19:47 07/15/22 19:47 Radiology Impressions Chest X-Ray 07/15/22 18:58 IMPRESSION: Small focal opacity noted in the left lung base, possible infiltrate. Laboratory Results WBC 14.0 10^3/uL (4.0-10.0) H 07/15/22 19:47 RBC 4.53 10^6/uL (4.1-5.3) 07/15/22 19:47 Hgb 13.9 g/dL (11.5-15.3) 07/15/22 19:47 Hct 42.9 % (37.0-47.0) 07/15/22 19:47 MCV 94.7 fl (81-99) 07/15/22 19:47 MCH 30.7 pg (28.0-34.0) 07/15/22 19:47 MCHC 32.4 g/dL (30.0-36.0) 07/15/22 19:47 RDW 13.4 % (12.1-15.1) 07/15/22 19:47 Plt Count 317 10^3/cmm (130-400) 07/15/22 19:47 MPV 9.1 fL (7.4-10.4) 07/15/22 19:47 Neut % (Auto) 59.9 % 07/15/22 19:47 Lymph % (Auto) 31.0 % 07/15/22 19:47 [place] % (Auto) 5.6 % 07/15/22 19:47 Eos % (Auto) 2.0 % 07/15/22 19:47 Baso % (Auto) 0.9 % 07/15/22 19:47 Neut # (Auto) 8.37 10^3/uL (1.8-7.7) H 07/15/22 19:47 Lymph # (Auto) 4.3 10^3/uL (0.8-4.8) 07/15/22 19:47 [place] # (Auto) 0.8 10^3/uL (0.2-0.9) 07/15/22 19:47 Eos # (Auto) 0.3 10^3/uL (0.0-0.8) 07/15/22 19:47 Baso # (Auto) 0.1 10^3/uL (0.0-0.1) 07/15/22 19:47 Nucleated RBC % (auto) 0 % 07/15/22:47 Nucleated RBCs # 0.0 /100WBC 07/15/22 19:47 PT 11.80 SECONDS (12.1-14.9) L 07/15/22 19:47 INR 0.85 (0.8-1.2) 07/15/22 19:47 Sodium 137 mmol/L (136-145) 07/15/22 19:47 Potassium 4.6 mmol/L (3.5-5.1) 07/15/22 19:47 Chloride 101 mmol/L (98-107) 07/15/22 19:47 Carbon Dioxide 23 mmol/L (22-29) 07/15/22 19:47 Anion Gap 17.6 (5-19) 07/15/22 19:47 BUN 22 mg/dL (8-23) 07/15/22 19:47 Creatinine 1.3 mg/dL (0.5-0.9) H 07/15/22 19:47 GFR Calculation 41.5 mL/min (90-130) L 07/15/22 19:47 Glucose 95 mg/dL (65-115) 07/15/22 19:47 Calculated Osmolality 287 mOsm/kg (285-295) 07/15/22 19:47 Calcium 9.7 mg/dL (8.5-10.5) 07/15/22 19:47 Total Bilirubin 0.2 mg/dL (0.15-1.2) 07/15/22 19:47 AST 22 U/L (0-32) 07/15/22 19:47 ALT 22 U/L (0-33) 07/15/22 19:47 Alkaline Phosphatase 99 U/L (35-105) 07/15/22 19:47 Troponin T Baseline 6 ng/L (0-10) 07/15/22 19:47 Troponin T 120 Minute 6.00 ng/L (0-10) 07/15/22 21:35 Delta Troponin T 0 ABS# (0-10) 07/15/22 21:35 Total Protein 7.8 g/dL (6.6-8.7) 07/15/22 19:47 Albumin 4.4 g/dL (3.5-5.2) 07/15/22 19:47 Globulin 3.4 g/dL (1.3-4.6) 07/15/22 19:47 EKG Data EKG 1: I personally reviewed and interpreted this EKG as follows: EKG interpretation date: 07/15/22 EKG interpretation time: 21:40 Interpretation: EKG showed normal sinus rhythm, ventricular rate of 66 bpm, WA interval 151, QRS duration 89, QTc 410, no ST-T wave changes. Discharge Plan Discharge Patient Disposition: Home Clinical Impression: Atypical chest pain Condition: Stable Prescriptions: No Action nitroglycerin 0.4 mg tablet, sublingual 0.4 mg sublingual Q5M PRN (Reason: chest pain) Qty: 25 2RF Rx Instructions: do not exceed 3 doses per episode mupirocin 2 % ointment 1 applic topical BID Qty: 22 1RF Rx Instructions: to open areas on arms,legs until healed spironolactone 25 mg tablet 12.5 mg PO DAILY PRN (Reason: weight gain) Qty: 45 1RF nicotine [Nicoderm CQ] 21 mg/24 hr patch 24 hour 1 patch transdermal DAILY Qty: 28 2RF isosorbide mononitrate 10 mg tablet 5 mg PO BID Rx Instructions: take doses 7 hrs apart cyclobenzaprine 10 mg tablet 10 mg PO TID PRN (Reason: muscle spasm) Qty: 60 0RF tramadol 50 mg tablet 50 mg PO BID PRN (Reason: pain) Qty: 45 0RF fluticasone propionate [Flonase Allergy Relief] 50 mcg/actuation spray,susp ension 2 spray intranasal DAILY Qty: 16 0RF Rx Instructions: administer into each nostril (DME) turmeric/curcumin capsule 0 .Route .MEDSUPPLY bupropion HCl [Wellbutrin XL] 300 mg tablet extended release 24 hr 300 mg PO QAM Qty: 30 2RF hydroxyzine HCl 50 mg tablet 50 mg PO QID PRN (Reason: anxiety) Qty: 120 2RF sertraline 100 mg tablet 200 mg PO DAILY Qty: 60 2RF lorazepam [Ativan] 0.5 mg tablet 0.5 mg PO TID PRN (Reason: anxiety) Qty: 21 0RF Spiriva Respimat 1.25 mcg/actuation mist 2 puff inhalation DAILY Qty: 4 3RF amoxicillin 875 mg tablet 875 mg PO BID 10 Days Qty: 20 0RF metoprolol succinate 25 mg tablet extended release 24 hr 12.5 mg PO DAILY Qty: 45 2RF Entresto 24-26 mg tablet 1 tab PO BID Qty: 180 2RF atorvastatin 80 mg tablet 80 mg PO DAILY Qty: 30 5RF levothyroxine 75 mcg tablet 75 mcg PO DAILY 30 Days Qty: 30 5RF gabapentin 300 mg capsule 300 mg PO TID Qty: 240 0RF Rx Instructions: TAKE 1 CAPSULE BY MOUTH THREE TIMES DAILY NEEDED FOR PAIN (730AM , 2PM, 10PM) calcium carbonate-vitamin D3 600 mg(1,500mg) -200 unit Tablet 1 tab PO DAILY@0730 aspirin 81 mg Tablet,Delayed Release (Dr/Ec) 81 mg PO DAILY@0730 vitamin B complex Tablet 1 tab PO DAILY@0730 One-A-Day Women's 50 Plus 1 tab PO DAILY@0730 Discharge Orders: Discharge ED (Routine); Ordered 07/15/22 Ordered By: Delbert Wilkinson Referrals: Mariaa Smith DO [Primary Care Provider] - 1 week Patient Instructions: Opioid Safety, Pain Management Coding Level of Care Code 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
[2022-07-15 22:11] LABS: Troponin 5 2HR Delta 0 ABS# (0-10)
[2022-07-15 22:33] VITALS: BP 143/87; PULSE 75; RESP 19; O2SAT 96
[2022-07-15 22:34] VITALS: BP 143/87; PULSE 67; RESP 18; O2SAT 97
== END 2022-07-15 22:37 | disposition home or self-care (01) ==
PROVIDERS: Emergency Medicine; Emergency Provider Emergency Medicine; PCP Family Medicine
DX: R07.89 Other chest pain (principal); Z79.82 Long term (current) use of aspirin; F17.210 Nicotine dependence, cigarettes, uncomplicated; F17.290 Nicotine dependence, other tobacco product, uncomplicated; I11.0 Hypertensive heart disease with heart failure; I50.9 Heart failure, unspecified
CPT/HCPCS: 36415; 71045; 80053; 84484; 85025; 85610; 87071; 87880; 93005; 99285

== ENCOUNTER 2022-07-31 12:59 | Outpatient (CLI) | payer MEDICAID, SELFPAY ==
[2022-08-04 18:25] LABS: Bermuda Class 0; Bermuda Grass (G2) Ige <0.10 kU/L; Cat Dander (E1) Ige <0.10 kU/L; Cat Dander Class 0; Dog Dander (E5) Ige <0.10 kU/L; Dog Dander Class 0; Immunoglobulin E 52 kU/L (<OR=114); Johnson Grass (G10) Ige <0.10 kU/L; Johnson Grass Cl 0; June Grass Class 0; June Grass(Kentucky Blue) (G8) <0.10 kU/L; Meadow Fescue (G4) Ige <0.10 kU/L; Meadow Fescue Class 0; Orchard Grass (Cocksfoot) (G3) <0.10 kU/L; Perennial Rye Grass (G5) Ige <0.10 kU/L; Perennial Rye Grass Class 0; Sweet Vernal Class 0; Sweet Vernal Grass (G1) Ige <0.10 kU/L; Timothy Grass (G6) Ige <0.10 kU/L; Timothy Grass Class 0
[2022-08-04 18:29] LABS: Alternaria Alternata (M6) Ige <0.10 kU/L; Alternaria Class 0; Common Ragweed (Short) (W1) Ig <0.10 kU/L; D. Farinae Class 0; Dermatophagoides Class 0; Dermatophagoides Farinae (D2) <0.10 kU/L; Dermatophagoides Pteronyssinus <0.10 kU/L; Elm (T8) Ige <0.10 kU/L; Elm Class 0; English Plantain (W9) Ige <0.10 kU/L; English Plantain Class 0; House Dust (Greer) (H1) Ige <0.10 kU/L; House Dust (Hollister- Stier) <0.10 kU/L; House Dust Class 0; Lamb'S Quarters (Goose Foot) <0.10 kU/L; Lamb'S Quarters Class 0; Maple (Box Elder) (T1) Ige <0.10 kU/L; Maple Class 0; Mucor Racemosus Class 0; Oak (T7) Ige <0.10 kU/L; Oak Class 0; Penicillium Class 0; Penicillium Notatum (M1) Ige <0.10 kU/L; Ragweeed Class 0; Rough Marsh Elder (W16) Ige <0.10 kU/L; Rough Marsh Elder Class 0
[2022-08-05 18:33] LABS: Aspergillus Fumigatus, Igg Ab, 19.1 mg/L (<=102)
== END 2022-07-31 13:00 | disposition home or self-care (01) ==
LOC: RT 13:03
PROVIDERS: PCP Family Medicine; Visit Provider Internal Medicine Pulmonary Disease
DX: R06.09 Other forms of dyspnea (principal); R76.8 Other specified abnormal immunological findings in serum; R06.02 Shortness of breath
CPT/HCPCS: 36415; 82785; 86003; 86200; 86431; 94010; 94618; 94726; 94729

== ENCOUNTER → 2022-08-08 12:14 | Outpatient (BNVA) | payer MEDICAID, SELFPAY | PROVIDERS: PCP Family Medicine; Visit Provider Internal Medicine | DX: L40.9 Psoriasis, unspecified (principal); R76.8 Other specified abnormal immunological findings in serum | CPT/HCPCS: 36415; 72202; 73120; 81003; 82164; 82550; 82570; 84156; 84166; 85651; 86140; 86480; 86812 ==

== ENCOUNTER 2022-10-10 14:19 | Outpatient (CLI) | payer MEDICAID, SELFPAY ==
--- NOTE | 2022-10-10 14:30 | USCV_ITS ---
Sanchez Ryan Age: 62 Gender: F : 1960 Exam Date: 10/10/2022 15:15 Ordering Phys: Jamir Song MD Technologist: CT Exam Location: [facility] [place] Indication: ef eval,chf BP: 145 / 75 HR: 66 Rhythm: Sinus Technical Quality: Adequate MEASUREMENTS (Male / Female) Normal Values 2D ECHO LV Chamber Size 5.0 cm RV Chamber Size 3.5 cm LVOT Diameter 2.2 cm LV Ejection Fraction MOD 2C 59.9 % LV Ejection Fraction 2C AL 60.1 % LA Diameter 3.6 cm LA Width 4.3 cm LA Height 4.7 cm RA Width 3.1 cm RA Height 4.2 cm Aorta at Sinotubular Diameter 1.9 cm IVC Diameter 1.5 cm M-MODE Aortic Annulus Diameter 3.1 cm LA Ao Ratio MM 1.3 MV E Point Septal Separation 0.8 cm DOPPLER AV Peak Velocity 160.0 cm/s LVOT Peak Velocity 109.0 cm/s AV Area Cont Eq vti 2.8 cm squared AV Area Cont Eq pk 2.5 cm squared MV Peak Velocity 103.0 cm/s MV Area PHT 3.0 cm squared Mitral E to A Ratio 1.0 MV E' Velocity 51.0 cm/s Mitral E to MV E' Ratio 9.8 Mitral E to LV E' Lateral Ratio 8.6 Mitral E to LV E' Septal Ratio 11.6 TR Peak Velocity 110.0 cm/s TR Peak Gradient 4.8 mmHg TV Peak E Velocity 64.0 cm/s Right Atrial Pressure 3.0 mmHg Pulmonary Artery Systolic Pressu 7.8 mmHg PV Peak Velocity 103.0 cm/s FINDINGS Left Ventricle Left ventricle is normal in size. LV systolic function is normal with EF of 55 to 60%. No regional wall motion abnormalities are seen. Right Ventricle Normal in size and function Right Atrium Normal in size Left Atrium Normal in size Mitral Valve Structurally normal mitral valve. Trace mitral regurgitation. Aortic Valve Structurally normal aortic valve. No significant stenosis or regurgitation. Tricuspid Valve Trace tricuspid regurgitation. Insufficient TR jet to calculate RVSP. Pulmonic Valve Not well visualized Pericardium Normal Aorta Normal in size IVC Appears to be normal CONCLUSIONS LV systolic function is normal with EF of 55- 60% Trace mitral regurgitation Trace tricuspid regurgitation Compared to prior echocardiogram from 2020, no significant changes are seen Abdelrahman Land MD (Electronically Signed) Final Date: 10 October 2022 16:43 S
== END 2022-10-10 14:20 | disposition home or self-care (01) ==
LOC: RAD 14:20
PROVIDERS: PCP Family Medicine; Visit Provider Internal Medicine Pulmonary Disease
DX: I50.9 Heart failure, unspecified (principal); I08.1 Rheumatic disorders of both mitral and tricuspid valves
CPT/HCPCS: 93306

== ENCOUNTER 2022-10-13 12:23 | Outpatient (CLI) | payer MEDICAID, SELFPAY ==
--- NOTE | 2022-10-13 12:30 | CT_ITS ---
WS: [id number] CT CHEST TECHNIQUE: Noncontrast CT of the chest with coronal and sagittal reformatted images. CLINICAL INFORMATION: to follow up on right middle lobe lesion COMPARISON: CT chest June 17, 2022 PET/CT June 02, 2022 DLP: 306.[address] scans at [facility] use at least one of these dose optimization techniques: automated e xposure control; mA and/or kV adjustment per patient size (includes targeted exams where dose is matc hed to clinical indication); or iterative reconstruction. FINDINGS: Previously described spiculated mass in the RIGHT middle lobe appears slightly smaller and less dense today. This measures approximately 1.3 x 0.5 cm with surrounding spiculation. No evidence of progres holly. Stable tiny FDG avid nodule nodule LEFT upper lobe along the mediastinum measuring 4.7 mm is un changed. Moderate chronic emphysematous changes. Bibasilar atelectasis. Aortic calcification. Normal caliber t horacic aorta. Coronary calcification. No axillary lymphadenopathy. No mediastinal or hilar lymphaden opathy. Tiny esophageal hiatal hernia. Adrenal glands are normal. Mild thoracic curve. Mild thoracic kyphosis. Anterior hypertrophic changes thoracic spine. CT/CT chest wo con [id number] IMPRESSION: 1. Previously described spiculated mass in the RIGHT middle lobe smaller and l ess dense today. This measures approximately 1.3 x 0.5 cm with surrounding spic ulation. No evidence of progression. 2. Stable tiny nodule LEFT upper lobe along the mediastinum measuring 4.7 mm i s unchanged
== END 2022-10-13 12:24 | disposition home or self-care (01) ==
PROVIDERS: PCP Family Medicine; Visit Provider Internal Medicine Pulmonary Disease
DX: R91.8 Other nonspecific abnormal finding of lung field (principal)
CPT/HCPCS: 71250

== ENCOUNTER → 2022-10-30 10:35 | Outpatient (BNVA) | payer MEDICARE, MEDICAID, SELFPAY | PROVIDERS: PCP Family Medicine; Visit Provider Family Medicine | DX: E03.9 Hypothyroidism, unspecified (principal) | CPT/HCPCS: 84443 ==

== ENCOUNTER → 2022-11-13 14:03 | Outpatient (BNVA) | payer MEDICARE, SELFPAY | PROVIDERS: PCP Family Medicine; Visit Provider Orthopaedic Surgery | DX: M48.062 Spinal stenosis, lumbar region with neurogenic claudication (principal) | CPT/HCPCS: 99214 ==

== ENCOUNTER → 2022-11-21 11:10 | Outpatient (BNVA) | payer MEDICARE, MEDICAID, SELFPAY | PROVIDERS: PCP Family Medicine; Visit Provider Family Medicine | DX: Z01.818 Encounter for other preprocedural examination (principal) | CPT/HCPCS: 80053; 81003; 85025 ==

== ENCOUNTER → 2022-11-27 13:56 | Outpatient (BNVA) | payer MEDICARE, SELFPAY | PROVIDERS: PCP Family Medicine; Visit Provider Internal Medicine Cardiovascular Disease | DX: I13.0 Hypertensive heart and chronic kidney disease with heart failure and stage 1 through stage 4 chronic kidney disease, or unspecified chronic kidney disease (principal); I50.9 Heart failure, unspecified; N18.32 Chronic kidney disease, stage 3b; R76.8 Other specified abnormal immunological findings in serum; I44.7 Left bundle-branch block, unspecified; F17.219 Nicotine dependence, cigarettes, with unspecified nicotine-induced disorders | CPT/HCPCS: 99214 ==

== ENCOUNTER 2022-11-28 07:03 | Day surgery (SDC) | payer MEDICARE, MEDICAID, SELFPAY ==
[2022-11-27 10:18] VITALS: BMI 30.4
[2022-11-28] VITALS (13 sets, daily range): BP systolic 120–141; BP diastolic 68–80; PULSE 69–78; RESP 16–18; TEMP 36.2–36.4; O2SAT 92–100; BMI 30.4
--- NOTE | 2022-11-28 | XR_ITS ---
WS: [id number] Exam: XR lumbar spine 1V [id number] Date/Time of Exam: 11/28/2022 12:00 AM Reason For Exam: lumbar decompression l3-4; l4-5 Intraoperative anterior posterior C-arm images of the lower lumbar spine are obtained for intraoperat [place] purposes.
[2022-11-28] MEDS: sodium chloride 0.9% 1,000 ML 30 ML IV (07:40)
--- NOTE | 2022-11-28 08:18 | W.PM.OPSUD ---
Surgery/Procedure H&P Update DATE OF PROCEDURE: November 28, 2022 DATE H&P PERFORMED: 11/13/22 H&P UPDATE INFORMATION: I have reviewed H&P completed within last 30 days, I have examined patient prior to procedure and No changes to prior documentation PREOP DIAGNOSIS: Lumbar stenosis with neurogenic claudication PLANNED PROCEDURE: Operation Date: 11/28/22 07:45 Proposed Procedures p Lumbar Spine Decompression/(Stand on Left)L3-4 L4-5 bilateral decompression(Bilateral) - Price Martin DO
--- NOTE | 2022-11-28 08:53 | P.ANESASSM_ITS ---
Pre-Anesthetic Assessment Height/Weight: Height 1.73 m Weight 90.718 kg Temp Pulse Resp BP Pulse Ox O2 Del Method 97.5 F L 70 17 126/80 95 Room Air 11/28/22 07:23 11/28/22 07:23 11/28/22 07:23 11/28/22 07:23 11/28/22 07:23 11/28/22 07:24 Preop Diagnosis: Lumbar stenosis with neurogenic claudication Operation Date: 11/28/22 07:45 Proposed Procedures p Lumbar Spine Decompression/(Stand on Left)L3-4 L4-5 bilateral decompression(Bilateral) - Price Martin, DO Familial anesthetic complications: none Was Beta Christian taken within 24 hours: Yes Was Clonidine taken within 24 hours: N/A Last intake: Intake Last Liquid Date 11/27/22 Last Liquid Time 23:45 Last Solid Date 11/27/22 Last Solid Time 23:45 Social Tobacco and No alcohol Exam alert, oriented x 3, clear to auscultation bilaterally and regular rate & rhythm Airway Submandibular: within normal limits Cervical ROM: within normal limits Mallampati: Class III Dentition: caps and full Pulmonary Chronic Obstructive Pulmonary Disease CV/HEM Coronary Artery Disease, Congestive Heart Failure and Hypertension ?CONCLUSIONS ?LV systolic function is normal with EF of 55- 60% ?Trace mitral regurgitation ?Trace tricuspid regurgitation ?Compared to prior echocardiogram from 2020, no significant ?changes are seen ?Abdelrahman Land MD ?(Electronically Signed) ?Final Date:? ? ? 10 October 2022 Chronic Renal Insufficiency Metabolic Morbid Obesity and Thyroid Disease [facility] [place] Lower Back Pain and Osteoarthritis/DJD Neuropsych Anxiety, Depression and Neuropathy Anesthetic Plan ASA status: 3 Anesthesia: General Medications/Allergies Home Medications Medication Instructions Recorded Confirmed Last Taken Type One-A-Day Women's 50 Plus 1 tab PO DAILY@72905/04/20 11/28/22 11/21/22 History aspirin 81 mg tablet,delayed 81 mg PO DAILY@72905/04/20 11/27/22 11/21/22 History release calcium carbonate 600 mg-vitamin 1 tab PO DAILY@72905/04/20 11/27/22 11/21/22 History D3 5 mcg (200 unit) tablet vitamin B complex 1 tab PO DAILY@72905/04/20 11/28/22 11/21/22 History nitroglycerin 0.4 mg sublingual 0.4 mg sublingual Q5M PRN chest 10/01/20 11/27/22 06/16/22 Rx tablet pain #25 tabs turmeric/curcumin 07/26/21 11/27/22 06/15/22 History mupirocin 2 % topical ointment 1 applic topical BID #22 grams 11/25/21 11/27/22 06/16/22 Rx cyclobenzaprine 10 mg tablet 10 mg PO TID PRN muscle spasm #60 04/02/22 11/27/22 06/16/22 Rx tabs tramadol 50 mg tablet 50 mg PO BID PRN pain #45 tabs 04/02/22 11/28/22 11/27/22 Rx lorazepam 0.5 mg tablet (Ativan) 0.5 mg PO TID PRN anxiety #21 tabs 06/03/22 11/27/22 06/16/22 Rx gabapentin 300 mg capsule 300 mg PO TID #240 caps 08/13/22 11/27/22 11/27/22 Rx fluticasone propionate 50 2 spray intranasal DAILY PRN 09/29/22 11/27/22 Unknown History mcg/actuation nasal Allergy Symptoms spray,suspension (Flonase Allergy Relief) tiotropium bromide 1.25 2 puff inhalation DAILY #4 grams 10/20/22 11/28/22 11/27/22 Rx mcg/actuation mist for inhalation (Spiriva Respimat) budesonide-formoterol HFA 80 2 puff inhalation BID #10.2 grams 10/21/22 11/27/22 Unknown Rx mcg-4.5 mcg/actuation aerosol inhaler (Symbicort) hydroxyzine HCl 50 mg tablet 50 mg PO QID PRN anxiety #120 tabs 10/22/22 11/27/22 11/27/22 Rx isosorbide mononitrate 10 mg tablet 5 mg PO BID #90 tabs 10/22/22 11/27/22 11/27/22 Rx metoprolol succinate 25 mg 12.5 mg PO DAILY #45 tabs 10/22/22 11/27/22 11/27/22 Rx tablet,extended release 24 hr spironolactone 25 mg tablet 12.5 mg PO DAILY PRN weight gain 10/22/22 11/28/2223 Rx #45 tabs atorvastatin 80 mg tablet 80 mg PO DAILY #90 tabs 10/30/22 11/28/22 11/27/22 Rx levothyroxine 75 mcg tablet 75 mcg PO DAILY 30 days #90 tabs 11/02/22 11/27/22 11/27/22 Rx bupropion HCl 300 mg 24 hr tablet, 300 mg PO QAM #30 tabs 11/27/22 11/28/22 Unknown Rx extended release (Wellbutrin XL) sertraline 100 mg tablet 200 mg PO DAILY #60 tabs 11/27/22 11/28/22 11/27/22 Rx Allergies Allergy/AdvReac Type Severity Reaction Status Date / Time No Known Allergies Allergy Verified 11/27/22 14:15 Current Medications Generic Name Dose Route Start Last Admin Trade Name Freq PRN Reason Stop Dose Admin Sodium Chloride 1,000 mls @ 30 mls/hr 11/28/22 07:15 11/28/22 07:40 Sodium Chloride 0.9% IV 11/29/22 07:14 30 mls/hr .Q24H JANETT Administration PFSH Anesthesia Medical History Anxiety Back pain, chronic CHF (NYHA class III, ACC/AHA stage C) LVEF 35% Depression History of nonmelanoma skin cancer History of rheumatic fever as a child Hypercholesterolemia Hypertension Hypothyroidism LBBB (left bundle branch block) Multiple sites, insect bite, nonvenomous Osteoarthritis Psychiatric care Unstable angina Urinary incontinence, mixed Surgical History H/O left wrist surgery H/O Spinal surgery ALDF and ACDF. H/O vaginal surgery Urethral sling History of 2 sections S/P colonoscopy S/P excision of lipoma Right buttocks. S/P lumpectomy, left breast S/P tonsillectomy Family History Mother Anemia Alzheimer disease Father Heart disease Hypertension Kidney disease COPD (chronic obstructive pulmonary disease) Social History Smoking and tobacco status: current every day smoker cigarettes Packs smoked per day: 1 Years cigarettes smoked: 46 [ Other cigarette details: started age 15] and e-cigarettes E-Cigarette Details: vaporizer device and with nicotine E- cig/vape details: Refill/2 weeks. Quit status (tobacco): has quit using tobacco Year quit tobacco: 2021 Second hand smoke exposure: Yes Smoking risk assessment/counseling performed?: No Alcohol intake: current Alcohol intake frequency: few times a week Alcohol type: hard liquor Desire information about alcohol rehabilitation?: No Counseling given: Yes Other alcohol counseling details: Alcohol & medications don't mix. Substance/Drug Use: never Desire information about substance/drug rehabilitation?: No Counseling given: No Data Anesthesia Cardiac Studies: Echocardiogram 10/10/22 Echocardiogram Limited Views 08/03/20 Echocardiogram Ultrasound 05/04/20 Sestamibi Stress Test (Cardiology) 05/04
[2022-11-28] MEDS: ceFAZolin 2,000 MG in sodium chloride 0.9% (plus) 50 ML 100 MG IV (08:55)
[2022-11-28] MEDS: lidocaine-epi 1% 20 mL INJ INJECTION (09:44)
--- NOTE | 2022-11-28 10:34 | PM.OP ---
Operative Report Date of procedure: November 28, 2022 Pre-op diagnosis: Lumbar stenosis with neurogenic claudication Post-op diagnosis: same Procedure done: 1. L3-4 laminectomy with partial facetectomy 2. L4-5 laminectomy with partial facetectomy Surgeon: Price Martin DO Clinical Research Spec: Catrachito Lopez Clinical Research Spec: The director surgical, Catrachito Lopez, SENDY was needed for his expertise under the microscope. He was important and necessary throughout the procedure to complete in a safe and timely manner. He assisted with patient positioning prepping and draping tissue retraction suctioning of the operative field protection of the dural sac and tissue closure Estimated blood loss (mL): 15 Procedure: 1. L3-4 laminectomy with partial facetectomy 2. L4-5 laminectomy with partial facetectomy Patient is brought to the operative suite. After undergoing anesthesia they are placed in the prone position. All areas of impingement are well padded. Patient is then prepped and draped in the normal sterile fashion. A skin incision is made over the L3-4 level. This is confirmed under c-arm guidance. A series of dilators are passed and the tubular retractor is docked on the L3 lamina. A bovie is used to clear the soft tissue off the lamina and the L 3 4 facet joint. A high speed escobar is then used to perform the laminectomy and take down the medial aspect of the L 3 4 facet joint. A kerrison rongeure was then used to take down the remaining lamina and smooth the edged of the laminectomy up to the point where the ligamentum flavum attaches. Attention was then brought to the medial aspect of the facet joint. The remaining medial aspect of the superior and inferior aspect of the facet joint were taken down with the kerrison from the pedicle of L3 to L 4. The facet joint had significant hypertrophy. Attention was then brought to the Ligamentum Flavum. The ligament was taken down from the lamina of L3 to L4 and out medially to the remaining facet joint. The ligament was thick. The dura was then exposed. The dura was in good repair. The L3 nerve was then traced with a curette out the L3/4 foramen and found to be adequately decompressed. The L4 nerve was traced with a curette around the L4 pedicle. The lateral recess was opened with a kerrison helping to further decompress the L4 nerve. The tubular retractor was then tilted to the contralateral side. The bovie was used to take down the soft tissue on the spinous process. The high speed escobar was used to take down the spinous process and then the contralateral lamina of L3. The kerrison rongeur was used to take down the remaining lamina to the point where the ligamentum flavum attached and the ligamentum flavum was taken down from L3 to L4. The kerrison rongeur was then used to reach across and take down the medial aspect of the contralateral L3/4 facet joint.The currete was used to trace the contralateral L3 nerve out the L3/4 foramen to make sure it was decompressed adequatesly and the L4 was traced around the L4 pedicle. The lateral recess was opened further with the kerrison to ensure the L4 is adequately decompressed. Wound is then irrigated copiously with saline and surgiflo is used to stop any bleeding. The tubular retractor is removed and the A skin incision is made over the L4/5 level. This is confirmed under c-arm guidance. A series of dilators are passed and the tubular retractor is docked on the L4 lamina. A bovie is used to clear the soft tissue off the lamina and the L 4/5 facet joint. A high speed escobar is then used to perform the laminectomy and take down the medial aspect of the L 4/5 facet joint. A kerrison rongeure was then used to take down the remaining lamina and smooth the edged of the laminectomy up to the point where the ligamentum flavum attaches. Attention was then brought to the medial aspect of the facet joint. The remaining medial aspect of the superior and inferior aspect of the facet joint were taken down with the kerrison from the pedicle of L4 to L 5. The facet joint had significant hypertrophy. Attention was then brought to the Ligamentum Flavum. The ligament was taken down from the lamina of L4 to L5 and out medially to the remaining facet joint. The ligament was thick. The dura was then exposed. The dura was in good repair. The L4 nerve was then traced with a curette out the L4/5 foramen and found to be adequately decompressed. The L5 nerve was traced with a curette around the L5 pedicle. The lateral recess was opened with a kerrison helping to further decompress the L5 nerve. The tubular retractor was then tilted to the contralateral side. The bovie was used to take down the soft tissue on the spinous process. The high speed escobar was used to take down the spinous process and then the contralateral lamina of L4. The kerrison rongeur was used to take down the remaining lamina to the point where the ligamentum flavum attached and the ligamentum flavum was taken down from L4 to L5. The kerrison rongeur was then used to reach across and take down the medial aspect of the contralateral L4/5 facet joint.The currete was used to trace the contralateral L4 nerve out the L4/5 foramen to make sure it was decompressed adequatesly and the L5 was traced around the L5 pedicle. The lateral recess was opened further with the kerrison to ensure the L5 is adequately decompressed. Wound is then irrigated copiously with saline and surgiflo is used to stop any bleeding. The tubular retractor is removed and the wound is closed with vicryl and monocryl suture. Glue is then used to protect the wound. A sterile dressing is then placed. Patient was then placed in the supine position and transferred to the PACU in stable condition.
[2022-11-28] MEDS: fentaNYL 50 mcg/mL INJ 2mL IVP (11:06)
[2022-11-28] MEDS: HYDROcodone-acetaminophen 5-325 mg Tablet 2 TAB PO (12:04)
--- NOTE | 2022-11-28 12:50 | ANE.PACU2 ---
Inpatient post-anesthesia follow up: Airway intact: Yes Vital signs: Temperature 97.1 F Pulse Rate 71 Respiratory Rate 18 Blood Pressure 135/70 Pulse Oximetry 94 Oxygen Delivery Me thod Room Air Oxygen Flow Rate 6 Fraction of Inspir ed Oxygen Hydration adequate: Yes Nausea and vomiting: No Pain level: 3 Mental status: Baseline
== END 2022-11-28 12:59 | disposition home or self-care (01) ==
PROVIDERS: PCP Family Medicine; Visit Provider Orthopaedic Surgery
PROC: (CPT 63005; principal; 2022-11-28 07:45)
DX: M48.062 Spinal stenosis, lumbar region with neurogenic claudication (principal); J44.9 Chronic obstructive pulmonary disease, unspecified; I25.10 Atherosclerotic heart disease of native coronary artery without angina pectoris; I11.0 Hypertensive heart disease with heart failure; I50.9 Heart failure, unspecified; E66.01 Morbid (severe) obesity due to excess calories; Z68.30 Body mass index [BMI] 30.0-30.9, adult; Z79.82 Long term (current) use of aspirin; E78.00 Pure hypercholesterolemia, unspecified; E03.9 Hypothyroidism, unspecified; F17.210 Nicotine dependence, cigarettes, uncomplicated
CPT/HCPCS: 63047; 63048; 72020; 76000; J0131; J0690; J1100; J2371; J2405; J2704; J2710; J3010; J3490; J7030

== ENCOUNTER → 2022-12-11 13:20 | Outpatient (BNVA) | payer MEDICARE, MEDICAID, SELFPAY | PROVIDERS: PCP Family Medicine; Visit Provider Orthopaedic Surgery | DX: Z47.89 Encounter for other orthopedic aftercare (principal) | CPT/HCPCS: 99024 ==

== ENCOUNTER → 2022-12-24 13:51 | Outpatient (BNVA) | payer MEDICARE, MEDICAID, SELFPAY | PROVIDERS: PCP Family Medicine; Visit Provider Internal Medicine | DX: M19.90 Unspecified osteoarthritis, unspecified site (principal); R76.8 Other specified abnormal immunological findings in serum; R06.09 Other forms of dyspnea | CPT/HCPCS: 36415; 83520; 85651; 86140; 86200; 99214 ==

== ENCOUNTER → 2022-12-31 10:41 | Outpatient (BNVA) | payer MEDICARE, SELFPAY | PROVIDERS: PCP Family Medicine; Visit Provider Nurse Practitioner Family | DX: Z85.828 Personal history of other malignant neoplasm of skin (principal); L82.1 Other seborrheic keratosis; L70.5 Acne excoriee; L98.1 Factitial dermatitis; L57.8 Other skin changes due to chronic exposure to nonionizing radiation | CPT/HCPCS: 99214 ==

== ENCOUNTER → 2023-01-15 10:37 | Outpatient (BNVA) | payer MEDICARE, MEDICAID, SELFPAY | PROVIDERS: PCP Family Medicine; Visit Provider Orthopaedic Surgery | DX: Z47.89 Encounter for other orthopedic aftercare | CPT/HCPCS: 99024 ==

== ENCOUNTER 2023-01-16 15:44 | Outpatient (CLI) | payer MEDICARE, MEDICAID, SELFPAY ==
--- NOTE | 2023-01-16 16:00 | CTR_ITS ---
PROCEDURE INFORMATION: Exam: CT Chest Without Contrast; Diagnostic Exam date and time: 01/16/2023 3:52 PM Age: 62 years old Clinical indication: Condition or disease; Lung condition and disease; Pulmonary nodule, solitary; Prior surgery; Surgery date: 6+ months; Surgery type: Left breast; Additional info: Follow up on lung nodules TECHNIQUE: Imaging protocol: Diagnostic computed tomography of the chest without contrast. Radiation optimization: All CT scans at this facility use at least one of these dose optimization techniques: automated exposure control; mA and/or kV adjustment per patient size (includes targeted exams where dose is matched to clinical indication); or iterative reconstruction. REPORTING DATA: Count of CT and Cardiac NM exams in prior 12 months: This patient has received 4 known CTs and 0 known cardiac nuclear medicine studies in the 12 months prior to the current study. COMPARISON: CT chest [facility] [id number] 10/13/2022 12:45 PM RADIATION DOSE METRICS: Total DLP (mGy-cm): 440.85 FINDINGS: Lungs: Mild subpleural fibrosis in the lungs bilaterally. Mild centrilobular emphysema. Small area of fibrosis demonstrated in the anterior right lower lobe noted, representing further resolution of previously noted nodular density in this region. There is no suspicious pulmonary nodule noted. Pleural spaces: Unremarkable. No pneumothorax. No pleural effusion. Heart: No cardiomegaly. No pericardial effusion. Coronary arteries: The coronary arteries demonstrate atherosclerotic calcifications. Lymph nodes: Unremarkable. No enlarged lymph nodes. Vasculature: Atherosclerosis of the aorta. No aneurysm. Bones/joints: Degenerative spine changes are noted. Soft tissues: Unremarkable. CT/CT chest wo con [id number] IMPRESSION: 1. There is no suspicious pulmonary nodule noted. Previously noted right middle lobe nodule has almost completely resolved. 2. No additional pulmonary nodules are identified. No acute infiltrates. COMMENTS: In the absence of a history or active diagnosis of lung cancer, it is recommended that this patient with emphysema be evaluated for enrollment in a low dose CT lung cancer screening program.
== END 2023-01-16 15:45 | disposition home or self-care (01) ==
PROVIDERS: PCP Family Medicine; Visit Provider Internal Medicine Pulmonary Disease
DX: R91.8 Other nonspecific abnormal finding of lung field (principal)
CPT/HCPCS: 71250

== ENCOUNTER 2023-02-25 09:49 | Outpatient (CLI) | payer MEDICARE, MEDICAID, SELFPAY ==
--- NOTE | 2023-02-25 10:00 | FL_ITS ---
WS: [id number] Exam: FL barium swallow [id number] Date/Time of Exam: 02/25/2023 9:57 AM Reason For Exam: Fluoroscopy time: 2min [id number] minutes # of spot films: Anterior cervical fusion with plate and screw fixation from C3-C6 with intervening disc spacers. Oral pharyngeal phase of swallowing was normal. The esophagus is smooth in contour. No sign of esopha geal stricture or mass. Normal motility noted. The esophagus is not displaced. No hiatal hernia or ga stroesophageal reflux. IMPRESSION: 1. No sign of esophageal stricture, mass, motility disorder or other significant finding. Negative.
== END 2023-02-25 09:50 | disposition home or self-care (01) ==
LOC: RAD 09:50
PROVIDERS: PCP Family Medicine; Visit Provider Internal Medicine Pulmonary Disease
DX: R13.10 Dysphagia, unspecified (principal)
CPT/HCPCS: 74220

== ENCOUNTER → 2023-04-23 11:41 | Outpatient (BNVA) | payer OTHER, MEDICAID, SELFPAY | PROVIDERS: PCP Family Medicine; Visit Provider Family Medicine | DX: E78.00 Pure hypercholesterolemia, unspecified (principal); Z13.6 Encounter for screening for cardiovascular disorders; E03.9 Hypothyroidism, unspecified; N18.32 Chronic kidney disease, stage 3b; M75.51 Bursitis of right shoulder | CPT/HCPCS: 80053; 80061; 80069; 84443 ==

== ENCOUNTER → 2023-04-27 09:56 | Outpatient (BNVA) | payer MEDICARE, MEDICAID, SELFPAY | PROVIDERS: PCP Family Medicine; Referring Provider Family Medicine; Visit Provider Surgery | DX: Z86.010 Personal history of colon polyps (principal); K21.9 Gastro-esophageal reflux disease without esophagitis; R19.4 Change in bowel habit | CPT/HCPCS: 99204; 99214 ==

== ENCOUNTER 2023-05-04 13:53 | Outpatient (CLI) | payer MEDICARE, SELFPAY ==
--- NOTE | 2023-05-04 13:57 | MM_ITS ---
WS: [id number] BILATERAL 3D TOMOSYNTHESIS DIGITAL SCREENING MAMMOGRAM WITH CAD CLINICAL INFORMATION: screening mammogram HISTORY: Screening mammogram. No current complaints. COMPARISON: 2021 TECHNIQUE: Bilateral CC and MLO. FINDINGS: The breast are composed of extremely dense tissue, which can limit the detection of small underlying mass lesions. No suspicious focal mass, asymmetry, calcifications, or architectural distortion. No ev idence of malignancy. A few tiny incidental punctate calcifications. IMPRESSION: MM/[place] [id number] BI-RADS: 2-Benign FOLLOW UP: 1 Year Follow-up Recommend return to annual screening mammography.
== END 2023-05-04 13:54 | disposition home or self-care (01) ==
LOC: RAD 13:53
PROVIDERS: PCP Family Medicine; Visit Provider Family Medicine
DX: Z12.31 Encounter for screening mammogram for malignant neoplasm of breast (principal); E03.9 Hypothyroidism, unspecified; R92.30 Dense breasts, unspecified
CPT/HCPCS: 77063; 77067

== ENCOUNTER 2023-05-09 15:31 | Emergency (ER) | payer MEDICARE, MEDICAID, SELFPAY ==
[2023-05-09 15:45] VITALS: BP 108/70; PULSE 92; RESP 16; TEMP 36.7; O2SAT 97; BMI 32.5
--- NOTE | 2023-05-09 17:31 | CTR_ITS ---
PROCEDURE INFORMATION: Exam: CT Abdomen And Pelvis With Contrast Exam date and time: 05/09/2023 6:02 PM Age: 62 years old Clinical indication: Abdominal pain; Localized; Right lower quadrant (rlq); Prior surgery; Surgery date: 6+ months; Surgery type: Breast lumpectomy. Lumbar fusion. Urethral sling. Csection. Patient HX: C/O rlq pain; Additional info: Right lower quadrant pain TECHNIQUE: Imaging protocol: Computed tomography of the abdomen and pelvis with contrast. Radiation optimization: All CT scans at this facility use at least one of these dose optimization techniques: automated exposure control; mA and/or kV adjustment per patient size (includes targeted exams where dose is matched to clinical indication); or iterative reconstruction. Contrast material: OMNI 350; Contrast volume: 80 ml; Contrast route: INTRAVENOUS (IV); COMPARISON: CR XR hip LT 2-3V wo/w pel* [id number] 08/05/2021 10:24 AM RADIATION DOSE METRICS: Total DLP (mGy-cm): 927.37 FINDINGS: Lungs: Visualized lung bases demonstrate minimal dependent atelectasis. Liver: The liver is unremarkable. Gallbladder and bile ducts: The gallbladder is unremarkable. No biliary ductal dilatation. Pancreas: The pancreas is unremarkable. Spleen: The spleen is unremarkable. Adrenal glands: The adrenal glands are unremarkable. Kidneys and ureters: Subcentimeter hypoattenuating lesion in the left kidney, too small to further characterize, likely cyst. Right kidney is normal in appearance. No evidence of renal stones. No hydronephrosis or hydroureter. Stomach and bowel: Nonobstructive bowel-gas pattern. Nonobstructive bowel gas pattern. Mild colonic stool burden, which can be seen in the clinical setting of constipation. Appendix: The appendix is well-visualized and is normal in appearance. Intraperitoneal space: No significant free fluid in the abdomen or pelvis. Vasculature: Mild scattered calcific disease of the aorta and its major branches. No abdominal aortic aneurysm. Lymph nodes: No suspicious lymphadenopathy. Urinary bladder: Urinary bladder is within normal limits. Reproductive: Visualized reproductive structures are within normal limits. Bones/joints: Status post posterior kacie and screw fusion of L5-S1. No acute osseous findings. Soft tissues: Visualized superficial soft tissues are within normal limits. CT/CT abdomen pelvis w con* [id number] IMPRESSION: 1. Mild colonic stool burden, which can be seen in the clinical setting of constipation. 2. Study is otherwise negative for acute findings. COMMENTS: Consistent with the [employer]'s Incidental Findings Committee white paper (J Am Talia Radiol 2018): Any incidental renal lesion less than 1 cm or classified as too small to characterize, or any incidental cystic renal lesion characterized as simple-appearing, is likely benign. No follow-up imaging is recommended for these lesions per consensus recommendations based on imaging criteria.
[2023-05-09] MEDS: orphenadrine 30 mg/mL Inj 2 mL 60 MG IVP (17:52)
[2023-05-09] MEDS: morphine 4 mg/mL SDV 1 mL IVP (17:54)
[2023-05-09 17:59] LABS: Basophils # 0.1 10^3/uL (0.0-0.1); Basophils % 0.9 %; Eosinophils # 0.2 10^3/uL (0.0-0.8); Eosinophils % 2.3 %; Hematocrit 37.2 % (36-47); Lymphocytes # 2.6 10^3/uL (0.8-4.8); Lymphocytes % 25.1 %; Mean Corpuscular HGB Conc 32.5 g/dL (30-55); Mean Corpuscular Hemoglobin 30.9 pg (27-33); Mean Corpuscular Volume 94.9 fl (85-98); Mean Platelet Volume 9.2 fL (7.4-10.4); Monocytes # 0.9 10^3/uL (0.2-0.9); Monocytes % 8.9 %; Neutrophils # 6.51 10^3/uL (1.8-7.7); Neutrophils % 62.2 %; Nucleated Red Blood Cells % 0 %; Platelet Count 237 10^3/cmm (157-399); Red Blood Count 3.92 10^6/uL (3.85-5.65); Red Cell Distribution Width 13.5 % (12.1-15.1); White Blood Count 10.45 10^3/uL (3.29-11.43)
[2023-05-09] MEDS: iohexol 350 mg/mL 500 mL Btl (per mL) IV (18:04)
[2023-05-09 18:20] LABS: Alanine Aminotransferase 32 U/L (0-33); Albumin Level 3.9 g/dL (3.5-5.2); Alkaline Phosphatase 83 U/L (35-105); Anion Gap 13.4 (5-19); Aspartate Amino Transferase 37 U/L (0-32); Blood Urea Nitrogen 29 mg/dL (8-23); Calcium 9.2 mg/dL (8.5-10.5); Carbon Dioxide 25 mmol/L (22-29); Chloride 105 mmol/L (98-107); Globulin 2.9 g/dL (1.3-4.6); Glomerular Filtration Rate 35.2 mL/min (90-130); Glucose 109 mg/dL (65-115); Lactic Sepsis W/Reflex 0.8 mmol/L (0.5-2.2); Lipase 38 U/L (13-60); Osmolality Calculated 294 mOsm/kg (285-295); Potassium 4.4 mmol/L (3.5-5.1); Sodium 139 mmol/L (136-145); Total Bilirubin 0.2 mg/dL (0.15-1.2); Total Protein 6.8 g/dL (6.6-8.7)
[2023-05-09] MEDS: sodium chloride 0.9% 500 ML IV (18:27)
[2023-05-09 19:47] LABS: Add Urine Microscopic? NO; Charge for UA Resulting for Rev
[2023-05-09 19:55] LABS: Bilirubin Urine Neg (Negative); Blood Urine Neg (Negative); Glucose Urine UA Norm (Normal); Ketones Urine Negative (Negative); Leukocyte Esterase Urine Negative (Negative); Nitrate Urine Negative (Negative); Protein Urine Neg (Negative); Specific Gravity, Urine 1.005 (1.005-1.030); Urine Appearance Clear (CLEAR); Urine Color Yellow (Yellow); Urobilinogen Urine Norm (Negative); pH Urine 5 (5-7)
[2023-05-09] MEDS: sodium chloride 0.9% 1,000 ML 999 ML IV (20:18)
--- NOTE | 2023-05-09 20:37 | W.ED.ABDPA2 ---
HPI - Abdominal Pain General: Chief Complaint: Abdominal Pain Stated Complaint: abd pain Time Seen by Provider: 05/09/23 17:17 History of Present Illness: Patient is a 62 yo female that presents to the ER with complaints of RLQ abd pain. Onset of symptoms - evloving for the last 5 days. Patient states pain is sharp with motion. During the interview patient is complaining of abd pain but grabbing her back. Pain radiates from posterior to anterior. She has pain in her groin and has increased pain in her back when she lifts her leg. Patient reports she has been dealing with constipation recently and has had similar abdominal pain as well. She has a colonoscopy scheduled for this Thursday Associated Symptoms: Reports constipation, diarrhea and heartburn; Denies chills, dysuria, fever(s), hematochezia, nausea and vomiting Review of Systems General: Reports: 10 or more systems reviewed and unremarkable except in HPI and below Const: Denies: fever(s), chills, change in weight or fatigue Eyes: Denies: change in vision ENMT: Denies: odynophagia Card: Denies: chest pain Resp: Denies: dyspnea GI: Reports: heartburn, diarrhea and constipation; Denies: abdominal pain, nausea, vomiting, dysphagia or hematochezia : Denies: dysuria Musc: Reports: back pain and muscle cramps Skin/Breast: Denies: rash, nipple discharge or breast mass Neuro: Denies: seizure-like activity Dennis/Lymph: Denies: easy bruising PFSH ED PFSH: Medical History (Updated 05/09/23 @ 20:52 by BRANDAN Velasquez) History of nonmelanoma skin cancer Multiple sites, insect bite, nonvenomous Psychiatric care History of rheumatic fever as a child CHF (NYHA class III, ACC/AHA stage C) LVEF 35% LBBB (left bundle branch block) Unstable angina Urinary incontinence, mixed Back pain, chronic Anxiety Depression Hypertension Hypercholesterolemia Hypothyroidism Osteoarthritis Surgical History (Updated 04/27/23 @ 10:49 by Roldan Agarwal DO) Hx of colonoscopy with polypectomy 2018 [place] H/O vaginal surgery Urethral sling History of 2 sections H/O Spinal surgery ALDF and ACDF. S/P lumpectomy, left breast S/P tonsillectomy S/P colonoscopy S/P excision of lipoma Right buttocks. H/O left wrist surgery Family History Mother Anemia Alzheimer disease Father Heart disease Hypertension Kidney disease COPD (chronic obstructive pulmonary disease) Social History Smoking and tobacco/nicotine status: current every day tobacco/nicotine user e-cigarettes E-Cigarette Details: e-cigarette and with nicotine Quit status (tobacco/nicotine): has quit using Year quit tobacco: 2021 Second hand smoke exposure: Yes Alcohol intake: current Alcohol intake frequency: few times a week Alcohol type: hard liquor Substance/Drug Use: never Physical Exam Const: COMMON NORMALS: no acute distress, patient oriented x3 and alert GENERAL APPEARANCE: cooperative ORIENTATION/CONSCIOUSNESS: Yes awake, Yes oriented to person, Yes oriented to place and Yes oriented to time HENMT: COMMON NORMALS: normocephalic and atraumatic HEAD & SCALP: normocephalic and atraumatic FACE & SINUS: normal facial exam MOUTH: Normal oral and palatal mucosa present THROAT: posterior oropharynx normal Eye: COMMON NORMALS: Equal, round and reactive pupils present, EOMs intact bilaterally, conjunctivae normal and no scleral icterus GENERAL EYE: appearance normal, both eyes and all related structures ALIGNMENT: Yes alignment normal PERIORBITAL: periorbital findings normal CONJUNCTIVA: Yes conjunctivae normal PUPIL: Yes Equal, round and reactive pupils present Neck/C-Spine: COMMON NORMALS: full ROM GENERAL: Yes normal visual inspection Lymph: LYMPHATIC: no lymphadenopathy noted Chest: COMMONS NORMALS: normal inspection of the chest Breast/axilla inspection: Yes no chest deformity, asymmetry, normal contours, no nodules, masses, tenderness Resp: COMMON NORMALS: normal respiratory effort, No retractions, No use of accessory muscles and clear to auscultation bilaterally EFFORT & INSPECTION: Yes able to speak in complete sentences and Yes symmetric chest movement AUSCULTATION: clear to auscultation bilaterally Cardio: COMMON NORMALS: regular rate, regular rhythm and Peripheral pulses 2+ throughout RATE: regular rate RHYTHM: regular rhythm PERIPHERAL PULSES: Peripheral pulses 2+ throughout GI: COMMON NORMALS: Normal to inspection, nondistended, normoactive bowel sounds present, Soft to palpation, non-tender and No hepatosplenomegaly present INSPECTION: Yes normal to inspection AUSCULTATION: Yes normoactive bowel sounds PALPATION: Yes Soft to palpation and Yes No hepatosplenomegaly present RECTAL EXAM: deferred Extremity: COMMON NORMALS: normal to inspection GENERAL: Yes normal exam except as noted Neuro: COMMON NORMALS: patient oriented x3 SENSORIUM/ORIENTATION: Yes alert, Yes oriented to person, Yes oriented to place and Yes oriented to time CRANIAL NERVES: Yes CN normal except as noted Psych: COMMON NORMALS: mental status grossly normal, Normal thought process present, cooperative, activity/motor behavior normal, denies homicidal ideation and denies suicidal ideation THOUGHT PROCESS: Normal thought process present Skin: COMMON NORMALS: no rashes or lesions noted, no wounds and turgor normal GENERAL SKIN EXAM: no rashes or lesions noted and turgor normal Course Vital Signs: Vital signs: Vital Signs Temperature 98.0 F 05/09/23 15:45 Pulse Rate 92 05/09/23 15:45 Respiratory Rate 16 05/09/23 15:45 Blood Pressure 108/70 05/09/23 15:45 Pulse Oximetry 97 05/09/23 15:45 Oxygen Delivery Me thod Room Air 05/09/23 15:45 MDM - Abdominal Pain Medical Decision Making Patient was evaluated in the emergency department today for back versus abdominal pain. Onset of symptoms 5 days ago and progressively worsening. While she initially states that she has pain in her abdomen she is nontender to palpation. She is however very painful in her back when she moves her right leg. She has good strength throughout her lower extremities, 5/5 and denies any radicular symptoms at this time. We did start an IV on the patient and gave her 500 cc bolus. I gave her morphine and Norflex and patient had good resolution of her symptoms. I did obtain laboratory studies and a CT abdomen pelvis. Laboratory studies were unremarkable with the exception of her creatinine and BUN. She has a history chronic kidney disease and sees nephrology. Patient was given another liter of fluid since she received a CT with contrast. The CT abdomen pelvis was unremarkable with the exception of a lesion noted on her left kidney which is less than 1 cm and is likely cystic. The CT also reveals colonic constipation Patient had a long discussion about diagnostics and possible causes of her pain. I did obtain a lactic acid that was normal and the lipase was normal Negative urinalysis Advising patient to follow-up with primary care this week. For her constipation and advised that she use mag citrate at home. Patient asked specifically for narcotic pain medication which I declined. She is follow-up with primary care and spine to further discuss her symptoms. Patient is agreeable Lab Data 05/09/23 17:47 05/09/23 17:47 Labs/Radiology: Radiology Impressions Abdomen/Pelvis CT 05/09/23 17:31 IMPRESSION: 1. Mild colonic stool burden, which can be seen in the clinical setting of constipation. 2. Study is otherwise negative for acute findings. COMMENTS: Consistent with the [place]'s Incidental Findings Committee white paper (J Am Talia Radiol 2018): Any incidental renal lesion less than 1 cm or classified as too small to characterize, or any incidental cystic renal lesion characterized as simple-appearing, is likely benign. No follow-up imaging is recommended for these lesions per consensus recommendations based on imaging criteria. Laboratory Results WBC 10.45 10^3/uL (3.29-11.43) 05/09/23 17:47 RBC 3.92 10^6/uL (3.85-5.65) 05/09/23 17:47 Hgb 12.10 g/dL (11.27-16.99) 05/09/23 17:47 Hct 37.2 % (36-47) 05/09/23 17:47 MCV 94.9 fl (85-98) 05/09/23 17:47 MCH 30.9 pg (27-33) 05/09/23 17:47 MCHC 32.5 g/dL (30-55) 05/09/23 17:47 RDW 13.5 % (12.1-15.1) 05/09/23 17:47 Plt Count 237 10^3/cmm (157-399) 05/09/23 17:47 MPV 9.2 fL (7.4-10.4) 05/09/23 17:47 Neut % (Auto) 62.2 % 05/09/23 17:47 Lymph % (Auto) 25.1 % 05/09/23 17:47 Nye % (Auto) 8.9 % 05/09/23 17:47 Eos % (Auto) 2.3 % 05/09/23 17:47 Baso % (Auto) 0.9 % 05/09/23 17:47 Neut # (Auto) 6.51 10^3/uL (1.8-7.7) 05/09/23 17:47 Lymph # (Auto) 2.6 10^3/uL (0.8-4.8) 05/09/23 17:47 Nye # (Auto) 0.9 10^3/uL (0.2-0.9) 05/09/23 17:47 Eos # (Auto) 0.2 10^3/uL (0.0-0.8) 05/09/23 17:47 Baso # (Auto) 0.1 10^3/uL (0.0-0.1) 05/09/23 17:47 Nucleated RBC % (auto) 0 % 05/09/23 17:47 Nucleated RBCs # 0.0 /100WBC 05/09/23 17:47 Sodium 139 mmol/L (136-145) 05/09/23 17:47 Potassium 4.4 mmol/L (3.5-5.1) 05/09/23 17:47 Chloride 105 mmol/L (98-107) 05/09/23 17:47 Carbon Dioxide 25 mmol/L (22-29) 05/09/23 17:47 Anion Gap 13.4 (5-19) 05/09/23 17:47 BUN 29 mg/dL (8-23) H 05/09/23 17:47 Creatinine 1.5 mg/dL (0.5-0.9) H 05/09/23 17:47 GFR Calculation 35.2 mL/min (90-130) L 05/09/23 17:47 Glucose 109 mg/dL (65-115) 05/09/23 17:47 Calculated Osmolality 294 mOsm/kg (285-295) 05/09/23 17:47 Lactic Acid 0.8 mmol/L (0.5-2.2) 05/09/23 17:47 Calcium 9.2 mg/dL (8.5-10.5) 05/09/23 17:47 Total Bilirubin 0.2 mg/dL (0.15-1.2) 05/09/23 17:47 AST 37 U/L (0-32) H 05/09/23 17:47 ALT 32 U/L (0-33) 05/09/23 17:47 Alkaline Phosphatase 83 U/L (35-105) 05/09/23 17:47 Total Protein 6.8 g/dL (6.6-8.7) 05/09/23 17:47 Albumin 3.9 g/dL (3.5-5.2) 05/09/23 17:47 Globulin 2.9 g/dL (1.3-4.6) 05/09/23 17:47 Lipase 38 U/L (13-60) 05/09/23 17:47 Urine Color Yellow (Yellow) 05/09/23 19:42 Urine Appearance Clear (CLEAR) 05/09/23 19:42 Urine pH 5 (5-7) 05/09/23 19:42 Ur Specific [place] 1.005 (1.005-1.030) 05/09/23 19:42 Urine Protein Neg (Negative) 05/09/23 19:42 Urine Glucose (UA) Norm (Normal) 05/09/23 19:42 Urine Ketones Negative (Negative) 05/09/23 19:42 Urine Blood Neg (Negative) 05/09/23 19:42 Urine Nitrate Negative (Negative) 05/09/23 19:42 Urine Bilirubin Neg (Negative) 05/09/23 19:42 Urine Urobilinogen Norm mg/dL (Negative) 05/09/23 19:42 Ur Leukocyte Esterase Negative (Negative) 05/09/23 19:42 All radiology interpretation(s) finalized by discharge Discharge Plan Discharge Patient Disposition: Home Clinical Impression: Back pain, Abdominal pain Condition: Stable Prescriptions: New methylprednisolone [Medrol (Parker)] 4 mg tablets,dose pack See Rx Instructions .ROUTE .COMPLEX Qty: 21 0RF Rx Instructions: for 6 days No Action nitroglycerin 0.4 mg tablet, sublingual 0.4 mg sublingual Q5M PRN (Reason: chest pain) Qty: 25 2RF Rx Instructions: do not exceed 3 doses per episode mupirocin 2 % ointment 1 applic topical BID Qty: 22 1RF Rx Instructions: to open areas on arms,legs until healed tramadol 50 mg tablet 50 mg PO BID PRN (Reason: pain) Qty: 45 0RF cyclobenzaprine 10 mg tablet 10 mg PO TID PRN (Reason: muscle spasm) Qty: 60 0RF Estroven Cmplt Menopause Rlf 4 mg tablet PO prednisone 20 mg tablet 40 mg PO DAILY Qty: 10 0RF Rx Instructions: Take in the AM with food pantoprazole [Protonix] 40 mg tablet,delayed release (DR/EC) 40 mg PO BID 42 Days Qty: 84 1RF (DME) turmeric/curcumin capsule 0 .Route .MEDSUPPLY fluticasone propionate [Flonase Allergy Relief] 50 mcg/actuation spray,suspension 2 spray intranasal DAILY PRN (Reason: Allergy Symptoms) Rx Instructions: administer into each nostril hydroxyzine HCl 50 mg tablet 50 mg PO QID PRN (Reason: anxiety) Qty: 120 2RF bupropion HCl 300 mg tablet extended release 24 hr See Rx Instructions .ROUTE .COMPLEX Qty: 90 0RF Dose Instruction: TAKE 1 TABLET EVERY MORNING Rx Instructions: TAKE 1 TABLET EVERY MORNING sertraline 100 mg tablet See Rx Instructions .ROUTE .COMPLEX Qty: 180 0RF Dose Instruction: TAKE 2 TABLETS EVERY DAY Rx Instructions: TAKE 2 TABLETS EVERY DAY risperidone 0.5 mg tablet 0.5 mg PO BID Qty: 60 2RF methylprednisolone acetate [Depo-Medrol] 40 mg/mL suspension 40 mg intra-articular ONCE Qty: 1 0RF lidocaine (PF) 10 mg/mL (1 %) solution 10 mg intra-articular ONCE Qty: 4 0RF ropivacaine (PF) 5 mg/mL (0.5 %) solution 2 ml intra-articular ONCE Qty: 4 0RF metoprolol succinate 25 mg tablet extended release 24 hr 12.5 mg PO DAILY Qty: 45 3RF spironolactone 25 mg tablet 12.5 mg PO DAILY PRN (Reason: weight gain) Qty: 45 1RF isosorbide mononitrate 10 mg tablet 5 mg PO BID Qty: 90 3RF Rx Instructions: take doses 7 hrs apart hydrocodone-acetaminophen 5-325 mg tablet 1 tab PO .Q4-6H 5 Days Qty: 30 0RF gabapentin 300 mg capsule 300 mg PO TID Qty: 240 0RF Rx Instructions: TAKE 1 CAPSULE BY MOUTH THREE TIMES DAILY NEEDED FOR PAIN (730AM , 2PM, 10PM) Spiriva Respimat 1.25 mcg/actuation mist 2 puff inhalation DAILY Qty: 4 6RF budesonide-formoterol [Symbicort] 80-4.5 mcg/actuation HFA aerosol inhaler 2 puff inhalation BID Qty: 10.2 6RF atorvastatin 80 mg tablet See Rx Instructions .ROUTE .COMPLEX Qty: 90 3RF Dose Instruction: TAKE 1 TABLET EVERY DAY Rx Instructions: TAKE 1 TABLET EVERY DAY levothyroxine 75 mcg tablet See Rx Instructions .ROUTE .COMPLEX Qty: 90 1RF Dose Instruction: TAKE 1 TABLET EVERY DAY Rx Instructions: TAKE 1 TABLET EVERY DAY calcium carbonate-vitamin D3 600 mg(1,500mg) -200 unit Tablet 1 tab PO DAILY@0730 aspirin 81 mg Tablet,Delayed Release (Dr/Ec) 81 mg PO DAILY@0730 vitamin B complex Tablet 1 tab PO DAILY@0730 One-A-Day Women's 50 Plus 1 tab PO DAILY@0730 hydrocodone-acetaminophen 5-325 mg tablet 1 - 2 tab PO .Q4-6H Qty: 40 0RF Discharge Orders: Discharge ED (Routine); Ordered 05/09/23 Ordered By: Zeeshan Mauricio Referrals: Mariaa Smith DO [Primary Care Provider] - Discharge Diet: Advance as tolerated Discharge Activity: Resume usual activity Patient Instructions: Low Back Strain (ED), Abdominal Pain (ED), Lower Back Exercises (ED), Opioid Safety, Pain Management Activity Restrictions/Additional Instructions: Please follow-up with your primary care doctor regarding your ongoing abdominal complaints Please use mag citrate to assist with bowel movements this weekend. I want you to also follow-up with Dr. Martin about your ongoing back pain. 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
[2023-05-09 21:34] VITALS: BP 108/70; PULSE 92; RESP 16; TEMP 36.7; O2SAT 97
== END 2023-05-09 21:34 | disposition home or self-care (01) ==
PROVIDERS: Emergency Provider Nurse Practitioner; PCP Family Medicine
DX: R10.31 Right lower quadrant pain (principal); I11.0 Hypertensive heart disease with heart failure; I50.9 Heart failure, unspecified; F17.290 Nicotine dependence, other tobacco product, uncomplicated
CPT/HCPCS: 74177; 80053; 81003; 83605; 83690; 85025; 96361; 96374; 96375; 99285; J2270; J2360; J7030; J7040; Q9967

== ENCOUNTER 2023-05-13 10:26 | Day surgery (SDC) | payer MEDICARE, MEDICAID, SELFPAY ==
--- NOTE | 2023-05-13 10:27 | ANES.PREANE2 ---
Pre-Anesthetic Assessment Height/Weight: Height 1.73 m Preop Diagnosis: screening colonoscopy and gerd Operation Date: 05/13/23 11:30 Proposed Procedures p 44230 egd [id number] colonoscopy G0105 screen colon h risk Z86.010,K21.9 ,R19.8(Not Applicable) - DO napoleon Blanchard Colonoscopy(Not Applicable) - Roldan Agarwal DO Familial anesthetic complications: none Was Beta Christian taken within 24 hours: Yes Was Clonidine taken within 24 hours: N/A Social Alcohol and Tobacco vaping several times a week pack(s) per day 1 ppd x 30 pack years Exam alert, oriented x 3, clear to auscultation bilaterally and regular rate & rhythm Airway Submandibular: within normal limits Cervical ROM: within normal limits Mallampati: Class II Dentition: chipped Comments: Comments: front tooth chipped History/ROS No significant history except as noted Pulmonary Chronic Obstructive Pulmonary Disease, Exertional Dyspnea and Sleep Apnea uses cpap daily and with naps CV/HEM Unstable Angina, Arrythmia and Congestive Heart Failure LVEF 35% Left BBB Chronic Renal Insufficiency Hepatic None reported GI Gastroesophageal Reflux Disease Metabolic Thyroid Disease hypothyroid Musc/skel Lower Back Pain and Osteoarthritis/DJD recent laminectomy Neuropsych Anxiety and Depression Anesthetic Plan ASA status: 3 Anesthesia: Anesthesia Evaluation and MAC Risk of > 500 ml blood loss (7ml/kg in children): No Medications/Allergies Home Medications Medication Instructions Recorded Confirmed Last Taken Type One-A-Day Women's 50 Plus 1 tab PO DAILY@72905/04/20 05/11/23 05/11/23 History aspirin 81 mg tablet,delayed 81 mg PO DAILY@72905/04/20 05/11/23 05/11/23 History release calcium carbonate 600 mg-vitamin 1 tab PO DAILY@72905/04/20 05/11/23 05/11/23 History D3 5 mcg (200 unit) tablet vitamin B complex 1 tab PO DAILY@72905/04/20 05/11/23 05/11/23 History nitroglycerin 0.4 mg sublingual 0.4 mg sublingual Q5M PRN chest 10/01/20 05/11/23 06/16/22 Rx tablet pain #25 tabs turmeric/curcumin 07/26/21 05/11/23 05/11/23 History mupirocin 2 % topical ointment 1 applic topical BID #22 grams 11/25/21 05/11/23 05/11/23 Rx tramadol 50 mg tablet 50 mg PO BID PRN pain #45 tabs 04/02/22 05/11/23 05/11/23 Rx fluticasone propionate 50 2 spray intranasal DAILY PRN 09/29/22 05/11/23 05/11/23 History mcg/actuation nasal Allergy Symptoms spray,suspension (Flonase Allergy Relief) isosorbide mononitrate 10 mg tablet 5 mg (1/2 x 10 mg) PO BID #90 tabs 10/22/22 05/11/23 05/13/23 Rx metoprolol succinate 25 mg 12.5 mg (1/2 x 25 mg) PO DAILY #45 10/22/22 05/11/23 05/13/23 Rx tablet,extended release 24 hr tabs spironolactone 25 mg tablet 12.5 mg (1/2 x 25 mg) PO DAILY PRN 10/22/22 05/11/23 05/11/23 Rx weight gain #45 tabs gabapentin 300 mg capsule 300 mg PO TID #240 caps 03/05/23 05/11/23 05/11/23 Rx budesonide-formoterol HFA 80 2 puff inhalation BID #10.2 grams 03/24/23 05/11/23 05/11/23 Rx mcg-4.5 mcg/actuation aerosol inhaler (Symbicort) hydroxyzine HCl 50 mg tablet 50 mg PO QID PRN anxiety #120 tabs 04/02/23 05/11/23 05/11/23 Rx risperidone 0.5 mg tablet 0.5 mg PO BID #60 tabs 04/02/23 05/11/23 05/11/23 Rx cyclobenzaprine 10 mg tablet 10 mg PO TID PRN muscle spasm #60 04/23/23 05/11/23 05/11/23 Rx tabs pantoprazole 40 mg tablet,delayed 40 mg PO BID 6 weeks #84 tabs 04/27/23 05/11/23 05/11/23 Rx release (Protonix) methylprednisolone 4 mg tablets in See Rx Instructions PO .COMPLEX 05/09/23 05/11/23 05/11/23 Rx a dose pack (Medrol (Parker)) #21 ea atorvastatin 80 mg tablet 80 mg PO DAILY 05/11/23 05/11/23 05/11/23 History bupropion HCl 300 mg 24 hr tablet, 300 mg PO DAILY 05/11/23 05/11/23 05/11/23 History extended release cinnamon bark 500 mg capsule 500 mg PO DAILY 05/11/23 05/11/23 05/11/23 History (Cinnamon) levothyroxine 75 mcg tablet 75 mcg PO DAILY 05/11/23 05/11/23 05/13/23 History sertraline 100 mg tablet 100 mg PO DAILY 05/11/23 05/11/23 05/11/23 History tiotropium bromide 1.25 2 puff inhalation DAILY PRN COPD 05/11/23 05/11/23 05/11/23 History mcg/actuation mist for inhalation (Spiriva Respimat) Allergies Allergy/AdvReac Type Severity Reaction Status Date / Time No Known Allergies Allergy Verified 05/13/23 10:40 [facility] Anesthesia Medical History (Updated 05/09/23 @ 20:52 by Zeeshan Mauricio [facility]) History of nonmelanoma skin cancer Multiple sites, insect bite, nonvenomous Psychiatric care History of rheumatic fever as a child CHF (NYHA class III, ACC/AHA stage C) LVEF 35% LBBB (left bundle branch block) Unstable angina Urinary incontinence, mixed Back pain, chronic Anxiety Depression Hypertension Hypercholesterolemia Hypothyroidism Osteoarthritis Surgical History (Updated 04/27/23 @ 10:49 by Roldan Agarwal DO) Hx of colonoscopy with polypectomy 2018 [place] H/O vaginal surgery Urethral sling History of 2 sections H/O Spinal surgery ALDF and ACDF. S/P lumpectomy, left breast S/P tonsillectomy S/P colonoscopy S/P excision of lipoma Right buttocks. H/O left wrist surgery Family History Mother Anemia Alzheimer disease Father Heart disease Hypertension Kidney disease COPD (chronic obstructive pulmonary disease) Social History Smoking and tobacco/nicotine status: current every day tobacco/nicotine user e-cigarettes E-Cigarette Details: e-cigarette and with nicotine Quit status (tobacco/nicotine): has quit using Year quit tobacco: 2021 Second hand smoke exposure: Yes Alcohol intake: current Alcohol intake frequency: few times a week Alcohol type: hard liquor Substance/Drug Use: never Data Anesthesia Cardiac Studies: Echocardiogram 10/10/22 Echocardiogram Limited Views 08/03/20 Echocardiogram Ultrasound 05/04/20 Sestamibi Stress Test (Cardiology) 05/04/20
[2023-05-13 10:47] VITALS: BP 125/75; PULSE 68; RESP 18; TEMP 36.3; O2SAT 97
[2023-05-13] MEDS: sodium chloride 0.9% 1,000 ML 30 ML IV (10:57)
--- NOTE | 2023-05-13 11:26 | W.PM.OPSUD ---
Surgery/Procedure H&P Update DATE OF PROCEDURE: May 13, 2023 DATE H&P PERFORMED: 04/27/23 H&P UPDATE INFORMATION: I have reviewed H&P completed within last 30 days, I have examined patient prior to procedure and No changes to prior documentation PREOP DIAGNOSIS: screening colonoscopy and gerd PLANNED PROCEDURE: Operation Date: 05/13/23 11:30 Proposed Procedures p [id number] egd [id number] colonoscopy G0105 screen colon h risk Z86.010,K21.9 ,R19.8(Not Applicable) - Roldan Agarwal DO s Colonoscopy(Not Applicable) - Roldan Agarwal DO
[2023-05-13 12:13] VITALS: BP 117/68; PULSE 67; RESP 18; TEMP 36.3; O2SAT 98
[2023-05-13 12:24] VITALS: BP 121/78; PULSE 69; RESP 18; O2SAT 99
--- NOTE | 2023-05-13 15:26 | ANE.PACU2 ---
Inpatient post-anesthesia follow up: Airway intact: Yes Vital signs: Temperature 97.4 F Pulse Rate 69 Respiratory Rate 18 Blood Pressure 121/78 Pulse Oximetry 99 Oxygen Delivery Me thod Room Air Oxygen Flow Rate Fraction of Inspir ed Oxygen Hydration adequate: Yes Nausea and vomiting: No Pain level: 2 Mental status: Baseline
== END 2023-05-13 12:42 | disposition home or self-care (01) ==
PROVIDERS: PCP Family Medicine; Visit Provider Surgery
PROC: 0DJ08ZZ Inspection of Upper Intestinal Tract, Via Natural or Artificial Opening Endoscopic (ICD-10-PCS; CPT 43235; principal; 2023-05-13 11:30)
PROC: 0DJD8ZZ Inspection of Lower Intestinal Tract, Via Natural or Artificial Opening Endoscopic (ICD-10-PCS; CPT 45378; 2023-05-13 11:30)
DX: Z12.11 Encounter for screening for malignant neoplasm of colon (principal); K21.9 Gastro-esophageal reflux disease without esophagitis; Z86.010 Personal history of colon polyps; K29.50 Unspecified chronic gastritis without bleeding; D12.3 Benign neoplasm of transverse colon; D12.5 Benign neoplasm of sigmoid colon; F17.200 Nicotine dependence, unspecified, uncomplicated; J44.9 Chronic obstructive pulmonary disease, unspecified; G47.30 Sleep apnea, unspecified; I50.9 Heart failure, unspecified; E03.9 Hypothyroidism, unspecified; I11.0 Hypertensive heart disease with heart failure; Z79.82 Long term (current) use of aspirin; M19.90 Unspecified osteoarthritis, unspecified site
CPT/HCPCS: 43239; 45385; 88305; 88342; J2704; J7030

== ENCOUNTER 2023-06-05 11:18 | Outpatient (CLI) | payer MEDICARE, MEDICAID, SELFPAY ==
[2023-06-05 11:58] LABS: Partial Thromboplastin Time 27.1 SECONDS (23.9-36.7)
[2023-06-06 16:54] LABS: T3 Total 88 ng/dL (76-181)
== END 2023-06-05 11:19 | disposition home or self-care (01) ==
LOC: LAB 11:19
PROVIDERS: PCP Family Medicine; Visit Provider Family Medicine
DX: E03.9 Hypothyroidism, unspecified (principal); T14.8XXA Other injury of unspecified body region, initial encounter; X58.XXXA Exposure to other specified factors, initial encounter
CPT/HCPCS: 84439; 84480; 85730

== ENCOUNTER → 2023-06-15 12:07 | Outpatient (BNVA) | payer MEDICARE, MEDICAID, SELFPAY | PROVIDERS: PCP Family Medicine; Visit Provider Anesthesiology Pain Medicine | DX: G89.29 Other chronic pain; M48.062 Spinal stenosis, lumbar region with neurogenic claudication; M51.16 Intervertebral disc disorders with radiculopathy, lumbar region; M47.812 Spondylosis without myelopathy or radiculopathy, cervical region; M19.011 Primary osteoarthritis, right shoulder; M25.562 Pain in left knee; M25.512 Pain in left shoulder; M25.552 Pain in left hip | CPT/HCPCS: 73030; 99214 ==

== ENCOUNTER → 2023-06-25 13:57 | Outpatient (BNVA) | payer MEDICARE, MEDICAID, SELFPAY | PROVIDERS: PCP Family Medicine; Visit Provider Anesthesiology Pain Medicine | DX: M48.062 Spinal stenosis, lumbar region with neurogenic claudication; G89.29 Other chronic pain; M25.562 Pain in left knee; M25.512 Pain in left shoulder; M47.812 Spondylosis without myelopathy or radiculopathy, cervical region; M51.16 Intervertebral disc disorders with radiculopathy, lumbar region; M70.62 Trochanteric bursitis, left hip; M16.0 Bilateral primary osteoarthritis of hip; M19.011 Primary osteoarthritis, right shoulder; Y93.9 Activity, unspecified | CPT/HCPCS: 20610; 99214; J1010; J3490 ==

== ENCOUNTER → 2023-07-02 13:21 | Outpatient (BNVA) | payer MEDICARE, MEDICAID, SELFPAY | PROVIDERS: PCP Family Medicine; Visit Provider Nurse Practitioner Family | DX: C44.629 Squamous cell carcinoma of skin of left upper limb, including shoulder (principal); C44.519 Basal cell carcinoma of skin of other part of trunk; L57.0 Actinic keratosis; L82.0 Inflamed seborrheic keratosis; L98.1 Factitial dermatitis; L57.8 Other skin changes due to chronic exposure to nonionizing radiation; L81.4 Other melanin hyperpigmentation; Z85.828 Personal history of other malignant neoplasm of skin | CPT/HCPCS: 11102; 17000; 99213 ==

== ENCOUNTER → 2023-07-09 13:22 | Outpatient (BNVA) | payer MEDICARE, MEDICAID, SELFPAY | PROVIDERS: PCP Family Medicine; Visit Provider Anesthesiology Pain Medicine | DX: G89.29 Other chronic pain; M48.062 Spinal stenosis, lumbar region with neurogenic claudication; M54.2 Cervicalgia; M25.562 Pain in left knee; M25.512 Pain in left shoulder; M47.812 Spondylosis without myelopathy or radiculopathy, cervical region; M51.16 Intervertebral disc disorders with radiculopathy, lumbar region; M19.011 Primary osteoarthritis, right shoulder; M16.0 Bilateral primary osteoarthritis of hip | CPT/HCPCS: 20610; 99214; J1010; J3490 ==

== ENCOUNTER → 2023-07-23 13:28 | Outpatient (BNVA) | payer MEDICARE, SELFPAY | PROVIDERS: PCP Family Medicine; Visit Provider Dermatology | DX: C44.629 Squamous cell carcinoma of skin of left upper limb, including shoulder (principal); C44.519 Basal cell carcinoma of skin of other part of trunk; L57.0 Actinic keratosis | CPT/HCPCS: 11602; 11603; 12034; 13101; 17000 ==

== ENCOUNTER → 2023-07-27 09:11 | Outpatient (BNVA) | payer MEDICARE, SELFPAY | PROVIDERS: PCP Family Medicine; Visit Provider Dermatology | DX: T81.31XA Disruption of external operation (surgical) wound, not elsewhere classified, initial encounter (principal); X58.XXXA Exposure to other specified factors, initial encounter | CPT/HCPCS: 99212 ==

== ENCOUNTER → 2023-08-20 09:48 | Outpatient (BNVA) | payer MEDICARE, MEDICAID, SELFPAY | PROVIDERS: PCP Family Medicine; Visit Provider Anesthesiology Pain Medicine | DX: G89.29 Other chronic pain; M48.062 Spinal stenosis, lumbar region with neurogenic claudication; M25.562 Pain in left knee; M25.512 Pain in left shoulder; M47.812 Spondylosis without myelopathy or radiculopathy, cervical region; M19.019 Primary osteoarthritis, unspecified shoulder; M51.16 Intervertebral disc disorders with radiculopathy, lumbar region; M16.0 Bilateral primary osteoarthritis of hip; M19.011 Primary osteoarthritis, right shoulder | CPT/HCPCS: 99214 ==

== ENCOUNTER → 2023-09-21 10:59 | Outpatient (BNVA) | payer MEDICARE, MEDICAID, SELFPAY | PROVIDERS: PCP Family Medicine; Visit Provider Nurse Practitioner | DX: M25.562 Pain in left knee (principal); M25.462 Effusion, left knee; M25.362 Other instability, left knee | CPT/HCPCS: 73560; 73565; 99214 ==

== ENCOUNTER 2023-10-09 12:44 | Outpatient (CLI) | payer MEDICARE, MEDICAID, SELFPAY ==
--- NOTE | 2023-10-09 13:00 | MR_ITS ---
WS: [id number] MRI LEFT KNEE NONCONTRAST TECHNIQUE: Axial PD, coronal PD fat sat, coronal PD, sagittal PD, and sagittal PD fat-sat images obta joannad. CLINICAL INFORMATION: left knee pain COMPARISON: MRI 2021 FINDINGS: Moderate tricompartment arthritis. Distal quadriceps and patella tendons are intact. Hypertrophic pat verónica. Normal ACL and PCL. Chronic thinning of the medial and lateral meniscus. No acute appearing men iscal tears. Diffuse subchondral edema involving the lateral femoral condyle involving the articular surface with associated slightly depressed subchondral fracture. Diffuse edema involving the lateral knee soft tissues. Fluid and edema involving the superficial and deep fibers along the LCL and popliteus compatible with ligamentous injury. Increased signal involvin g the popliteus with partial high-grade tear.. Distal lateral collateral ligament appears intact. Rec ommend correlation for posterolateral corner injury. Fibular head appears normal. Normal medial collateral ligament. Tiny popliteal cyst. Moderate chondro malacia worse involving the medial patella facet. Small suprapatellar effusion. Additional edema comp atible with contusion involving the anterior lateral femoral condyle. No evidence of patella dislocat ion. Recommend correlation for patellar instability. MR/MR knee LT wo con* [id number] IMPRESSION: 1. ACL and PCL appear intact. 2. Ligamentous injury involving the lateral collateral ligament and popliteus. Partial high-grade tear involving the popliteus. Recommend correlation for pos terolateral corner injury. Diffuse soft tissue edema about the lateral knee. 3. Diffuse bone marrow edema with a small subchondral slightly depressed fract ure involving the articular surface of the lateral femoral condyle. 4. Additional edema in the far anterior lateral femoral condyle can be seen wi th patellar dislocation. Medial patellar retinaculum appears intact. Patella is normally located. Recommend correlation for patellar instability. 5. Moderate chondromalacia patella involving the medial patellar facet. Outbridge grading: grade III: partial-thickness cartilage loss with focal ulcer ation
== END 2023-10-09 12:45 | disposition home or self-care (01) ==
PROVIDERS: PCP Family Medicine; Visit Provider Nurse Practitioner
DX: S83.422A Sprain of lateral collateral ligament of left knee, initial encounter (principal); S86.812A Strain of other muscle(s) and tendon(s) at lower leg level, left leg, initial encounter; S72.431A Displaced fracture of medial condyle of right femur, initial encounter for closed fracture; M22.42 Chondromalacia patellae, left knee
CPT/HCPCS: 73721

== ENCOUNTER 2023-10-12 06:00 | Outpatient (CLI) | payer MEDICARE, MEDICAID, SELFPAY | END 2023-10-12 23:59 | disposition home or self-care (01) | LOC: SPT 10-13 10:24 | PROVIDERS: Visit Provider Nurse Practitioner | DX: Z46.89 Encounter for fitting and adjustment of other specified devices (principal); M25.362 Other instability, left knee | CPT/HCPCS: L1832 ==

== ENCOUNTER 2023-10-12 12:06 | Outpatient (CLI) | payer MEDICARE, MEDICAID, SELFPAY ==
[2023-10-12 12:45] LABS: Basophils # 0.1 10^3/uL (0.0-0.1); Basophils % 1.1 %; Eosinophils # 0.2 10^3/uL (0.0-0.8); Eosinophils % 2.5 %; Lymphocytes # 2.6 10^3/uL (0.8-4.8); Lymphocytes % 27.5 %; Mean Corpuscular HGB Conc 32.1 g/dL (30-55); Mean Corpuscular Hemoglobin 30.3 pg (27-33); Mean Corpuscular Volume 94.4 fl (85-98); Mean Platelet Volume 9.1 fL (7.4-10.4); Monocytes # 0.8 10^3/uL (0.2-0.9); Monocytes % 8.4 %; Neutrophils # 5.72 10^3/uL (1.8-7.7); Neutrophils % 60.2 %; Nucleated Red Blood Cells % 0 %; Platelet Count 279 10^3/cmm (157-399); Red Blood Count 4.45 10^6/uL (3.85-5.65); Red Cell Distribution Width 14.6 % (12.1-15.1); White Blood Count 9.51 10^3/uL (3.29-11.43)
[2023-10-12 13:13] LABS: Calcium 9.6 mg/dL (8.5-10.5); Parathyroid Hormone 83.8 pg/mL (15-65)
[2023-10-12 13:16] LABS: UPRO/UCREAT Ratio 0.09 mg/mg CR; Urine Creatinine 67 mg/dL (28-217); Urine Protein Random 6 mg/dL
[2023-10-12 13:21] LABS: 25 Hydroxy Vitamin D 50 ng/mL (30-100); Albumin Level 4.4 g/dL (3.5-5.2); Anion Gap 15.4 (5-19); Blood Urea Nitrogen 15 mg/dL (8-23); Calcium 9.6 mg/dL (8.5-10.5); Carbon Dioxide 26 mmol/L (22-29); Chloride 102 mmol/L (98-107); Glomerular Filtration Rate 45.4 mL/min (90-130); Glucose 110 mg/dL (65-115); Phosphorus 3.7 mg/dL (2.5-4.5); Potassium 4.4 mmol/L (3.5-5.1); Sodium 139 mmol/L (136-145)
== END 2023-10-12 12:07 | disposition home or self-care (01) ==
PROVIDERS: PCP Family Medicine; Visit Provider Nurse Practitioner
DX: N18.32 Chronic kidney disease, stage 3b (principal); S72.425A Nondisplaced fracture of lateral condyle of left femur, initial encounter for closed fracture; M22.42 Chondromalacia patellae, left knee; M25.552 Pain in left hip; G89.29 Other chronic pain; X58.XXXA Exposure to other specified factors, initial encounter
CPT/HCPCS: 36415; 80069; 82306; 82310; 82570; 83970; 84156; 85025; 99214

== ENCOUNTER → 2023-11-02 10:43 | Outpatient (BNVA) | payer MEDICARE, SELFPAY | PROVIDERS: Visit Provider Nurse Practitioner | DX: M22.42 Chondromalacia patellae, left knee; M25.562 Pain in left knee; M25.552 Pain in left hip; G89.29 Other chronic pain; S72.425D Nondisplaced fracture of lateral condyle of left femur, subsequent encounter for closed fracture with routine healing; X58.XXXD Exposure to other specified factors, subsequent encounter | CPT/HCPCS: 99024 ==

== ENCOUNTER 2023-11-17 14:23 | Outpatient (CLI) | payer MEDICARE, SELFPAY ==
--- NOTE | 2023-11-17 14:30 | MR_ITS ---
WS: [id number] EXAMINATION: MR hip LT wo con* [id number] ORDER DATE: 11/17/2023 2:32 PM COMPARISON: None. HISTORY: left hip pain TECHNIQUE: Coronal STIR of the Pelvis. Coronal proton density, coronal T1, axial T2 fat sat, axial T1 , sagittal T2 fat sat, and sagittal T1 performed of the hip. FINDINGS: Moderate degenerative narrowing LEFT hip. Hypertrophic changes along the acetabulum.Mild edema within the inferomedial femoral head likely degenerative with a small amount of subchondral cystic change i n this area. Tiny joint effusion. No acute fractures. Normal visualized pubic rami. Normal bone marro w signal in the femoral neck. Proximal femur is normal in appearance. Normal greater trochanter. Normal visualized sigmoid colon. Moderate degenerative narrowing RIGHT hip. No inguinal lymphadenopat hy. Normal bone marrow signal in the sacrum. Mild degenerative arthritis sacroiliac joints. Pedicle s crew fixation L5 and S1. MR/MR hip LT wo con* [id number] IMPRESSION: 1. Moderate degenerative narrowing LEFT hip. Small amount of subchondral cysti c change with degenerative edema in the medial inferior femoral head. 2. No evidence of avascular necrosis. No acute fractures. 3. Small amount of fluid and edema along the LEFT greater than RIGHT greater t rochanters can be seen with trochanteric bursitis in the appropriate clinical s etting. 4. Otherwise normal bone marrow signal in the bony pelvis and sacrum. No insuf ficiency fractures. 5. Small low signal lesion in the uterus measuring 10 mm may resent a uterine fibroid but indeterminate. This could be followed up with ultrasound.
== END 2023-11-17 14:24 | disposition home or self-care (01) ==
LOC: RAD 14:25
PROVIDERS: Visit Provider Nurse Practitioner
DX: M16.12 Unilateral primary osteoarthritis, left hip (principal); N85.9 Noninflammatory disorder of uterus, unspecified
CPT/HCPCS: 73721

== ENCOUNTER → 2023-11-23 11:28 | Outpatient (BNVA) | payer MEDICARE, SELFPAY | PROVIDERS: Visit Provider Nurse Practitioner | DX: M22.42 Chondromalacia patellae, left knee (principal) | CPT/HCPCS: 73560; 73565 ==

== ENCOUNTER 2023-11-25 06:00 | Outpatient (CLI) | payer MEDICARE, SELFPAY | END 2023-11-25 06:01 | disposition home or self-care (01) | LOC: SLEEP 12-18 13:39 | DX: N18.32 Chronic kidney disease, stage 3b (principal); E03.9 Hypothyroidism, unspecified; E78.00 Pure hypercholesterolemia, unspecified | CPT/HCPCS: 80053; 80061; 84439; 84443 ==

== ENCOUNTER 2023-11-27 14:46 | Outpatient (CLI) | payer MEDICARE, SELFPAY ==
--- NOTE | 2023-11-27 15:00 | USCV_ITS ---
Ryan Sanchez Age: 63 Gender: F : 1960 Exam Date: 11/27/2023 14:55 Ordering Phys: Whitney Cowan Technologist: CT Exam Location: [facility] Indication: PROCEDURES: Venous duplex imaging was performed in only the left lower extremity. On the left side, the common femoral, superficial femoral, profunda femoral, popliteal, posterior tibial, greater saphenous veins, and the peroneal trunk were identified and interrogated in the standard fashion. These veins were found to be easily compressible with spontaneous blood flow. No evidence of insufficiency or thrombus noted. FINDINGS: No dvt CONCLUSIONS No evidence of left lower extremity DVT. Franklin Abarca MD (Electronically Signed) Final Date: 27 November 2023 15:58 S
== END 2023-11-27 14:47 | disposition home or self-care (01) ==
LOC: RAD 14:47
PROVIDERS: Visit Provider Nurse Practitioner
DX: S72.425A Nondisplaced fracture of lateral condyle of left femur, initial encounter for closed fracture (principal); M22.42 Chondromalacia patellae, left knee; X58.XXXA Exposure to other specified factors, initial encounter
CPT/HCPCS: 93971

== ENCOUNTER → 2023-11-30 09:50 | Outpatient (BNVA) | payer MEDICARE, SELFPAY | PROVIDERS: Visit Provider Internal Medicine Cardiovascular Disease | DX: R07.9 Chest pain, unspecified (principal); I11.0 Hypertensive heart disease with heart failure; I50.9 Heart failure, unspecified; E78.00 Pure hypercholesterolemia, unspecified; I44.7 Left bundle-branch block, unspecified; F17.219 Nicotine dependence, cigarettes, with unspecified nicotine-induced disorders | CPT/HCPCS: 99214 ==

== ENCOUNTER → 2023-12-08 11:24 | Outpatient (BNVA) | payer MEDICARE, SELFPAY | PROVIDERS: Visit Provider Nurse Practitioner Family | DX: L57.0 Actinic keratosis (principal); D48.5 Neoplasm of uncertain behavior of skin; Z85.828 Personal history of other malignant neoplasm of skin; S00.401A Unspecified superficial injury of right ear, initial encounter; X58.XXXA Exposure to other specified factors, initial encounter; F42.4 Excoriation (skin-picking) disorder | CPT/HCPCS: 11102; 17004; 99213 ==

== ENCOUNTER → 2023-12-16 14:13 | Outpatient (BNVA) | payer MEDICARE, SELFPAY | PROVIDERS: Visit Provider Nurse Practitioner | DX: S72.425D Nondisplaced fracture of lateral condyle of left femur, subsequent encounter for closed fracture with routine healing (principal); X58.XXXD Exposure to other specified factors, subsequent encounter; M17.12 Unilateral primary osteoarthritis, left knee; M79.672 Pain in left foot | CPT/HCPCS: 73560; 73565; 99213 ==

== ENCOUNTER → 2024-01-05 09:32 | Outpatient (BNVA) | payer MEDICARE, SELFPAY | PROVIDERS: Visit Provider Dermatology | DX: C44.41 Basal cell carcinoma of skin of scalp and neck (principal); D48.5 Neoplasm of uncertain behavior of skin; L57.0 Actinic keratosis | CPT/HCPCS: 11102; 17311; 99214 ==

== ENCOUNTER → 2024-01-11 15:01 | Outpatient (BNVA) | payer MEDICARE, SELFPAY | PROVIDERS: Visit Provider Podiatrist Foot & Ankle Surgery | DX: M79.672 Pain in left foot (principal); G57.62 Lesion of plantar nerve, left lower limb | CPT/HCPCS: 73630; 99203 ==

== ENCOUNTER → 2024-01-25 08:44 | Outpatient (BNVA) | payer MEDICARE, SELFPAY | PROVIDERS: Visit Provider Dermatology | DX: C44.41 Basal cell carcinoma of skin of scalp and neck (principal); L57.0 Actinic keratosis | CPT/HCPCS: 17311; 99214 ==

== ENCOUNTER → 2024-01-27 15:23 | Outpatient (BNVA) | payer MEDICARE, SELFPAY | PROVIDERS: Visit Provider Nurse Practitioner | DX: M16.12 Unilateral primary osteoarthritis, left hip (principal); M70.62 Trochanteric bursitis, left hip | CPT/HCPCS: 73502; 99214 ==

== ENCOUNTER 2024-02-12 13:01 | Outpatient (CLI) | payer MEDICARE, SELFPAY ==
[2024-02-12 13:43] LABS: Basophils # 0.1 10^3/uL (0.0-0.1); Basophils % 1.2 %; Eosinophils # 0.3 10^3/uL (0.0-0.8); Eosinophils % 3.2 %; Hematocrit 36.3 % (36-47); Lymphocytes # 2.6 10^3/uL (0.8-4.8); Lymphocytes % 30.9 %; Mean Corpuscular HGB Conc 30.6 g/dL (30-55); Mean Corpuscular Hemoglobin 27.8 pg (27-33); Mean Platelet Volume 9.5 fL (7.4-10.4); Monocytes # 0.8 10^3/uL (0.2-0.9); Monocytes % 8.9 %; Neutrophils # 4.69 10^3/uL (1.8-7.7); Neutrophils % 55.4 %; Nucleated Red Blood Cells % 0 %; Platelet Count 291 10^3/cmm (157-399); Red Blood Count 3.99 10^6/uL (3.85-5.65); Red Cell Distribution Width 14.1 % (12.1-15.1); White Blood Count 8.45 10^3/uL (3.29-11.43)
[2024-02-12 13:45] LABS: Bilirubin Urine Negative (Negative); Blood Urine Negative (Negative); Glucose Urine UA Negative (Normal); Ketones Urine Negative (Negative); Leukocyte Esterase Urine Negative (Negative); Nitrate Urine Negative (Negative); Protein Urine Negative (Negative); Specific Gravity, Urine 1.008 (1.005-1.030); Urine Appearance Clear (CLEAR); Urine Color Yellow (Yellow); Urobilinogen Urine 0.2 mg/dL (Negative)
[2024-02-12 13:50] LABS: Add Urine Microscopic? YES; Bacteria Urine None Seen /hpf; Hyaline Casts Urine 2.05 /lpf; RBC Urine 0-2 /hpf (0-2); Squamous Epithelial Cell Urine 0-5 /hpf (0-5); WBC Urine 0-5 /hpf (0-5)
[2024-02-12 13:59] LABS: Alanine Aminotransferase 42 U/L (0-33); Albumin Level 4.1 g/dL (3.5-5.2); Alkaline Phosphatase 110 U/L (35-105); Anion Gap 17.9 (5-19); Aspartate Amino Transferase 49 U/L (0-32); Blood Urea Nitrogen 22 mg/dL (8-23); Calcium 9.1 mg/dL (8.5-10.5); Carbon Dioxide 20 mmol/L (22-29); Chloride 105 mmol/L (98-107); Globulin 3.1 g/dL (1.3-4.6); Glomerular Filtration Rate 41.4 mL/min (90-130); Glucose 134 mg/dL (65-115); Osmolality Calculated 291 mOsm/kg (285-295); Potassium 4.9 mmol/L (3.5-5.1); Sodium 138 mmol/L (136-145); Total Bilirubin 0.2 mg/dL (0.15-1.2); Total Protein 7.2 g/dL (6.6-8.7)
== END 2024-02-12 13:02 | disposition home or self-care (01) ==
LOC: LAB 13:02
PROVIDERS: Visit Provider Nurse Practitioner
DX: M16.12 Unilateral primary osteoarthritis, left hip (principal)
CPT/HCPCS: 36415; 80053; 81001; 85025

== ENCOUNTER → 2024-02-15 11:27 | Outpatient (BNVA) | payer MEDICARE, SELFPAY | PROVIDERS: Visit Provider Family Medicine | DX: Z01.818 Encounter for other preprocedural examination (principal) | CPT/HCPCS: 93005 ==

== ENCOUNTER → 2024-02-18 14:39 | Outpatient (BNVA) | payer MEDICARE, SELFPAY | PROVIDERS: Visit Provider Dermatology | DX: Z48.817 Encounter for surgical aftercare following surgery on the skin and subcutaneous tissue (principal); F42.4 Excoriation (skin-picking) disorder; L57.8 Other skin changes due to chronic exposure to nonionizing radiation; L57.0 Actinic keratosis | CPT/HCPCS: 17000; 99213 ==

== ENCOUNTER 2024-02-22 12:36 | Outpatient (CLI) | payer MEDICARE, SELFPAY | END 2024-02-22 12:37 | disposition home or self-care (01) | PROVIDERS: Visit Provider Family Medicine | DX: Z01.818 Encounter for other preprocedural examination (principal); I44.7 Left bundle-branch block, unspecified; G57.62 Lesion of plantar nerve, left lower limb; M79.672 Pain in left foot | CPT/HCPCS: 64455; 93306; J1100; J3301; J3490 ==

== ENCOUNTER → 2024-03-22 14:33 | Outpatient (BNVA) | payer MEDICARE, SELFPAY | PROVIDERS: Visit Provider Dermatology | DX: L28.1 Prurigo nodularis (principal); F42.4 Excoriation (skin-picking) disorder; L82.1 Other seborrheic keratosis; Z48.817 Encounter for surgical aftercare following surgery on the skin and subcutaneous tissue; Z08 Encounter for follow-up examination after completed treatment for malignant neoplasm; Z85.828 Personal history of other malignant neoplasm of skin; L57.0 Actinic keratosis | CPT/HCPCS: 17000; 99214 ==

== ENCOUNTER 2024-03-23 20:00 | Outpatient (CLI) | payer MEDICARE, SELFPAY | END 2024-03-23 20:01 | disposition home or self-care (01) | LOC: SLEEP 23:15 | DX: G47.33 Obstructive sleep apnea (adult) (pediatric) (principal) | CPT/HCPCS: 95810 ==

== ENCOUNTER → 2024-04-20 14:03 | Outpatient (BNVA) | payer MEDICARE, SELFPAY | DX: E03.9 Hypothyroidism, unspecified (principal); I10 Essential (primary) hypertension; N18.32 Chronic kidney disease, stage 3b | CPT/HCPCS: 80053; 84439; 84443; 85025 ==

== ENCOUNTER → 2024-04-28 13:30 | Outpatient (BNVA) | payer MEDICARE, SELFPAY | PROVIDERS: Visit Provider Nurse Practitioner Family | DX: L28.1 Prurigo nodularis (principal); F42.4 Excoriation (skin-picking) disorder; Z08 Encounter for follow-up examination after completed treatment for malignant neoplasm; Z85.828 Personal history of other malignant neoplasm of skin; L30.9 Dermatitis, unspecified | CPT/HCPCS: 11102; 99213 ==

== ENCOUNTER 2024-05-05 13:13 | Outpatient (CLI) | payer MEDICARE, SELFPAY ==
--- NOTE | 2024-05-05 13:40 | MM_ITS ---
WS: [id number] VIEWS: MLO and CC views both breasts. 3D digital tomosynthesis is also included in this exam. Comparison made with prior exam of 01/05/2020, 07/24/2021, 05/04/2023, 01/13/2017,. Findings: The breasts are extremely dense, which lowers the sensitivity of mammography. No sign of suspicious mass, tumor calcification or architectural distortion. MM/MM scr BI tomosynthesis [id number] Impression: BI-RADS: 2 - Benign FOLLOW-UP: 1 Year Follow-up This mammogram was also analyzed by the Computer Aided Detection System R2 Imag e Alternative Education Teacher.
--- NOTE | 2024-05-05 14:00 | XR_ITS ---
WS: [email or web address] SCREENING DEXA SCAN [employer] CLINICAL INFORMATION: screening COMPARISON: None. FINDINGS: The RIGHT forearm bone mineral density measures 0.496. This corresponds to a T score score of 0.7 and Z score of 2.0. Left femoral neck bone mineral density measures 0.764 g/cm2. This corresponds to a T score of -1.9 and Z score of -1.6. Right femoral neck bone mineral density measures 0.857 g/cm2. This corresponds to a T score -1.2of and Z score of -0.8. Mean femoral neck bone mineral density measures 0.810 g/cm2. This corresponds to a T score of -1.6 and Z score of -1.2. XR/XR DEXA axial skeleton* [id number] IMPRESSION: Osteopenia bilateral hips. Normal bone mineralization RIGHT forearm.
== END 2024-05-05 13:14 | disposition home or self-care (01) ==
DX: Z12.31 Encounter for screening mammogram for malignant neoplasm of breast (principal); Z78.0 Asymptomatic menopausal state; R92.343 Mammographic extreme density, bilateral breasts; M85.88 Other specified disorders of bone density and structure, other site
CPT/HCPCS: 77063; 77067; 77080

== ENCOUNTER → 2024-06-01 13:31 | Outpatient (BNVA) | payer MEDICARE, SELFPAY | PROVIDERS: Visit Provider Internal Medicine Cardiovascular Disease | DX: R06.02 Shortness of breath (principal) | CPT/HCPCS: 36415; 80048; 82306; 83880; 99214 ==

== ENCOUNTER 2024-06-08 10:02 | Outpatient (CLI) | payer MEDICARE, SELFPAY ==
--- NOTE | 2024-06-08 10:00 | CT_ITS ---
WS: [id number] LDCT LUNG CANCER SCREENING TECHNIQUE: Noncontrast CT of the chest with coronal and sagittal reformatted images. CLINICAL INFORMATION: follow-up COMPARISON: 2022 DLP: 80.60 mGy.cm DIvol: Mean CTDIvol: 1.70 (mGy) All CT scans at [facility] use at least one of these dose optimization techniques: automated exposure control; mA and/or kV adjustment per patient size (includes targeted exams where dose is matched to clinical indication); or iterative reconstruction. FINDINGS: Stable tiny 4 mm nodule LEFT upper lobe along the mediastinum is stable. Previously described RIGHT middle lobe opacity has resolved. No new suspicious pulmonary parenchymal abnormalities. Aortic calcification. Normal caliber thoracic aorta. Coronary calcification. No mediastinal or hilar lymphadenopathy. No axillary lymphadenopathy. Adrenal glands are normal. Tiny esophageal hiatal hernia. CT/CT lung screening [id number] IMPRESSION: LUNG-RADS: 2-Benign Appearance or Behavior FOLLOW UP: 12 Month: Continue annual screening with LDCT
== END 2024-06-08 10:03 | disposition home or self-care (01) ==
LOC: RAD 10:04
PROVIDERS: Visit Provider Family Medicine
DX: Z12.2 Encounter for screening for malignant neoplasm of respiratory organs (principal); Z87.891 Personal history of nicotine dependence; I70.0 Atherosclerosis of aorta; I25.10 Atherosclerotic heart disease of native coronary artery without angina pectoris
CPT/HCPCS: 71271

== ENCOUNTER 2024-06-28 14:24 | Emergency (ER) | payer MEDICARE, MEDICAID, SELFPAY ==
[2024-06-28] VITALS (7 sets, daily range): BP systolic 98–128; BP diastolic 60–78; PULSE 66–70; RESP 18; TEMP 36.6; O2SAT 90–99
--- NOTE | 2024-06-28 14:26 | XRR_ITS ---
PROCEDURE INFORMATION: Exam: XR Chest Exam date and time: 06/28/2024 3:22 PM Age: 64 years old Clinical indication: Shortness of breath; Additional info: SOB TECHNIQUE: Imaging protocol: Radiologic exam of the chest. Views: 1 view. COMPARISON: CT lung screening [id number] 06/08/2024 10:19 AM FINDINGS: Lungs: There is no consolidation. Dense breast parenchyma projects over the inferolateral lower lungs bilaterally. Pleural spaces: There is no pleural effusion or pneumothorax. Heart/Mediastinum: Cardiomediastinal contours are unremarkable. Bones/joints: Lower cervical fusion is partially imaged. No acute osseous findings. XR/XR chest 1V portable [id number] IMPRESSION: No acute findings.
--- NOTE | 2024-06-28 14:49 | ECG_ITS ---
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 Measurements Intervals [place] Rate: 65 P: 55 NC: 142 QRS: 57 QRSD: 153 T: 52 QT: 428 QTc: 446 Interpretive Statements SINUS RHYTHM LEFT BUNDLE BRANCH BLOCK [120+ ms QRS DURATION, 80+ ms Q/S IN V1/V2, 85+ ms R IN I/aVL/V5/V6] Compared to ECG 07/15/2022 21:40:37 Left bundle-branch block now present Electronically Signed On 06-29-2024 21:32:58 CDT by Divya Antonio M.D. [email or web address] [id number]
[2024-06-28 14:50] LABS: Basophils # 0.1 10^3/uL (0.0-0.1); Basophils % 1.2 %; Eosinophils # 0.2 10^3/uL (0.0-0.8); Eosinophils % 2.7 %; Hematocrit 31.3 % (36-47); Lymphocytes # 2.4 10^3/uL (0.8-4.8); Lymphocytes % 27.3 %; Mean Corpuscular HGB Conc 30.7 g/dL (30-55); Mean Corpuscular Hemoglobin 29.4 pg (27-33); Mean Platelet Volume 9.6 fL (7.4-10.4); Monocytes # 0.7 10^3/uL (0.2-0.9); Neutrophils # 5.23 10^3/uL (1.8-7.7); Neutrophils % 60.2 %; Nucleated Red Blood Cells % 0 %; Platelet Count 289 10^3/cmm (157-399); Red Blood Count 3.26 10^6/uL (3.85-5.65); Red Cell Distribution Width 15.6 % (12.1-15.1); White Blood Count 8.66 10^3/uL (3.29-11.43)
[2024-06-28 15:04] LABS: Troponin(5th) Baseline 8 ng/L (0-10)
--- NOTE | 2024-06-28 15:14 | ED_ITS ---
HPI - SOB/Dyspnea 2 General: Chief Complaint: Shortness of Breath/Dyspnea Stated Complaint: dr omar estrada, gained 6lbs in 2 days, sob, weak Time Seen by Provider: 06/28/24 15:04 Source: patient Mode of arrival: ambulatory Limitations: no limitations History of Present Illness: HPI Narrative: 64-year-old female with a history of sle epiness of heart failure states that over the last week she has been having some increasing shortness of breath especially with exertion she states that she had had a 6 pound weight gain in the last 2 days as well. She denies having any edema in her lower extremities. She denies any fever denies any vomiting or diarrhea denies any chest pain. Associated symptoms: Deny abdominal pain, fever(s), nausea or vomiting Related Data Home Medications ?Medication ?Instructions ?Recorded ?Confirmed aspirin 81 mg tablet,delayed 81 mg PO DAILY@05/0406/28/24 release calcium 600 mg (as 1 tab PO DAILY@72905/04/20 06/28/24 carbonate)-vitamin D3 5 mcg (200 unit) tablet vitamin B complex 1 tab PO DAILY@72905/04/20 06/28/24 turmeric/curcumin 07/26/21 06/28/24 tiotropium bromide 1.25 2 puff inhalation DAILY PRN COPD 05/11/23 06/28/24 mcg/actuation mist for inhalation (Spiriva Respimat) antiarthritic combination no.2 900 900 mg PO DAILY 09/0706/28/24 mg tablet (glucosamine-chondroitin) atorvastatin 80 mg tablet 80 mg PO BEDTIME 06/28/24 bupropion HCl 300 mg 24 hr tablet, 300 mg PO QAM 06/2806/28/24 extended release exenatide 5 mcg/dose (250 5 mcg SUBCUT BID 06/28/24 mcg/mL)1.2 mL subcutaneous pen injector (Byetta) gabapentin 300 mg capsule See Rx Instructions .Route . COMPLEX 06/28/24 06/28/24 levothyroxine 75 mcg tablet 75 mcg PO QAM 06/28/24 rnfsbkos-amdo-uix-folic acid 18 1 tab PO QAM 06/28/24 06/28/24 mg-0.4 mg tablet (One Daily For Women) Previous Rx's ?Medication ?Instructions ?Recorded nitroglycerin 0.4 mg sublingual 0.4 mg sublingual Q5M PRN chest 10/01/20 tablet pain #25 tabs budesonide-formoterol HFA 80 2 puff inhalation BID #10 .2 grams 03/24/23 mcg-4.5 mcg/actuation aerosol inhaler (Symbicort) ROM hinged left knee brace #1 ea 10/12/23 rolling walker with brakes #1 ea 10/12/23 cyclobenzaprine 10 mg tablet 10 mg PO TID PRN muscle s pasm #90 11/26/23 tabs tramadol 50 mg tablet 50 mg PO Q8H PRN pain #21 ta bs 11/27/23 metoprolol succinate 25 mg 12.5 mg (1/2 x 25 mg) PO DA KATALINA #45 11/30/23 tablet,extended release 24 hr tabs isosorbide mononitrate 30 mg 15 mg (1/2 x 30 mg) PO DA KATALINA #60 03/02/24 tablet,extended release 24 hr tabs pantoprazole 40 mg tablet,delayed 40 mg PO DAILY 90 da ys #90 tabs 04/20/24 release (Protonix) spironolactone 25 mg tablet 12.5 mg (1/2 x 25 mg) PO D AILY PRN 04/24/24 weight gain #45 tabs sertraline 100 mg tablet 200 mg (2 x 100 mg) PO DAILY #60 04/27/24 tabs liraglutide 0.6 mg/0.1 mL (18 mg/3 0.6 mg (0.1 mL) SUB CUT DAILY #6 mL 06/16/24 mL) subcutaneous pen injector (Victoza 2-Parkre) Allergies Allergy/AdvReac Type Severity Reaction Status Date / Time No Known Allergies Allergy Verified 06/28/24 14:52 Review of Systems 2 Const: Denies: fever(s), chills, body aches or change in appetite ENMT: Denies: throat pain or dental pain Resp: Reports: dyspnea GI: Denies: abdominal pain, nausea, vomiting or diarrhea Musc: Denies: neck pain or back pain Skin/Breast: Denies: rash Neuro: Denies: headache(s) PFSH ED 2 PFSH: Medical History Post-menopausal Obesity (BMI 30.0-34.9) Foot pain, left Primary osteoarthritis of left knee Primary osteoarthritis of left hip Pain of left calf CORY on CPAP Pulmonary nodules 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, face Chondromalacia of patella, left Closed fracture of lateral condyle of distal end of left femur Chronic left hip pain Instability of left knee joint Effusion, left knee History of nonmelanoma skin cancer Multiple sites, insect bite, nonvenomous Psychiatric care History of rheumatic fever as a child CHF (NYHA class III, ACC/AHA stage C) LVEF 35% LBBB (left bundle branch block) Unstable angina Urinary incontinence, mixed Back pain, chronic Anxiety Depression Hypertension PAD evalutation normal exam 09/23/2023 by Kinjal Bronson Hypothyroidism Osteoarthritis Surgical History Hx of colonoscopy with polypectomy 2018 [place] H/O vaginal surgery Urethral sling History of 2 sections H/O Spinal surgery ALDF and ACDF. S/P lumpectomy, left breast S/P tonsillectomy S/P colonoscopy S/P excision of lipoma Right buttocks. H/O left wrist surgery Family History Mother Anemia Alzheimer disease Father Heart disease Hypertension Kidney disease COPD (chronic obstructive pulmonary disease) Grandfather Hypertension Sister Thyroid disease Grandmother Uterine cancer Social History Smoking and tobacco/nicotine status: current every day tobacco/nicotine user (quit cigarettes but does vape) Physical Exam 2 Const: COMMON NORMALS: no acute distress, patient oriented x3 and healthy appearing HENMT: COMMON NORMALS: normocephalic and atraumatic HEAD & SCALP: n ormocephalic and atraumatic Eye: COMMON NORMALS: conjunctivae normal CONJUNCTIVA: Yes conjunctivae normal Neck/C-Spine: COMMON NORMALS: full ROM and supple Chest: COMMONS NORMALS: normal inspection of the chest and normal palpation of entire chest wall Resp: COMMON NORMALS: normal respiratory effort, No retractions, No use of accessory muscles and clear to auscultation bilaterally AUSCULTATION: clear to auscultation bilaterally Cardio: COMMON NORMALS: regular rate, regular rhythm and No murmurs present (Cardio) RATE: regular rate RHYTHM: regular rhythm Extremity: COMMON NORMALS: normal to inspection and full ROM Neuro: COMMON NORMALS: patient oriented x3, moves all extremities and no focal motor deficits Psych: COMMON NORMALS: mental status grossly normal, Normal thought process present and cooperative THOUGHT PROCESS: Normal thought process present Skin: COMMON NORMALS: no rashes or lesions noted and no wounds GENERAL SKIN EXAM: no rashes or lesions noted Course 2 Vital Signs: Vital signs: Vital Signs Temperature 97.9 F 06/28/24 14:45 Pulse Rate 67 06/28/24 14:45 Respiratory Rate 18 06/28/24 14:45 Blood Pressure 98/63 06/28/24 14:45 Pulse Oximetry 97 06/28/24 14:45 Oxygen Delivery Me thod Room Air 06/28/24 14:45 MDM - SOB/Dyspnea Medical Decision Making Patient presents here with dyspnea she has been well-appearing here no distress blood work is normal no signs of any severe pulmonary edema her troponin is normal no signs of pulmonary embolism she stable for discharge follow-up PCP return if worsening Medical Records I reviewed the patient's medical records. Lab Data I reviewed the patient's lab results. 06/28/24 14:41 06/28/24 14:41 Labs/Radiology: Radiology Impressions Chest X-Ray 06/28/24 14:26 IMPRESSION: No acute findings. Laboratory Results WBC 8.66 10^3/uL (3.29-11.43) 06/28/24 14:41 RBC 3.26 10^6/uL (3.85-5.65) L 06/28/24 14:41 Hgb 9.60 g/dL (11.27-16.99) L 06/28/24 14:41 Hct 31.3 % (36-47) L 06/28/24 14:41 MCV 96.0 fl (85-98) 06/28/24 14:41 MCH 29.4 pg (27-33) 06/28/24 14:41 MCHC 30.7 g/dL (30-55) 06/28/24 14:41 RDW 15.6 % (12.1-15.1) H 06/28/24 14:41 Plt Count 289 10^3/cmm (157-399) 06/28/24 14:41 MPV 9.6 fL (7.4-10.4) 06/28/24 14:41 Neut % (Auto) 60.2 % 06/28/24 14:41 Lymph % (Auto) 27.3 % 06/28/24 14:41 [place] % (Auto) 8.0 % 06/28/24 14:41 Eos % (Auto) 2.7 % 06/28/24 14:41 Baso % (Auto) 1.2 % 06/28/24 14:41 Neut # (Auto) 5.23 10^3/uL (1.8-7.7) 06/28/24 14:41 Lymph # (Auto) 2.4 10^3/uL (0.8-4.8) 06/28/24 14:41 [place] # (Auto) 0.7 10^3/uL (0.2-0.9) 06/28/24 14:41 Eos # (Auto) 0.2 10^3/uL (0.0-0.8) 06/28/24 14:41 Baso # (Auto) 0.1 10^3/uL (0.0-0.1) 06/28/24 14:41 Nucleated RBC % (auto) 0 % 06/28/24 14:41 Nucleated RBCs # 0.0 /100WBC 06/28/24 14:41 D-Dimer 0.41 ug/mLFEU (0-0.59) 06/28/24 14:41 Sodium 140 mmol/L (136-145) 06/28/24 14:41 Potassium 5.1 mmol/L (3.5-5.1) 06/28/24 14:41 Chloride 107 mmol/L (98-107) 06/28/24 14:41 Carbon Dioxide 21 mmol/L (22-29) L 06/28/24 14:41 Anion Gap 17.1 (5-19) 06/28/24 14:41 BUN 22 mg/dL (8-23) 06/28/24 14:41 Creatinine 1.7 mg/dL (0.5-0.9) H 06/28/24 14:41 GFR Calculation 30.3 mL/min (90-130) L 06/28/24 14:41 Glucose 94 mg/dL (65-115) 06/28/24 14:41 Calculated Osmolality 293 mOsm/kg (285-295) 06/28/24 14:41 Calcium 8.9 mg/dL (8.5-10.5) 06/28/24 14:41 Total Bilirubin 0.2 mg/dL (0.15-1.2) 06/28/24 14:41 AST 32 U/L (0-32) 06/28/24 14:41 ALT 30 U/L (0-33) 06/28/24 14:41 Alkaline Phosphatase 88 U/L (35-105) 06/28/24 14:41 Troponin T Baseline 8 ng/L (0-10) 06/28/24 14:41 NT-Pro-B Natriuret Pep 141 pg/mL (0-125) H 06/28/24 14:41 Total Protein 7.0 g/dL (6.6-8.7) 06/28/24 14:41 Albumin 4.3 g/dL (3.5-5.2) 06/28/24 14:41 Globulin 2.7 g/dL (1.3-4.6) 06/28/24 14:41 All radiology interpretation(s) finalized by discharge EKG Data EKG 1: I personally reviewed and interpreted this EKG as follows: EKG Interpretation Date: 06/28/24 EKG interpretation time: 14:49 Interpretation: nsr hr [address] elevation qrs 153 qtc 439 EKG 2: I personally reviewed and interpreted this EKG as follows: EKG Interpretation Date: 06/28/24 EKG interpretation time: 16:26 Interpretation: nsr hr [address] elevation qrs 150 qtc 430 Discharge Plan Discharge Patient Disposition: Home Clinical Impression: Shortness of breath Condition: Stable Prescriptions: No Action nitroglycerin 0.4 mg tablet, sublingual 0.4 mg sublingual Q5M PRN (Reason: chest pain) Qty: 25 2RF Rx Instructions: do not exceed 3 doses per episode metoprolol succinate 25 mg tablet extended release 24 hr 12.5 mg PO DAILY Qty: 45 3RF pantoprazole [Protonix] 40 mg tablet,delayed release (DR/EC) 40 mg PO DAILY 90 Days Qty: 90 1RF (DME) turmeric/curcumin capsule 0 .Route .MEDSUPPLY (DME) rolling walker with brakes See Rx Instructions .Route .MEDSUPPLY Qty: 1 0RF Rx Instructions: As directed (DME) ROM hinged left knee brace See Rx Instructions .Route .MEDSUPPLY Qty: 1 0RF Rx Instructions: ROM 0-40 degrees flexion sertraline 100 mg tablet 200 mg PO DAILY Qty: 60 11RF glucosamine-chondroitin 900 mg tablet 900 mg PO DAILY liraglutide [Victoza 2-Parker] 0.6 mg/0.1 mL (18 mg/3 mL) pen injector 0.6 mg SUBCUT DAILY Qty: 6 0RF budesonide-formoterol [Symbicort] 80-4.5 mcg/actuation HFA aerosol inhaler 2 puff inhalation BID Qty: 10.2 6RF cyclobenzaprine 10 mg tablet 10 mg PO TID PRN (Reason: muscle spasm) Qty: 90 3RF tramadol 50 mg tablet 50 mg PO Q8H PRN (Reason: pain) Qty: 21 0RF isosorbide mononitrate 30 mg tablet extended release 24 hr 15 mg PO DAILY Qty: 60 1RF spironolactone 25 mg tablet 12.5 mg PO DAILY PRN (Reason: weight gain) Qty: 45 3RF calcium carbonate-vitamin D3 600 mg(1,500mg) -200 unit Tablet 1 tab PO DAILY@0730 aspirin 81 mg Tablet,Delayed Release (Dr/Ec) 81 mg PO DAILY@0730 vitamin B complex Tablet 1 tab PO DAILY@0730 Spiriva Respimat 1.25 mcg/actuation mist 2 puff inhalation DAILY PRN (Reason: COPD) exenatide [Byetta] 5 mcg/dose (250 mcg/mL) 1.2 mL pen injector 5 mcg SUBCUT BID One Daily For Women 18-0.4 mg Tablet 1 tab PO QAM atorvastatin 80 mg tablet 80 mg PO BEDTIME levothyroxine 75 mcg tablet 75 mcg PO QAM gabapentin 300 mg capsule See Rx Instructions .ROUTE .COMPLEX Rx Instructions: TAKE 1 CAPSULE BY MOUTH THREE TIMES DAILY NEEDED FOR PAIN (730AM , 2PM, 10PM) bupropion HCl 300 mg tablet extended release 24 hr 300 mg PO QAM Discharge Orders: Discharge ED (Routine); Ordered 06/28/24 Ordered By: Michael Valentin Referrals: Mariaa Smith DO [Primary Care Provider] - 4-7 days Discharge Diet: Advance as tolerated Discharge Activity: Resume usual activity Patient Instructions: Shortness of Breath (ED) Print Language: [place] Coding Level of Care Code ED Manufacturing Mechanic for Sulma Alonso
[2024-06-28 15:27] LABS: Alanine Aminotransferase 30 U/L (0-33); Albumin Level 4.3 g/dL (3.5-5.2); Alkaline Phosphatase 88 U/L (35-105); Anion Gap 17.1 (5-19); Aspartate Amino Transferase 32 U/L (0-32); Blood Urea Nitrogen 22 mg/dL (8-23); Calcium 8.9 mg/dL (8.5-10.5); Carbon Dioxide 21 mmol/L (22-29); Chloride 107 mmol/L (98-107); Creatinine Clr Calc Pharmacy 40.0571; Globulin 2.7 g/dL (1.3-4.6); Glomerular Filtration Rate 30.3 mL/min (90-130); Glucose 94 mg/dL (65-115); NT Pro B Type Natriuretic Pept 141 pg/mL (0-125); Osmolality Calculated 293 mOsm/kg (285-295); Potassium 5.1 mmol/L (3.5-5.1); Sodium 140 mmol/L (136-145); Total Bilirubin 0.2 mg/dL (0.15-1.2)
[2024-06-28 15:46] LABS: D Dimer 0.41 ug/mLFEU (0-0.59)
[2024-06-28] MEDS: FUROsemide 10 mg/mL SDV 4mL 40 MG IVP (16:24)
--- NOTE | 2024-06-28 16:26 | ECG_ITS ---
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 Measurements Intervals [place] Rate: 66 P: 125 SD: 149 QRS: 46 QRSD: 150 T: 110 QT: 417 QTc: 438 Interpretive Statements SINUS RHYTHM POSSIBLE LEFT ATRIAL ENLARGEMENT [-0.1mV P-WAVE IN V1/V2] INTRAVENTRICULAR CONDUCTION DELAY [130+ ms QRS DURATION] Compared to ECG 06/28/2024 14:49:44 Intraventricular conduction delay now present Left bundle-branch block no longer present Electronically Signed On 06-29-2024 21:47:34 CDT by Divya Antonio M.D. [id number] [id number]
== END 2024-06-28 16:55 | disposition home or self-care (01) ==
PROVIDERS: Emergency Provider Emergency Medicine; PCP Family Medicine
DX: R06.02 Shortness of breath (principal); Z79.82 Long term (current) use of aspirin; F17.290 Nicotine dependence, other tobacco product, uncomplicated; Z85.828 Personal history of other malignant neoplasm of skin; I11.0 Hypertensive heart disease with heart failure; I50.9 Heart failure, unspecified
CPT/HCPCS: 36415; 71045; 80053; 83880; 84484; 85025; 85378; 93005; 96374; 99285; J1940

== ENCOUNTER 2024-08-04 20:00 | Outpatient (CLI) | payer MEDICARE, MEDICAID, SELFPAY | END 2024-08-04 20:01 | disposition home or self-care (01) | LOC: SLEEP 23:19 | PROVIDERS: PCP Family Medicine; Referring Provider Family Medicine; Visit Provider Internal Medicine Pulmonary Disease | DX: G47.33 Obstructive sleep apnea (adult) (pediatric) (principal) | CPT/HCPCS: 95811 ==

== ENCOUNTER → 2024-08-09 15:11 | Outpatient (BNVA) | payer MEDICARE, MEDICAID, SELFPAY | PROVIDERS: PCP Family Medicine; Visit Provider Family Medicine | DX: N18.32 Chronic kidney disease, stage 3b (principal) | CPT/HCPCS: 80048 ==

== ENCOUNTER → 2024-09-19 11:56 | Outpatient (BNVA) | payer MEDICARE, MEDICAID, SELFPAY | PROVIDERS: PCP Family Medicine; Visit Provider Family Medicine | DX: N18.32 Chronic kidney disease, stage 3b (principal) | CPT/HCPCS: 80048 ==

== ENCOUNTER → 2024-10-19 15:32 | Outpatient (BNVA) | payer MEDICARE, SELFPAY | PROVIDERS: PCP Family Medicine; Visit Provider Nurse Practitioner Family | DX: L28.1 Prurigo nodularis (principal); L28.0 Lichen simplex chronicus; R23.8 Other skin changes; F42.4 Excoriation (skin-picking) disorder; L57.8 Other skin changes due to chronic exposure to nonionizing radiation; Z08 Encounter for follow-up examination after completed treatment for malignant neoplasm; Z85.828 Personal history of other malignant neoplasm of skin; L57.0 Actinic keratosis | CPT/HCPCS: 17000; 99214 ==

== ENCOUNTER 2024-10-20 14:36 | Outpatient (CLI) | payer MEDICARE, SELFPAY ==
[2024-10-20 16:17] LABS: Hematocrit 33.9 % (36-47); Hemoglobin 10.00 g/dL (11.27-16.99); Mean Corpuscular HGB Conc 29.5 g/dL (30-55); Mean Corpuscular Hemoglobin 24.7 pg (27-33); Mean Corpuscular Volume 83.7 fl (85-98); Nucleated Red Blood Cells % 0 %; Platelet Count 356 10^3/cmm (157-399); Red Blood Count 4.05 10^6/uL (3.85-5.65); White Blood Count 10.39 10^3/uL (3.29-11.43)
[2024-10-20 16:58] LABS: Calcium 9.5 mg/dL (8.5-10.5)
[2024-10-20 16:59] LABS: Albumin Level 4.3 g/dL (3.5-5.2); Anion Gap 18.2 (5-19); Blood Urea Nitrogen 30 mg/dL (8-23); Calcium 9.5 mg/dL (8.5-10.5); Carbon Dioxide 21 mmol/L (22-29); Chloride 103 mmol/L (98-107); Glucose 98 mg/dL (65-115); Potassium 5.2 mmol/L (3.5-5.1); Sodium 137 mmol/L (136-145)
[2024-10-20 18:00] LABS: Creatinine Urine, Random 150 mg/dL (28-217); Microalbum Creatinine Ratio Ur 13 mg/dL (0-20)
== END 2024-10-20 14:37 | disposition home or self-care (01) ==
LOC: LAB 14:39
PROVIDERS: PCP Family Medicine; Visit Provider Nurse Practitioner
DX: N18.31 Chronic kidney disease, stage 3a (principal)
CPT/HCPCS: 36415; 80069; 82044; 82306; 82310; 83970; 85025

== ENCOUNTER → 2024-10-31 15:40 | Outpatient (BNVA) | payer MEDICARE, SELFPAY | PROVIDERS: PCP Family Medicine; Visit Provider Family Medicine | DX: D64.9 Anemia, unspecified (principal); N95.0 Postmenopausal bleeding | CPT/HCPCS: 83550 ==

== ENCOUNTER 2024-11-07 14:06 | Outpatient (CLI) | payer MEDICARE, SELFPAY ==
--- NOTE | 2024-11-07 14:17 | US_ITS ---
WS: [id number] RENAL ULTRASOUND HISTORY: STAGE 3A CHRONIC KIDNEY DZ COMPARISON: 04/25/2020 TECHNIQUE: 2-D and color Doppler imaging of the kidney submitted. Right kidney: 9.1 cm x 5.3 cm x 5.2 cm. Cortex: 1.0 cm Normal echogenicity with no hydronephrosis or mass. Left kidney: 8.7 cm x 4.0 cm x 4.5 cm. Cortex: 1.1 cm Normal echogenicity with no hydronephrosis or mass. Aorta: Normal. Urinary Bladder: Normal distention. US/US renal BI* [id number] IMPRESSION: 1. Kidneys have decreased in length since the prior ultrasound of 04/25/2020. 2. RIGHT kidney has decreased in length from 10.6 cm to 9.1 cm. 3. LEFT kidney is decreased in length from 10.7 cm to 8.7 cm. 4. No mass or hydronephrosis.
== END 2024-11-07 14:07 | disposition home or self-care (01) ==
LOC: RAD 14:08
PROVIDERS: PCP Family Medicine; Visit Provider Internal Medicine Nephrology
DX: N18.31 Chronic kidney disease, stage 3a (principal)
CPT/HCPCS: 76770

== ENCOUNTER → 2024-12-06 09:23 | Outpatient (BNVA) | payer MEDICARE, SELFPAY | PROVIDERS: PCP Family Medicine; Visit Provider Family Medicine | DX: Z01.419 Encounter for gynecological examination (general) (routine) without abnormal findings (principal) | CPT/HCPCS: 87624 ==

== ENCOUNTER → 2025-01-11 15:47 | Outpatient (BNVA) | payer MEDICARE, SELFPAY | PROVIDERS: PCP Family Medicine; Visit Provider Family Medicine | DX: N18.31 Chronic kidney disease, stage 3a (principal); N95.0 Postmenopausal bleeding | CPT/HCPCS: 80069; 82728; 83550 ==

== ENCOUNTER → 2025-01-12 16:26 | Outpatient (BNVA) | payer MEDICARE, SELFPAY | PROVIDERS: PCP Family Medicine; Visit Provider Family Medicine | DX: N18.31 Chronic kidney disease, stage 3a (principal) | CPT/HCPCS: 82043 ==

== ENCOUNTER → 2025-02-02 13:02 | Outpatient (BNVA) | payer MEDICARE, SELFPAY | PROVIDERS: PCP Family Medicine; Visit Provider Internal Medicine Cardiovascular Disease | DX: I13.0 Hypertensive heart and chronic kidney disease with heart failure and stage 1 through stage 4 chronic kidney disease, or unspecified chronic kidney disease (principal); N18.30 Chronic kidney disease, stage 3 unspecified; I50.30 Unspecified diastolic (congestive) heart failure; E78.00 Pure hypercholesterolemia, unspecified; I44.7 Left bundle-branch block, unspecified; F17.219 Nicotine dependence, cigarettes, with unspecified nicotine-induced disorders; R06.02 Shortness of breath; Z79.01 Long term (current) use of anticoagulants | CPT/HCPCS: 36415; 80048; 81001; 83880; 85025; 99214 ==

== ENCOUNTER → 2025-02-03 12:49 | Outpatient (BNVA) | payer MEDICARE, SELFPAY | PROVIDERS: PCP Family Medicine; Visit Provider Family Medicine | DX: N18.32 Chronic kidney disease, stage 3b (principal); E03.9 Hypothyroidism, unspecified; Z78.0 Asymptomatic menopausal state; M85.88 Other specified disorders of bone density and structure, other site | CPT/HCPCS: 80069; 82043; 82306; 82542; 84439; 84443 ==

== ENCOUNTER → 2025-02-14 16:43 | Outpatient (BNVA) | payer MEDICARE, SELFPAY | PROVIDERS: PCP Family Medicine; Visit Provider Family Medicine | DX: N18.32 Chronic kidney disease, stage 3b (principal); I12.9 Hypertensive chronic kidney disease with stage 1 through stage 4 chronic kidney disease, or unspecified chronic kidney disease | CPT/HCPCS: 82310; 83970 ==